=== PATIENT | female | born 1940 | race Caucasian/White ===

== ENCOUNTER → 2016-04-27 | Outpatient (CLI) | payer MEDICARE ==
[~2016-04-27] MED LIST: ALPR0.5T7 PO; AMOX-358 PO; CEPH500C PO; CHOL200014 PO; DEXL60CA PO; DOCU100C37 PO; HYDR-3820 PO; HYDR12.5 PO; IBUP-1773 PO; IOHEXOL 350 MG/ML 100 ML (OMNIPAQUE 350) VIAL IV ONE; LORA10TA7 PO; LOSA50TA36 PO; METR500T PO; NF-XOP-HFA IH; NS 100 ML (IVPB) BAG IV ONE; NYST30PO9 TP; ONDN4T PO; OXYC-201 PO; PANT40TA3 PO; PROM25TA14 PO; SUCR1TAB PO; SUCR1TAB36 PO; Zofran
--- OUTSIDE RECORDS SUMMARY | 2016-04-27 13:37 | XMS REPORT | Continuity of Care Document ---
Author Author [facility] Organization [facility] Address Unknown Phone Unavailable Care Team Providers Care Lab Instructor Name Role Phone ELMA GUZMAN MD PCP Insurance Providers Payer Name Policy Number Subscriber Name Relationship [employer] [id number] Debra Ramirez 19 Self / Same As Patient Blue Cross [facility] Supp [id number] Debra Ramirez 19 Self / Same As Patient Advance Directives Directive Response Recorded Date/Time Advance Directives No 08/05/15 12:08pm Health Care Power of Sign Painter Apprentice No 08/05/15 12:08pm Organ Donor No 08/05/15 12:08pm Resuscitation Status Full Code 08/05/15 12:08pm Problems No problem information available. Medications Current Home Medications Medication Dose Units Route Directions Days/Qty Instructions Start Date Loratadine 10 Mg 10 Mg Oral Daily 08/05/15 Hydrocodone/Acetaminophen 1 Each 1 Each Oral Every 6 Hours as needed for Pain 08/05/15 Losartan Potassium 50 Mg 50 Mg Oral Daily 08/05/15 Hydrochlorothiazide 12.5 Mg 12.5 Mg Oral Daily 08/05/15 Alprazolam 0.5 Mg 0.5 Mg Oral Three Times A Day as needed for Anxiety 08/05/15 Cholecalciferol (Vitamin D3) 2,000 Unit 2,000 Unit Oral Twice A Day 08/05/15 Ondansetron Hcl 4 Mg 4 Mg Oral Every 4HRS as needed for Nausea/Vomiting 08/05/15 Promethazine Hcl (Phenergan Tablet) 25 Mg 25 Mg Oral Every 4HRS as needed for Nausea/Vomiting 08/05/15 Pantoprazole Sodium 40 Mg 40 Mg Oral Daily 08/05/15 Sucralfate 1 Gm 1 Gm Oral 4X Day Before Meals/At Bedtime 08/05/15 Levalbuterol Tartrate 15 Gm 1-2 Puff Inhalation Every 4HRS as needed for Shortness Of Breath 08/05/15 Past Home Medications Medication Directions Ordered Status Cephalexin Monohydrate (Keflex) 500 Mg Capsule, 1 Each Oral Four Times Daily 07/06/10 Discontinued Metronidazole (Flagyl) 500 Mg Tablet, 1 Each Oral Twice A Day 07/06/10 Discontinued Social History Social History Problem Response Recorded Date/Time Alcohol Use Denies Use 08/05/2015 12:08pm Recreational Drug Use No 08/05/2015 12:08pm Recent Foreign Travel No 08/05/2015 12:08pm Recent Infectious Disease Exposure No 08/05/2015 12:08pm Hospitalization with Isolation Denies 08/05/2015 12:08pm Smoking Status Former Smoker 08/05/2015 12:05pm Query Response Start Date Stop Date Smoking Status Former Smoker Hospital Discharge Instructions No hospital discharge instructions. Plan of Care Discharge Date 08/05/15 12:45pm Prescriptions See Medication Section Functional Status No functional status results. Allergies, Adverse Reactions, Alerts Allergen Type Severity Reaction Status Last Updated Levofloxacin Allergy Unknown NAUSEA Active 08/05/15 Immunizations Name Given Type Date of Pneumonia Vaccine 08/05/11 Historical Vital Signs Acute Vital Signs Vital Response Date/Time Pulse Rate (adult) 85 bpm (60 - 90) 08/05/2015 12:08pm O2 Sat by Pulse Oximetry 96 % (88 - 100) 08/05/2015 12:08pm Blood Pressure 164/82 mm Hg 08/05/2015 12:08pm Height (Feet) 5 feet 08/05/2015 12:08pm Height (Inches) 7.00 inches 08/05/2015 12:08pm Height (Calculated Centimeters) 170.719871 cm 08/05/2015 12:08pm Weight (Pounds) 318 pounds 08/05/2015 12:08pm Weight (Ounces) 0.0 oz 08/05/2015 12:08pm Weight (Calculated Grams) 567716.375 gm 08/05/2015 12:08pm Weight (Calculated Kilograms) 144.429510 kilograms 08/05/2015 12:08pm Calculated BMI 52.91 08/05/2015 12:08pm Results Laboratory Results Test Name Result Units Flags Reference Collection Date/Time Result Date/ Time Comments Urine Color YELLOW 08/05/2015 12:35pm 08/05/2015 1:26pm Urine Clarity CLEAR 08/05/2015 12:35pm 08/05/2015 1:26pm Urine pH 5 5-9 08/05/2015 12:35pm 08/05/2015 1:26pm Urine Specific [place] 1.020 1.016-1.022 08/05/2015 12:35pm 2015 1:26pm Urine Protein NEGATIVE NEGATIVE 08/05/2015 12:35pm 08/05/2015 1:26pm Urine Glucose (UA) NEGATIVE NEGATIVE 08/05/2015 12:35pm 08/05/2015 1: 26pm Urine RBC (Auto) NEGATIVE NEGATIVE 08/05/2015 12:35pm 08/05/2015 1: 26pm Urine Ketones NEGATIVE NEGATIVE 08/05/2015 12:35pm 08/05/2015 1:26pm Urine Nitrite NEGATIVE NEGATIVE 08/05/2015 12:35pm 08/05/2015 1:26pm Urine Bilirubin NEGATIVE NEGATIVE 08/05/2015 12:35pm 08/05/2015 1: 26pm Urine Urobilinogen NORMAL MG/DL NORMAL 08/05/2015 12:35pm 08/05/2015 1: 26pm Urine Leukocyte Esterase NEGATIVE NEGATIVE 08/05/2015 12:35pm 2015 1:26pm Urine RBC NONE /HPF 08/05/2015 12:35pm 08/05/2015 1:26pm Urine WBC NONE /HPF 08/05/2015 12:35pm 08/05/2015 1:26pm Urine Bacteria NEGATIVE /HPF 08/05/2015 12:35pm 08/05/2015 1:26pm Urine Squamous Epithelial Cells 5-10 /HPF 08/05/2015 12:35pm 2015 1:26pm Urine Crystals NONE /LPF 08/05/2015 12:35pm 08/05/2015 1:26pm Urine Casts NONE /LPF 08/05/2015 12:35pm 08/05/2015 1:26pm Urine Mucus NEGATIVE /LPF 08/05/2015 12:35pm 08/05/2015 1:26pm Urine Culture Indicated NO 08/05/2015 12:35pm 08/05/2015 1:26pm Procedures Procedure Status Date Provider(s) Tracing only of electrocardiogram Active 08/05/15 ADELINA KEEN DO Encounters Encounter Location Arrival/Admit Date Discharge/Depart Date Attending Provider Departed Clinic [facility] 08/05/15 11:54am 08/05/15 12: 45pm ADELINA KEEN DO
[2016-04-27 14:14] LABS: BLOOD UREA NITROGEN 15 MG/DL (7-18); BUN/CREATININE RATIO 18; CREATININE SERUM 0.82 MG/DL (0.60-1.30); GFR ESTIMATED > 60
--- NOTE | 2016-04-27 18:17 | Diagnostic Imaging Report ---
PROCEDURE: CT chest and abdomen with contrast. TECHNIQUE: Multiple contiguous axial images were obtained through the chest and abdomen after the administration of intravenous contrast. INDICATION: Left upper quadrant pain. 100 mL of Omnipaque 350 is administered intravenously. FINDINGS: CT chest: The lungs demonstrate minimal atelectasis or scarring in the left lung base and in the anterior upper right lung. A tiny calcified granuloma in the lateral mid right lung is seen. There is otherwise no significant consolidation, mass or suspicious nodule. The heart size is normal. No pericardial or pleural effusion. No mediastinal mass. No significantly enlarged lymph nodes in the mediastinum or juve are seen. No axillary lymphadenopathy is noted. The osseous structures demonstrate degenerative changes in the mid and lower thoracic spine. CT abdomen: The liver demonstrates diffuse hepatic steatosis. The spleen, the pancreas and adrenal glands appear unremarkable. Cholecystectomy clips are seen. The kidneys have symmetric enhancement and contrast excretion. No hydronephrosis. The abdominal aorta is normal in caliber. No para-aortic significantly enlarged lymph nodes seen. No fluid collection or free fluid is seen in the abdomen. There is a tiny fat-containing umbilical hernia. The osseous structures demonstrate degenerative change in the lower lumbar spine. IMPRESSION: CT chest: No acute process. CT abdomen: 1. Hepatic steatosis. 2. Tiny fat-containing umbilical hernia. Dictated by: Dictated on workstation # [id number]
== END ==
LOC: RAD 13:33
PROVIDERS: ATTEND Nurse Practitioner Family
DX: R10.32 Left lower quadrant pain (principal)
CPT/HCPCS: 36415; 71260; 74160; 82565; 84520

== ENCOUNTER 2020-06-15 10:46 | Emergency (ER) | payer MEDICARE ==
[~2020-06-15] VITALS: Ht 170.1 cm; Wt 145.4 kg
[~2020-06-15 10:46] MED LIST changes: +ACHYD1T PO; -HYDR-3820 PO; -IOHEXOL 350 MG/ML 100 ML (OMNIPAQUE 350) VIAL IV ONE; -LOSA50TA36 PO; +LOSA50TA63 PO; -NS 100 ML (IVPB) BAG IV ONE; -OXYC-201 PO; +OXYC1TAB16 PO; -PANT40TA3 PO; +PANT40TA52 PO
--- NOTE | 2020-06-15 11:28 | ED Back Pain ---
General Chief Complaint: General Problems/Pain Stated Complaint: BACK PAIN Nursing Triage Note: TO ROOM PER W/C REPORTS SHE HAS HAD CHRONIC BACK PAIN THAT SHE TAKE HYDROCODONE FOR. WAS DX WITH UTI BY PCP AND WAS GIVEN ROCEPHIN IM LAST IM WAS ON JUNE 09 HAVING PAIN IN R HIP AREA WHERE IM WAS GIVEN THAT HYDROCODONE IS NOT HELPING HAD COVID IN DEC Nursing Sepsis Screen: No Definite Risk Source of Information: Patient Exam Limitations: No Limitations History of Present Illness Date Seen by Provider: Jun 15, 2020 Time Seen by Provider: 11:06 Initial Comments Patient presents ER by private conveyance from home with her and chief complaint of right lower back pain radiating around to her front. No dysuria diarrhea constipation nausea bloating rash or pruritus. She is had this pain today and yesterday but it is chronic low back pain. No falls or trauma. She was treated for UTI over a week ago by Andie Hollis her primary care provider. She took her routine hydrocodone and it did not help her pain much. Allergies and Home Medications Allergies Coded Allergies: levofloxacin (Verified Allergy, Unknown, NAUSEA, 08/05/15) Home Medications Alprazolam 0.5 Mg Tablet, 0.5 MG PO TID PRN for ANXIETY, (Reported) Cholecalciferol (Vitamin D3) 2,000 Unit Tablet, 2,000 UNIT PO DAILY, (Reported) Dexlansoprazole 60 Mg Arnoldo.bp, 60 MG PO DAILY Prescribed by: JOSE WHITNEY on 10/29/15 1205 Docusate Sodium 100 Mg Capsule, 100 MG PO BID Prescribed by: ADELINA KEEN on 08/11/15 0954 Hydrochlorothiazide 12.5 Mg Capsule, 12.5 MG PO DAILY, (Reported) Hydrocodone Bit/Acetaminophen 1 Each Tablet, 1 EACH PO Q6H PRN for PAIN Prescribed by: ADELINA KEEN on 08/11/15 0954 Loratadine 10 Mg Tablet, 10 MG PO DAILY PRN for ALLERGIES, (Reported) Losartan Potassium 50 Mg Tablet, 50 MG PO DAILY, (Reported) Ondansetron HCl 4 Mg Tab, 4 MG PO Q6H PRN for NAUSEA/VOMITING, (Reported) Oxycodone HCl/Acetaminophen 1 Each Tablet, 1-2 EACH PO Q6H Prescribed by: JOSE WHITNEY on 10/29/15 1205 Pantoprazole Sodium 40 Mg Tablet.dr, 40 MG PO DAILY, (Reported) Promethazine HCl 25 Mg Tablet, 25 MG PO Q4H PRN for NAUSEA/VOMITING, (Reported) Sucralfate 1 Gm Tablet, 1 GM PO QID Prescribed by: JOSE WHITNEY on 10/29/15 1205 Patient Home Medication List Home Medication List Reviewed: Yes Review of Systems Constitutional: No chills, No diaphoresis EENTM: No ear discharge, No ear pain Respiratory: No cough, No phlegm Cardiovascular: No chest pain, No palpitations Gastrointestinal: No abdominal pain, No nausea Genitourinary: No discharge, No dysuria Past Ebhnupy-Ddmuyv-Vlmkdl Hx Patient Social History Alcohol Use: Denies Use Smoking Status: Never a Smoker Former Smoker, Quit: Feb 27, 1985 Recent Infectious Disease Expo: No Recent Hopitalizations: No Immunizations Up To Date Date of Pneumonia Vaccine: Feb 28, 2012 Seasonal Allergies Seasonal Allergies: No Past Medical History Adenoidectomy, Gallbladder, 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, Tonsillectomy Hypertension Reproductive Disorders: No Chronic Constipation Arthritis, Chronic Back Pain Depression Family Medical History Arthritis 19 FATHER 19 MOTHER G8 BROTHER G8 SISTER Asthma 19 FATHER 19 MOTHER Cardiovascular disease G8 BROTHER Diabetes mellitus G8 BROTHER G8 SISTER Hypertension 19 FATHER 19 MOTHER G8 BROTHER G8 SISTER Myocardial infarction G8 BROTHER Physical Exam Vital Signs Vital Signs - First Documented 06/15/20 10:55 Temp 36.4 Pulse 104 Resp 18 B/P (MAP) 227/107 (147) Pulse Ox 96 O2 Delivery Room Air Capillary Refill : Less Than 3 Seconds Height, Weight, BMI Height: 5'7.00" Weight: 317lbs. 0.0oz. 143.296003lj; 50.00 BMI Method:Actual General Appearance: Mild Distress, Obese HEENT: PERRL/EOMI, Pharynx Normal, Moist Mucous Membranes Neck: Full Range of Motion, Normal Inspection Cardiovascular: Regular Rate, Rhythm, Normal Peripheral Pulses Respiratory: No Accessory Muscle Use, No Respiratory Distress Gastrointestinal: Normal Bowel Sounds, Non Tender, Soft Back: Normal Inspection, No CVA Tenderness, No Vertebral Tenderness, Vertebral Tenderness (Right paravertebral tenderness reproducible without sciatica) Neurologic/Psychiatric: Alert, Oriented x3, No Motor/Sensory Deficits Progress/Results/Core Measures Results/Orders Lab Results Laboratory Tests Test 06/15/20 11:26 Range/Units Urine Color YELLOW Urine Clarity CLEAR Urine pH 6.0 5-9 Urine Specific [place] 1.010 L 1.016-1.022 Urine Protein NEGATIVE NEGATIVE Urine Glucose (UA) NEGATIVE NEGATIVE Urine Ketones NEGATIVE NEGATIVE Urine Nitrite NEGATIVE NEGATIVE Urine Bilirubin NEGATIVE NEGATIVE Urine Urobilinogen 0.2 < = 1.0 MG/DL Urine Leukocyte Esterase NEGATIVE NEGATIVE Urine RBC (Auto) NEGATIVE NEGATIVE Urine RBC NONE /HPF Urine WBC NONE /HPF Urine Crystals NONE /LPF Urine Bacteria NEGATIVE /HPF Urine Casts NONE /LPF Urine Mucus NEGATIVE /LPF Urine Culture Indicated NO My Orders Orders - JACQUES COWAN Ua Culture If Indicated (06/15/20 10:48) Ketorolac Injection (Toradol Injection) (06/15/20 11:30) Medications Given in ED Current Medications Medications Dose Ordered Sig/[place] Route Start Time Stop Time Status Last Admin Dose Admin Ketorolac Tromethamine 60 mg ONCE ONCE IM 06/15/20 11:30 06/15/20 11:31 DC 06/15/20 12:01 60 MG Vital Signs/I&O 06/15/20 10:55 Temp 36.4 Pulse 104 Resp 18 B/P (MAP) 227/107 (147) Pulse Ox 96 O2 Delivery Room Air Blood Pressure Mean: 147 Progress Progress Note : Time: 11:25 Progress Note Lumbago without red flag signs. Plan to give her a shot of Toradol and check a urinalysis. She is already set up to start physical therapy soon. We will put her on a Medrol Dosepak. Departure Impression Primary Impression: Lumbago Qualified Codes: M54.5 - Low back pain Disposition: 01 HOME, SELF-CARE Condition: Stable Departure-Patient Inst. Decision time for Depature: 12:24 Referrals: NO,LOCAL PHYSICIAN (PCP) Primary Care Physician LEXII HOLLIS (Family) Primary Care Physician Patient Instructions: Low Back Pain (DC) Add. Discharge Instructions: Take your pain medicines as prescribed by your primary care team. follow up clerk the Medrol Dosepak and take as prescribed. Follow-up in the next 2 to 3 weeks with your primary care doctor. Keep your scheduled physical therapy All discharge instructions reviewed with patient and/or family. Voiced understanding. Scripts Methylprednisolone (Methylprednisolone Dose Pack) 4 Mg Tab.ds.pk 4 MG PO UD for 6 Days, #21 PKG 0 Refills PER DOSE PACK INSTRUCTIONS Prov: JACQUES COWAN 06/15/20 JACQUES COWAN Jun 15, 2020 11:27
[2020-06-15] MEDS ORDERED: KETOROLAC 60 MG/2 ML VIAL IM ONE (11:30)
[2020-06-15 11:32] LABS: BILIRUBIN,URINE NEGATIVE (NEGATIVE); CLARITY,URINE CLEAR; COLOR,URINE YELLOW; GLUCOSE, URINE (UA) NEGATIVE (NEGATIVE); KETONES,URINE NEGATIVE (NEGATIVE); LEUKOCYTE ESTERASE ,URINE NEGATIVE (NEGATIVE); NITRITE,URINE NEGATIVE (NEGATIVE); PROTEIN,URINE NEGATIVE (NEGATIVE)
[2020-06-15 11:40] LABS: BACTERIA,URINE NEGATIVE /HPF
[2020-06-15] MEDS ORDERED: METH4TAB10 PO (12:45)
[2020-06-15 12:51] VITALS: BP 162/81
== END 2020-06-15 12:51 | disposition home or self-care (01) ==
LOC: EDUNIT# 10:46 → ER 10:49
DX: G89.29 Other chronic pain (principal); M54.5 Low back pain; I10 Essential (primary) hypertension; K59.09 Other constipation; F32.9 Major depressive disorder, single episode, unspecified; Z87.891 Personal history of nicotine dependence; Z88.1 Allergy status to other antibiotic agents; Z79.891 Long term (current) use of opiate analgesic
CPT/HCPCS: 81000; 99284

== ENCOUNTER 2020-06-17 19:51 | Emergency (ER) | payer MEDICARE ==
[~2020-06-17] VITALS: Ht 170.2 cm; Wt 145.1 kg
[~2020-06-17 19:51] MED LIST changes: +METH4TAB10 PO
[2020-06-17 20:39] LABS: BILIRUBIN,URINE NEGATIVE (NEGATIVE); CLARITY,URINE CLEAR; COLOR,URINE YELLOW; GLUCOSE, URINE (UA) NEGATIVE (NEGATIVE); KETONES,URINE NEGATIVE (NEGATIVE); LEUKOCYTE ESTERASE ,URINE NEGATIVE (NEGATIVE); NITRITE,URINE NEGATIVE (NEGATIVE); PH,URINE 5.5 (5-9); PROTEIN,URINE NEGATIVE (NEGATIVE)
[2020-06-17] MEDS ORDERED: KETOROLAC 30 MG/ML VIAL IVP STA (20:43)
[2020-06-17] MEDS ORDERED: NS IV 1000 ML 1,000 ML IV SCH (20:45)
[2020-06-17 20:47] LABS: BACTERIA,URINE NEGATIVE /HPF
--- NOTE | 2020-06-17 20:50 | ED Abdominal Pain ---
General Chief Complaint: Back Problems Stated Complaint: BACK PAIN Nursing Triage Note: PT ARRIVED BY PRIVATE VEHICLE WITH CHIEF COMPLAINT OF BACK PAIN. PT WAS SEEN ON MONDAY FOR THE SAME ISSUE. SHE WAS GIVEN A TORADOL SHOT AROUND NOON ON MONDAY AND IT LASTED ABOUT 24 HOURS (UNTIL MONDAY LATE MORNING). PT WAS WITH HER IN ROOM. VITAL SIGNS WERE COMPLETED. PT STATED SHE WAS SEEN AT [facility] AND THEY TESTED HER URINE AND FOUND E. COLI. SHE RECEIVED 7 SHOTS ADN THE LAST SHOT WAS IN THE AREA OF HER PAIN. HER PAIN WAS PREVIOUSLY JUST IN BACK, BUT NOW IT IS RADIATING TO HER RIGHT SIDE. PT HAS NEVER HAD A KIDNEY STONE. PT DOES HAVE CHRONIC BACK PAIN, BUT THIS IS DIFFERENT. PT HAS TRIED TAKING HER HYDROCODONE SHE IS PRESCRIBED AND TYLENOL IT IS NOT HELPING. PT IS ALSO TRYING COLD AND HOT PACKS. THEY ARE NOT WORKING EITHER. PT WAS ALERT, ORIENTED X 4 ON ARRIVAL. PAST MEDICAL HISTORY HAS NOT CHANGED SINCE MONDAY. Sepsis Screen: No Definite Risk Source of Information: Patient History of Present Illness Date Seen by Provider: Jun 17, 2020 Time Seen by Provider: 20:27 Initial Comments PT ARRIVES VIA POV FROM HOME C/O PAIN IN RIGHT FLANK, RADIATING TO RIGHT MID AND LOWER ABDOMEN SINCE LAST Monday06/14/20 PAIN BEGAN SUDDENLY ON MONDAY, WHILE SITTING NOTHING WORSENS OR IMPROVES PAIN--HAS TRIED ICE/HEAT. PT TAKES HYDROCODONE FOR CHRONIC BACK PAIN AND TOOK 1 THIS MORNING WITHOUT RELIEF. HAS DEGENERATIVE DISC DISEASE, SPINAL STENOSIS, ARTHRITIS AND PINCHED NERVE IN HER BACK STATES PAIN IS WORSE THAN HAVING A BABY NO URINARY SYMPTOMS NO FEVER/SWEATS/CHILLS NO NAUSEA/VOMITING/DIARRHEA--HAD NORMAL, HARD BM THIS AM--ALWAYS CONSTIPATED NO HISTORY OF SIMILAR SEEN HERE Monday06/15/20 FOR THIS PROBLEM, URINE WAS CLEAR AT THAT TIME PT WAS GIVEN A SHOT OF TORADOL AND IT DID HELP FOR ABOUT 24 HOURS PRIOR TO THAT, PT HAD BEEN SEEN BY ANNA HOLLIS AT [facility] AND HAD BEEN TOLD THAT HER URINE GREW OUT E.COLI, AND PT HAS COMPLETED 7 SHOTS OF AN UNKNOWN ANTIBIOTIC. PT HAS HAD PRIOR CHOLECYSTECTOMY, APPENDECTOMY, HYSTERECTOMY WITH RIGHT SALPINGO-OOPHORECTOMY, UMBILICAL HERNIA SEBACEOUS CYST REMOVED AND BLADDER SUSPENSION SURGERY NO PRIOR KIDNEY OR LIVER OR GI/BOWEL PROBLEMS. PCP: ANNA HOLLIS AT [facility] Allergies and Home Medications Allergies Coded Allergies: levofloxacin (Verified Allergy, Unknown, NAUSEA, 08/05/15) Home Medications Alprazolam 0.5 Mg Tablet, 0.5 MG PO TID PRN for ANXIETY, (Reported) Cholecalciferol (Vitamin D3) 2,000 Unit Tablet, 2,000 UNIT PO DAILY, (Reported) Cyclobenzaprine HCl 10 Mg Tablet, 10 MG PO Q8H PRN for SPASMS Prescribed by: NURIS LOPEZ on 06/17/202231 Dexlansoprazole 60 Mg Cap.bp, 60 MG PO DAILY Prescribed by: JOSE WHITNEY on 10/29/15 120 Docusate Sodium 100 Mg Capsule, 100 MG PO BID Prescribed by: ADELINA KEEN on 08/11/15 09 Hydrochlorothiazide 12.5 Mg Capsule, 12.5 MG PO DAILY, (Reported) Hydrocodone Bit/Acetaminophen 1 Each Tablet, 1 EACH PO Q6H PRN for PAIN Prescribed by: ADELINA KEEN on 08/11/15953 Ketorolac Tromethamine 10 Mg Tablet, 10 MG PO Q6H Prescribed by: NURIS LOPEZ on 06/17/202231 Loratadine 10 Mg Tablet, 10 MG PO DAILY PRN for ALLERGIES, (Reported) Losartan Potassium 50 Mg Tablet, 50 MG PO DAILY, (Reported) Methylprednisolone 4 Mg Tab.ds.pk, 4 MG PO UD PER DOSE PACK INSTRUCTIONS Prescribed by: JACQUES COWAN on 06/15/20 1245 Ondansetron HCl 4 Mg Tab, 4 MG PO Q6H PRN for NAUSEA/VOMITING, (Reported) Oxycodone HCl/Acetaminophen 1 Each Tablet, 1-2 EACH PO Q6H Prescribed by: JOSE WHITNEY on 10/29/15 120 Pantoprazole Sodium 40 Mg Tablet.dr, 40 MG PO DAILY, (Reported) Promethazine HCl 25 Mg Tablet, 25 MG PO Q4H PRN for NAUSEA/VOMITING, (Reported) Sucralfate 1 Gm Tablet, 1 GM PO QID Prescribed by: JOSE WHITNEY on 10/29/15 1205 Patient Home Medication List Home Medication List Reviewed: Yes Review of Systems Review of Systems Constitutional: no symptoms reported; No chills, No diaphoresis, No dizziness, No fever Respiratory: No Symptoms Reported Cardiovascular: No Symptoms Reported Gastrointestinal: See HPI, Abdominal Pain, Constipated; Denies Diarrhea, Denies Nausea, Denies Vomiting Genitourinary: Denies Burning, Denies Frequency; Flank Pain; Denies Hematuria, Denies Pain, Denies Urgency Musculoskeletal: see HPI, back pain Skin: no symptoms reported Psychiatric/Neurological: No Symptoms Reported Endocrine: No Symptoms Reported Hematologic/Lymphatic: No Symptoms Reported Past [id number]-[id number]-Ohqyoy Hx Past Med/Social Hx: Reviewed and Corrections made Patient Social History Alcohol Use: Denies Use Smoking Status: Former Smoker Former Smoker, Quit: Feb 27, 1985 Recent Infectious Disease Expo: No Recent Hopitalizations: No Immunizations Up To Date Date of Pneumonia Vaccine: Feb 28, 2012 Seasonal Allergies Seasonal Allergies: No Past Medical History Surgeries: Yes (Rectocele/Bladder sling) Abdominal, Adenoidectomy, Appendectomy, Bladder Surgery, Gallbladder, 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, Oophorectomy, Rectal, Tonsillectomy Respiratory: Yes Chronic Bronchitis Cardiac: Yes Hypertension Neurological: No 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, Menopausal Genitourinary: No Gastrointestinal: Yes (DIVERTICULOSIS NOTED ON CT-NO HX OF ACUTE DIVERTICULITIS) Chronic Constipation, Diverticulosis Musculoskeletal: Yes (SPINAL STENOSIS, "PINCHED NERVE" IN BACK) Degenerate Disk Disease, Arthritis, Chronic Back Pain Endocrine: No (MORBID OBESITY) HEENT: No Cancer: No Psychosocial: Yes Depression Integumentary: Yes (SEBACEOUS CYST) Blood Disorders: No Family Medical History Arthritis 19 FATHER 19 MOTHER G8 BROTHER G8 SISTER Asthma 19 FATHER 19 MOTHER Cardiovascular disease G8 BROTHER Diabetes mellitus G8 BROTHER G8 SISTER Hypertension 19 FATHER 19 MOTHER G8 BROTHER G8 SISTER Myocardial infarction G8 BROTHER PAST SURGICAL HISTORY: -UMBILICAL SEBACEOUS CYST REMOVED -CHOLECYSTECTOMY -APPENDECTOMY -HYSTERECTOMY WITH RIGHT SALPINGO-OOPHORECTOMY -BLADDER SUSPENSION SURGERY--BLADDER SLING AND RECTOCOELE REPAIR PT TESTED + FOR COVID-19 ON 02/23/21--NO HOSPITALIZATION, OR SEVERE ILLNESS Physical Exam Vital Signs Vital Signs - First Documented 06/17/20 20:00 Temp 36.1 Pulse 92 Resp 18 B/P (MAP) 204/115 (144) Pulse Ox 97 O2 Delivery Room Air Capillary Refill : Less Than 3 Seconds Height/Weight/BMI Height: 5'7.00" Weight: 317lbs. 0.0oz. 143.588812ve; 50.00 BMI Method:Actual General Appearance: WD/WN, no apparent distress, obese (MORBIDLY ), other (RECLINING ON ER CART. DOES NOT APPEAR TO BE IN ANY DISCOMFORT OR DISTRESS AT THIS TIME) Respiratory: normal breath sounds, no respiratory distress, no accessory muscle use, other (RIGHT LOWER RIB TENDERNESS--ALL ALONG R IBS--ANTERIOR/LATERAL/POSTERIOR) Cardiovascular: regular rate, rhythm, no murmur Gastrointestinal: soft, tenderness (RIGHT FLANK, RIGHT LOWER RIB, RIGHT MID AND RIGHT UPPER QUADRANT TENDERNESS. ) Extremities: no calf tenderness, normal capillary refill, pedal edema (DIFFICULT TO DETERMINE DEGREE OF EDEMA DUE TO BODY HABITUS) Back: no vertebral tenderness, CVA tenderness (R) Neurologic/Psychiatric: no motor/sensory deficits, alert, normal mood/affect, oriented x 3 Skin: normal color, warm/dry; No ecchymosis, No rash Progress/Results/Core Measures Results/Orders Lab Results Laboratory Tests Test 06/17/20 20:30 06/17/20 21:42 Range/Units Urine Color YELLOW Urine Clarity CLEAR Urine pH 5.5 5-9 Urine Specific [place] 1.010 L 1.016-1.022 Urine Protein NEGATIVE NEGATIVE Urine Glucose (UA) NEGATIVE NEGATIVE Urine Ketones NEGATIVE NEGATIVE Urine Nitrite NEGATIVE NEGATIVE Urine Bilirubin NEGATIVE NEGATIVE Urine Urobilinogen 0.2 < = 1.0 MG/DL Urine Leukocyte Esterase NEGATIVE NEGATIVE Urine RBC (Auto) NEGATIVE NEGATIVE Urine RBC NONE /HPF Urine WBC NONE /HPF Urine Squamous Epithelial Cells 2-5 /HPF Urine Crystals NONE /LPF Urine Bacteria NEGATIVE /HPF Urine Casts NONE /LPF Urine Mucus NEGATIVE /LPF Urine Culture Indicated NO White Blood Count 12.0 H 4.3-11.0 10^3/uL Red Blood Count 4.65 3.80-5.11 10^6/uL Hemoglobin 14.3 11.5-16.0 g/dL Hematocrit 44 35-52 % Mean Corpuscular Volume 95 80-99 fL Mean Corpuscular Hemoglobin 31 25-34 pg Mean Corpuscular Hemoglobin Concent 32 32-36 g/dL Red Cell Distribution Width 13.8 10.0-14.5 % Platelet Count 325 130-400 10^3/uL Mean Platelet Volume 8.9 L 9.0-12.2 fL Immature Granulocyte % (Auto) 1 % Neutrophils (%) (Auto) 79 H 42-75 % Lymphocytes (%) (Auto) 12 12-44 % Monocytes (%) (Auto) 8 0-12 % Eosinophils (%) (Auto) 0 0-10 % Basophils (%) (Auto) 0 0-10 % Neutrophils # (Auto) 9.5 H 1.8-7.8 10^3/uL Lymphocytes # (Auto) 1.4 1.0-4.0 10^3/uL Monocytes # (Auto) 0.9 0.0-1.0 10^3/uL Eosinophils # (Auto) 0.0 0.0-0.3 10^3/uL Basophils # (Auto) 0.0 0.0-0.1 10^3/uL Immature Granulocyte # (Auto) 0.1 0.0-0.1 10^3/uL Sodium Level 140 135-145 MMOL/L Potassium Level 4.3 3.6-5.0 MMOL/L Chloride Level 102 98-107 MMOL/L Carbon Dioxide Level 26 21-32 MMOL/L Anion Gap 12 5-14 MMOL/L Blood Urea Nitrogen 16 7-18 MG/DL Creatinine 0.79 0.60-1.30 MG/DL Estimat Glomerular Filtration Rate > 60 BUN/Creatinine Ratio 20 Glucose Level 105 70-105 MG/DL Calcium Level 9.7 8.5-10.1 MG/DL Corrected Calcium 9.5 8.5-10.1 MG/DL Total Bilirubin 0.5 0.1-1.0 MG/DL Aspartate Amino Transf (AST/SGOT) 22 5-34 U/L Alanine Aminotransferase (ALT/SGPT) 32 0-55 U/L Alkaline Phosphatase 82 40-136 U/L Total Protein 7.7 6.4-8.2 GM/DL Albumin 4.2 3.2-4.5 GM/DL Amylase Level 111 25-125 U/L Lipase 10 8-78 U/L My Orders Orders - NURIS LOPEZ DO Ed Iv/Invasive Line Start (06/17/20 20:34) Monitor-Rhythm Ecg Trace Only (06/17/20 20:34) Acute Abd Series (06/17/20 20:34) Amylase (06/17/20 20:34) Cbc With Automated Diff (06/17/20 20:34) Comprehensive Metabolic Panel (06/17/20 20:34) Lipase (06/17/20 20:34) Ua Culture If Indicated (06/17/20 20:34) Ct Abd/Pelvis Wo(Kidney Stone) (06/17/20 20:43) Ed Iv/Invasive Line Start (06/17/20 20:43) Ns Iv 1000 Ml (Sodium Chloride 0.9%) (06/17/20 20:45) Ketorolac Injection (Toradol Injection) (06/17/20 20:43) Rx-Cyclobenzaprine Tablet (Rx-Flexeril T (06/17/20 22:27) Rx-Tramadol Hcl (Rx-Ultram) (06/17/20 22:27) Vital Signs/I&O 06/17/20 06/17/20 20:00 22:45 Temp 36.1 36.1 Pulse 92 87 Resp 18 18 B/P (MAP) 204/115 (144) 175/98 (144) Pulse Ox 97 98 O2 Delivery Room Air Room Air 06/18/20 00:00 Intake Total 1000 ml Balance 1000 ml Blood Pressure Mean: 144 Progress Progress Note : Progress Note GIVEN IV FLUIDS AND TORADOL WITH IMPROVEMENT IN PAIN DISCUSSED WITH PT AND POSSIBLE CAUSES, INCLUDING POSSIBLE EARLY SYMPTOMS OF SHINGLES, AND TO WATCH FOR RASH. ADVISED THAT THEY SHOULD CONTACT THEIR DR SOON POSSIBLE IF A RASH APPEARS IN THE AREA OF PAIN. BOTH PT AND STATE THEY HAVE SEEN SHINGLES ON OTHER PEOPLE IN THE PAST, AND ARE AWARE OF WHAT TO LOOK FOR. PT HAS NOT HAD THE SHINGLES VACCINE. PT HAS NOT HAD FLU VACCINE THIS SEASON Diagnostic Imaging Comments CT ABDOMEN/PELVIS--PER RADIOLOGIST REPORT AT 2129 IMPRESSION: 1. No evidence of obstructing renal calculi or hydronephrosis. Punctate nonobstructing calculus is seen in the inferior pole of the left kidney measuring 2 mm. 2. Diverticulosis of the descending and sigmoid colon without evidence of acute diverticulitis. 3. Moderate amount of stool in the colon, likely representing constipation. ABDOMEN XRAYS--PER RADIOLOGIST REPORT AT 2209 IMPRESSION: 1. No acute pleuroparenchymal process. 2. Large amount of stool throughout the colon likely representing constipation. Reviewed: Reviewed by Me Departure Impression Primary Impression: RIGHT RIB AND FLANK PAIN Additional Impressions: Right sided abdominal pain Constipation Disposition: HOME, SELF-CARE Condition: Improved Departure-Patient Inst. Referrals: NO,LOCAL PHYSICIAN (PCP) Primary Care Physician LEXII HOLLIS (Family) Primary Care Physician Patient Instructions: Abdominal Pain, Adult ED, Constipation, Adult (DC), Muscle and Bone Pain (DC) Add. Discharge Instructions: LOTS OF CLEAR LIQUIDS TAKE MIRALAX DAILY CONTINUE YOUR REGULAR HYDROCODONE PRESCRIBED FOR PAIN FOLLOW UP WITH YOUR DR IN 2-3 DAYS IF NO BETTER, RETURN TO ER IF WORSE All discharge instructions reviewed with patient and/or family. Voiced understanding. Scripts Ketorolac Tromethamine (Ketorolac Tromethamine) 10 Mg Tablet 10 MG PO Q6H for Pain, #15 TAB Prov: NURIS LOPEZ DO 06/17/20 Cyclobenzaprine HCl (Cyclobenzaprine HCl) 10 Mg Tablet 10 MG PO Q8H PRN for SPASMS, #15 TAB 0 Refills Prov: NURIS LOPEZ DO 06/17/20 NURIS LOPEZ DO Jun 17, 2020 20:50
--- NOTE | 2020-06-17 21:27 | Diagnostic Imaging Report ---
PROCEDURE: CT urinary tract, rule out kidney stone. TECHNIQUE: Multiple contiguous axial images were obtained through the abdomen and pelvis without the use of intravenous contrast. Auto Exposure Controls were utilized during the CT exam to meet ALARA standards for radiation dose reduction. INDICATION: Flank pain. COMPARISON: 04/27/2016. FINDINGS: The heart is unremarkable. The lung bases are clear. No evidence of obstructing calculi or hydronephrosis. Nonobstructing calculus is seen in the inferior pole of the left kidney measuring 2 mm. The liver, spleen and adrenal glands have a normal noncontrast CT appearance. There is fatty atrophy of the pancreas. The gallbladder is surgically absent. There is no pathologically enlarged mesenteric or retroperitoneal adenopathy. The bowel loops are nondilated. The appendix is visualized in the right lower quadrant and has a normal appearance. Diverticuli are seen in the descending and sigmoid colon without acute diverticulitis. A moderate amount of stool is seen in the colon. There is no free fluid or free air. No acute osseous abnormalities. There is calcified aortic and iliac atherosclerotic plaque without aneurysm. Ureters and bladder are normal. There is no free air, loculated collection or adenopathy in the pelvis. IMPRESSION: 1. No evidence of obstructing renal calculi or hydronephrosis. Punctate nonobstructing calculus is seen in the inferior pole of the left kidney measuring 2 mm. 2. Diverticulosis of the descending and sigmoid colon without evidence of acute diverticulitis. 3. Moderate amount of stool in the colon, likely representing constipation. Dictated by: Dictated on workstation # [id number]
[2020-06-17 21:49] LABS: BASOPHILS % (AUTO) 0 % (0-10); EOSINOPHILS % (AUTO) 0 % (0-10); HEMATOCRIT 44 % (35-52); HEMOGLOBIN 14.3 g/dL (11.5-16.0); LYMPHOCYTES # (AUTO) 1.4 10^3/uL (1.0-4.0); LYMPHOCYTES % (AUTO) 12 % (12-44); MEAN CORPUSCULAR HEMOGLOBIN 31 pg (25-34); MEAN CORPUSCULAR HGB CONC 32 g/dL (32-36); MEAN CORPUSCULAR VOLUME 95 fL (80-99); MEAN PLATELET VOLUME 8.9 fL (9.0-12.2); MONOCYTES # (AUTO) 0.9 10^3/uL (0.0-1.0); MONOCYTES % (AUTO) 8 % (0-12); NEUTROPHILS # (AUTO) 9.5 10^3/uL (1.8-7.8); NEUTROPHILS % (AUTO) 79 % (42-75); PLATELET COUNT 325 10^3/uL (130-400)
--- NOTE | 2020-06-17 21:54 | Diagnostic Imaging Report ---
PATIENT HISTORY: Abdominal pain. TECHNIQUE: Six views of the chest and abdomen were obtained. COMPARISON: 04/27/2016. FINDINGS: The lung volumes are normal. No focal consolidation is seen. No large pleural effusion or pneumothorax is seen. The cardiomediastinal silhouette is normal in size and contour. No acute osseous abnormality is seen. No evidence of bowel obstruction or large collection of free intraperitoneal air. Large amount of stool seen throughout the colon. The osseous structures are unremarkable. IMPRESSION: 1. No acute pleuroparenchymal process. 2. Large amount of stool throughout the colon likely representing constipation. Dictated by: Dictated on workstation # [id number]
[2020-06-17 22:19] LABS: ALANINE AMINOTRANSFERASE 32 U/L (0-55); ALBUMIN 4.2 GM/DL (3.2-4.5); ALKALINE PHOSPHATASE 82 U/L (40-136); AMYLASE 111 U/L (25-125); BILIRUBIN,TOTAL 0.5 MG/DL (0.1-1.0); BUN/CREATININE RATIO 20; CALCIUM 9.7 MG/DL (8.5-10.1); CARBON DIOXIDE 26 MMOL/L (21-32); CHLORIDE 102 MMOL/L (98-107); CREATININE SERUM 0.79 MG/DL (0.60-1.30); GFR ESTIMATED > 60; GLUCOSE 105 MG/DL (70-105); LIPASE 10 U/L (8-78); POTASSIUM 4.3 MMOL/L (3.6-5.0); SODIUM 140 MMOL/L (135-145); TOTAL PROTEIN 7.7 GM/DL (6.4-8.2)
[2020-06-17] MEDS ORDERED: RX-CYCLOBENZAPRINE 10 MG (FLEXERIL) TAB PPK#3 PO STA (22:27)
[2020-06-17] MEDS ORDERED: KETO10TA PO (22:32)
[2020-06-17] MEDS ORDERED: CYCL10TA9 PO (22:32)
[2020-06-17 22:45] VITALS: BP 175/98
== END 2020-06-17 22:46 | disposition home or self-care (01) ==
LOC: EDUNIT# 19:51 → ER 19:53
DX: R07.81 Pleurodynia (principal); R10.11 Right upper quadrant pain; K59.00 Constipation, unspecified; E66.01 Morbid (severe) obesity due to excess calories; I10 Essential (primary) hypertension; G89.29 Other chronic pain; M54.9 Dorsalgia, unspecified; Z68.43 Body mass index [BMI] 50.0-59.9, adult; Z88.1 Allergy status to other antibiotic agents; Z87.891 Personal history of nicotine dependence; Z79.891 Long term (current) use of opiate analgesic; Z79.52 Long term (current) use of systemic steroids; Z79.899 Other long term (current) drug therapy
CPT/HCPCS: 36415; 74022; 74176; 80053; 81000; 82150; 83690; 85025; 96361; 96374

== ENCOUNTER 2020-06-29 17:11 | Emergency (ER) | payer MEDICARE ==
[~2020-06-29] VITALS: Ht 170.2 cm; Wt 145.1 kg
[~2020-06-29 17:11] MED LIST changes: +CYCL10TA9 PO; +KETO10TA PO
--- NOTE | 2020-06-29 17:43 | ED Back Pain ---
General Chief Complaint: Back Problems Stated Complaint: BACK/SIDE PAIN Nursing Triage Note: PT ARRIVED BY PRIVATE VEHICLE WITH CHIEF COMPLAINT OF BACK PAIN (LOWER) AND RIGHT/LEFT ABDOMINAL/SIDE PAIN. PT WAS ALERT, ORIENTED X 4 AND WHEELED TO ROOM 8. PT WAS SEEN THE May FOR THESE ISSUES. WAS GIVEN PAIN MEDICAIONS AND IT IS NOT HELPING. SHE HAS BEEN USING X-LAX TO HELP WITH CONSTIPATION, BUT SHE DENIES WATING TO EAT BECAUSE IT HER PAIN WILL BECOME WORSE. PT DENIES ANY CHANGES TO PAST MEDICAL HISTORY SINCE HER LAST VISIT IN MAY. PT RATES PAIN AT A 10. PT WAS ASSISTED INTO THE BED WHERE HER VITAL SIGNS WERE COMPLETED AND REPORT WAS GIVEN TO PROVIDER. Nursing Sepsis Screen: No Definite Risk Source of Information: Patient Exam Limitations: No Limitations History of Present Illness Date Seen by Provider: June 29, 2020 Time Seen by Provider: 17:30 Initial Comments This is a 79 yo female who presented to the ER with complaints of right lower back and side pain that has progressed to the left side. States that she has history of chronic low back pain for which she takes Hydrocodone. States she was seen on June 17 for same complaints and diagnosed with constipation. Was given prescription for stool softener, but states that she continues to have small hard stools. Reports occasional nausea without emesis. No fever, chills, cough, shortness of breath, nausea, vomiting. Allergies and Home Medications Allergies Coded Allergies: levofloxacin (Verified Allergy, Unknown, NAUSEA, 08/05/15) Home Medications Alprazolam 0.5 Mg Tablet, 0.5 MG PO TID PRN for ANXIETY, (Reported) Cefuroxime Axetil 250 Mg Tablet, 250 MG PO BID Prescribed by: SUSAN HILL on 06/29/202022 Cholecalciferol (Vitamin D3) 2,000 Unit Tablet, 2,000 UNIT PO DAILY, (Reported) Cyclobenzaprine HCl 10 Mg Tablet, 10 MG PO Q8H PRN for SPASMS Prescribed by: NURIS LOPEZ on 06/17/202231 Cyclobenzaprine HCl 10 Mg Tablet, 10 MG PO BID PRN for PAIN-BREAKTHROUGH Prescribed by: SUSAN HILL on 06/29/202024 Dexlansoprazole 60 Mg Arnoldo., 60 MG PO DAILY Prescribed by: JOSE WHITNEY on 10/29/15 1205 Docusate Sodium 100 Mg Capsule, 100 MG PO BID Prescribed by: ADELINA KEEN on 08/11/15 0954 Hydrochlorothiazide 12.5 Mg Capsule, 12.5 MG PO DAILY, (Reported) Hydrocodone Bit/Acetaminophen 1 Each Tablet, 1 EACH PO Q6H PRN for PAIN Prescribed by: ADELINA KEEN on 08/11/15 0954 Ketorolac Tromethamine 10 Mg Tablet, 10 MG PO Q6H Prescribed by: NURIS LOPEZ on 06/17/20 2232 Loratadine 10 Mg Tablet, 10 MG PO DAILY PRN for ALLERGIES, (Reported) Losartan Potassium 50 Mg Tablet, 50 MG PO DAILY, (Reported) Methylprednisolone 4 Mg Tab.ds.pk, 4 MG PO UD PER DOSE PACK INSTRUCTIONS Prescribed by: JACQUES COWAN on 06/15/20 1245 Ondansetron HCl 4 Mg Tab, 4 MG PO Q6H PRN for NAUSEA/VOMITING, (Reported) Oxycodone HCl/Acetaminophen 1 Each Tablet, 1-2 EACH PO Q6H Prescribed by: JOSE HWITNEY on 10/29/15 1205 Pantoprazole Sodium 40 Mg Tablet.dr, 40 MG PO DAILY, (Reported) Promethazine HCl 25 Mg Tablet, 25 MG PO Q4H PRN for NAUSEA/VOMITING, (Reported) Sucralfate 1 Gm Tablet, 1 GM PO QID Prescribed by: JOSE WHITNEY on 10/29/15 1205 Patient Home Medication List Home Medication List Reviewed: Yes Review of Systems Constitutional: no symptoms reported EENTM: no symptoms reported Respiratory: no symptoms reported Cardiovascular: no symptoms reported Gastrointestinal: see HPI Genitourinary: no symptoms reported Musculoskeletal: see HPI Skin: no symptoms reported Psychiatric/Neurological: No Symptoms Reported Past Ttkgpyr-Mvknac-Irrkrn Hx Patient Social History Former Smoker, Quit: Feb 27, 1985 Recent Infectious Disease Expo: No Recent Hopitalizations: No Immunizations Up To Date Date of Pneumonia Vaccine: Feb 28, 2012 Seasonal Allergies Seasonal Allergies: No Past Medical History Surgeries: Yes (Rectocele/Bladder sling) Abdominal, Adenoidectomy, Appendectomy, Bladder Surgery, Gallbladder, 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, Oophorectomy, Rectal, Tonsillectomy Respiratory: Yes Chronic Bronchitis Cardiac: Yes Hypertension Neurological: No 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, Menopausal Genitourinary: No Gastrointestinal: Yes (DIVERTICULOSIS NOTED ON CT-NO HX OF ACUTE DIVERTICULITIS) Chronic Constipation, Diverticulosis Musculoskeletal: Yes (SPINAL STENOSIS, "PINCHED NERVE" IN BACK) Degenerate Disk Disease, Arthritis, Chronic Back Pain Endocrine: No (MORBID OBESITY) HEENT: No Cancer: No Psychosocial: Yes Depression Integumentary: Yes (SEBACEOUS CYST) Blood Disorders: No Family Medical History Arthritis 19 FATHER 19 MOTHER G8 BROTHER G8 SISTER Asthma 19 FATHER 19 MOTHER Cardiovascular disease G8 BROTHER Diabetes mellitus G8 BROTHER G8 SISTER Hypertension 19 FATHER 19 MOTHER G8 BROTHER G8 SISTER Myocardial infarction G8 BROTHER PAST SURGICAL HISTORY: -UMBILICAL SEBACEOUS CYST REMOVED -CHOLECYSTECTOMY -APPENDECTOMY -HYSTERECTOMY WITH RIGHT SALPINGO-OOPHORECTOMY -BLADDER SUSPENSION SURGERY--BLADDER SLING AND RECTOCOELE REPAIR PT TESTED + FOR COVID-19 ON 02/23/21--NO HOSPITALIZATION, OR SEVERE ILLNESS Physical Exam Vital Signs Vital Signs - First Documented 06/29/20 17:23 Temp 36.2 Pulse 109 Resp 24 B/P (MAP) 204/100 (134) Pulse Ox 96 O2 Delivery Room Air Capillary Refill : Less Than 3 Seconds Height, Weight, BMI Height: 5'7.00" Weight: 317lbs. 0.0oz. 143.759625dg; 50.00 BMI Method:Actual General Appearance: No Apparent Distress, WD/WN HEENT: PERRL/EOMI, Normal ENT Inspection, Pharynx Normal Neck: Normal Inspection, Supple Cardiovascular: Regular Rate, Rhythm, No Murmur Respiratory: Lungs Clear, Normal Breath Sounds, No Accessory Muscle Use, No Respiratory Distress Gastrointestinal: Normal Bowel Sounds, Soft; No Distended, No Rebound; Tenderness (generalized tenderness with palpation. ) Back: Normal Inspection, No CVA Tenderness Extremity: Normal Capillary Refill, Normal Inspection Neurologic/Psychiatric: Alert, Oriented x3, No Motor/Sensory Deficits, Normal Mood/Affect Skin: Normal Color, Warm/Dry Progress/Results/Core Measures Results/Orders Lab Results Laboratory Tests Test 06/29/20 17:50 06/29/20 18:50 Range/Units White Blood Count 8.1 4.3-11.0 10^3/uL Red Blood Count 4.62 3.80-5.11 10^6/uL Hemoglobin 14.3 11.5-16.0 g/dL Hematocrit 44 35-52 % Mean Corpuscular Volume 96 80-99 fL Mean Corpuscular Hemoglobin 31 25-34 pg Mean Corpuscular Hemoglobin Concent 32 32-36 g/dL Red Cell Distribution Width 13.4 10.0-14.5 % Platelet Count 287 130-400 10^3/uL Mean Platelet Volume 9.1 9.0-12.2 fL Immature Granulocyte % (Auto) 0 % Neutrophils (%) (Auto) 65 42-75 % Lymphocytes (%) (Auto) 19 12-44 % Monocytes (%) (Auto) 13 H 0-12 % Eosinophils (%) (Auto) 3 0-10 % Basophils (%) (Auto) 1 0-10 % Neutrophils # (Auto) 5.2 1.8-7.8 10^3/uL Lymphocytes # (Auto) 1.5 1.0-4.0 10^3/uL Monocytes # (Auto) 1.1 H 0.0-1.0 10^3/uL Eosinophils # (Auto) 0.2 0.0-0.3 10^3/uL Basophils # (Auto) 0.0 0.0-0.1 10^3/uL Immature Granulocyte # (Auto) 0.0 0.0-0.1 10^3/uL Sodium Level 136 135-145 MMOL/L Potassium Level 4.2 3.6-5.0 MMOL/L Chloride Level 99 98-107 MMOL/L Carbon Dioxide Level 26 21-32 MMOL/L Anion Gap 11 5-14 MMOL/L Blood Urea Nitrogen 8 7-18 MG/DL Creatinine 0.83 0.60-1.30 MG/DL Estimat Glomerular Filtration Rate > 60 BUN/Creatinine Ratio 10 Glucose Level 131 H 70-105 MG/DL Calcium Level 9.9 8.5-10.1 MG/DL Corrected Calcium 9.8 8.5-10.1 MG/DL Total Bilirubin 0.7 0.1-1.0 MG/DL Aspartate Amino Transf (AST/SGOT) 23 5-34 U/L Alanine Aminotransferase (ALT/SGPT) 30 0-55 U/L Alkaline Phosphatase 68 40-136 U/L Total Protein 7.5 6.4-8.2 GM/DL Albumin 4.1 3.2-4.5 GM/DL Urine Color YELLOW Urine Clarity CLEAR Urine pH 6.5 5-9 Urine Specific [place] <=1.005 1.016-1.022 Urine Protein NEGATIVE NEGATIVE Urine Glucose (UA) NEGATIVE NEGATIVE Urine Ketones NEGATIVE NEGATIVE Urine Nitrite NEGATIVE NEGATIVE Urine Bilirubin NEGATIVE NEGATIVE Urine Urobilinogen 0.2 < = 1.0 MG/DL Urine Leukocyte Esterase 2+ H NEGATIVE Urine RBC (Auto) TRACE-I NEGATIVE Urine RBC NONE /HPF Urine WBC 10-25 H /HPF Urine Squamous Epithelial Cells 0-2 /HPF Urine Crystals NONE /LPF Urine Bacteria FEW H /HPF Urine Casts NONE /LPF Urine Mucus NEGATIVE /LPF Urine Culture Indicated YES My Orders Orders - SUSAN HILL RELIGIOUS ACTIVITIES DIRECTOR Cbc With Automated Diff (06/29/20 17:39) Comprehensive Metabolic Panel (06/29/20 17:39) Urinalysis (06/29/20 17:39) Ed Iv/Invasive Line Start (06/29/20 17:39) Ketorolac Injection (Toradol Injection) (06/29/20 17:45) Ondansetron Injection (Zofran Injectio (06/29/20 17:45) Fentanyl Inj (Sublimaze Injection) (06/29/20 18:30) Acute Abd Series (06/29/20 18:29) Urine Culture (06/29/20 18:50) Ketorolac Injection (Toradol Injection) (06/29/20 19:45) Ceftriaxone For Iv Use (Rocephin For I (06/29/20 19:45) Orphenadrine Inj (Ed Only) (Norflex Inje (06/29/20 20:00) Medications Given in ED Vital Signs/I&O 06/29/20 06/29/20 17:23 20:40 Temp 36.2 Pulse 109 100 Resp 24 18 B/P (MAP) 204/100 (134) 153/80 Pulse Ox 96 95 O2 Delivery Room Air Room Air Blood Pressure Mean: 134 Diagnostic Imaging Diagonstic Imaging: Xray Plain Films/CT/US/NM/MRI: abdomen Comments NAME: DEBRA PRITCHARD [facility] REC#: [id number] PT STATUS: REG ER : 1940 PHYSICIAN: SUSAN HILL RELIGIOUS ACTIVITIES DIRECTOR ADMIT DATE: 06/29/20/ER Signed Date of Exam:05/03/21 ACUTE ABD SERIES INDICATION: Abdominal pain. COMPARISON: 06/17/2020 FINDINGS: There are few scattered foci of atelectasis within the lungs. No consolidation. No pleural effusion or pneumothorax. Normal cardiomediastinal silhouette. No free intraperitoneal air. Nonobstructive bowel gas pattern. Small volume of stool is present in the right hemicolon. Cholecystectomy clips are noted. IMPRESSION: 1. Nonobstructive bowel gas pattern and no free intraperitoneal air. 2. Small volume of stool within the right hemicolon. Dictated by: Dictated on workstation # [id number] Dict: 06/29/201916 Trans: 06/29/201926 [facility] [id number] Interpreted by: RUFINO STONE MD Electronically signed by: RUFINO STONE MD 06/29/201926 Reviewed: Reviewed by Me Departure Impression Primary Impression: UTI (urinary tract infection) Additional Impression: Lumbago Disposition: 01 HOME, SELF-CARE Condition: Improved Departure-Patient Inst. Decision time for Depature: 20:18 Referrals: NO,LOCAL PHYSICIAN (PCP) Primary Care Physician LEXII HOLLIS (Family) Primary Care Physician Patient Instructions: Urinary Tract Infection, Adult (DC) Add. Discharge Instructions: Plan: 1. Drink plenty of fluids. Take antibiotics as directed and complete full course. 2. Take Flexeril 10mg by mouth every 8 hours as needed for pain. 3. Follow up with your doctor next week. 4. Use Miralax twice a day as directed and reduce to daily to achieve soft stools. If diarrhea starts then skip to every other day. 5. Return to ER for any new or worsening symptoms. All discharge instructions reviewed with patient and/or family. Voiced understanding. Scripts Cyclobenzaprine HCl (Cyclobenzaprine HCl) 10 Mg Tablet 10 MG PO BID PRN for PAIN-BREAKTHROUGH, #10 TAB 0 Refills Prov: SUSAN HILL RELIGIOUS ACTIVITIES DIRECTOR 06/29/20 Cefuroxime Axetil (Cefuroxime) 250 Mg Tablet 250 MG PO BID for 10 Days, #20 TAB 0 Refills Prov: SUSAN HILL RELIGIOUS ACTIVITIES DIRECTOR 06/29/20 SUSAN HILL RELIGIOUS ACTIVITIES DIRECTOR June 29, 2020 17:42
[2020-06-29] MEDS ORDERED: KETOROLAC 30 MG/ML VIAL IVP ONE (17:45)
[2020-06-29] MEDS ORDERED: ONDANSETRON 4 MG/2 ML (SDV) Z0FRAN IVP ONE (17:45)
[2020-06-29 17:57] LABS: BASOPHILS % (AUTO) 1 % (0-10); EOSINOPHILS # (AUTO) 0.2 10^3/uL (0.0-0.3); EOSINOPHILS % (AUTO) 3 % (0-10); HEMATOCRIT 44 % (35-52); HEMOGLOBIN 14.3 g/dL (11.5-16.0); LYMPHOCYTES # (AUTO) 1.5 10^3/uL (1.0-4.0); LYMPHOCYTES % (AUTO) 19 % (12-44); MEAN CORPUSCULAR HEMOGLOBIN 31 pg (25-34); MEAN CORPUSCULAR HGB CONC 32 g/dL (32-36); MEAN CORPUSCULAR VOLUME 96 fL (80-99); MEAN PLATELET VOLUME 9.1 fL (9.0-12.2); MONOCYTES # (AUTO) 1.1 10^3/uL (0.0-1.0); MONOCYTES % (AUTO) 13 % (0-12); NEUTROPHILS # (AUTO) 5.2 10^3/uL (1.8-7.8); NEUTROPHILS % (AUTO) 65 % (42-75); PLATELET COUNT 287 10^3/uL (130-400); WHITE BLOOD COUNT 8.1 10^3/uL (4.3-11.0)
[2020-06-29 18:07] LABS: ALBUMIN 4.1 GM/DL (3.2-4.5); CHLORIDE 99 MMOL/L (98-107); POTASSIUM 4.2 MMOL/L (3.6-5.0); SODIUM 136 MMOL/L (135-145)
[2020-06-29 18:08] LABS: CALCIUM 9.9 MG/DL (8.5-10.1)
[2020-06-29 18:09] LABS: GLUCOSE 131 MG/DL (70-105); TOTAL PROTEIN 7.5 GM/DL (6.4-8.2)
[2020-06-29 18:10] LABS: CARBON DIOXIDE 26 MMOL/L (21-32)
[2020-06-29 18:11] LABS: BILIRUBIN,TOTAL 0.7 MG/DL (0.1-1.0)
[2020-06-29 18:13] LABS: ALKALINE PHOSPHATASE 68 U/L (40-136); CREATININE SERUM 0.83 MG/DL (0.60-1.30); GFR ESTIMATED > 60
[2020-06-29 18:14] LABS: BUN/CREATININE RATIO 10
[2020-06-29 18:16] LABS: ALANINE AMINOTRANSFERASE 30 U/L (0-55)
[2020-06-29] MEDS ORDERED: fentaNYL INJ 100 MCG/2 ML AMP IVP ONE (18:30)
[2020-06-29 18:59] LABS: BILIRUBIN,URINE NEGATIVE (NEGATIVE); CLARITY,URINE CLEAR; COLOR,URINE YELLOW; GLUCOSE, URINE (UA) NEGATIVE (NEGATIVE); KETONES,URINE NEGATIVE (NEGATIVE); LEUKOCYTE ESTERASE ,URINE 2+ (NEGATIVE); NITRITE,URINE NEGATIVE (NEGATIVE); PH,URINE 6.5 (5-9); PROTEIN,URINE NEGATIVE (NEGATIVE)
[2020-06-29 19:08] LABS: BACTERIA,URINE FEW /HPF; SQUAMOUS EPITHELIAL CELL,UR 0-2 /HPF
--- NOTE | 2020-06-29 19:20 | Diagnostic Imaging Report ---
INDICATION: Abdominal pain. COMPARISON: 06/17/2020 FINDINGS: There are few scattered foci of atelectasis within the lungs. No consolidation. No pleural effusion or pneumothorax. Normal cardiomediastinal silhouette. No free intraperitoneal air. Nonobstructive bowel gas pattern. Small volume of stool is present in the right hemicolon. Cholecystectomy clips are noted. IMPRESSION: 1. Nonobstructive bowel gas pattern and no free intraperitoneal air. 2. Small volume of stool within the right hemicolon. Dictated by: Dictated on workstation # [id number]
[2020-06-29] MEDS ORDERED: KETOROLAC 60 MG/2 ML VIAL IM ONE (19:45)
[2020-06-29] MEDS ORDERED: cefTRIAXone FOR IV USE 1,000 MG in WATER (STERILE) FOR INJECTION 10 ML IV ONE (19:45)
[2020-06-29] MEDS ORDERED: ORPHENADRINE 60 MG/2 ML (NORFLEX) AMP (ED ONLY) IM ONE (20:00)
[2020-06-29] MEDS ORDERED: CEFU250T80 PO (20:23)
[2020-06-29] MEDS ORDERED: CYCL10TA9 PO (20:25)
[2020-06-29 20:40] VITALS: BP 153/80
== END 2020-06-29 20:40 | disposition home or self-care (01) ==
LOC: EDUNIT# 17:11 → ER 17:13
DX: N39.0 Urinary tract infection, site not specified (principal); M54.5 Low back pain; I10 Essential (primary) hypertension; G89.29 Other chronic pain; M54.9 Dorsalgia, unspecified; E66.01 Morbid (severe) obesity due to excess calories; Z88.1 Allergy status to other antibiotic agents; Z87.891 Personal history of nicotine dependence; Z68.43 Body mass index [BMI] 50.0-59.9, adult; Z79.899 Other long term (current) drug therapy; Z79.891 Long term (current) use of opiate analgesic; Z79.52 Long term (current) use of systemic steroids
CPT/HCPCS: 36415; 74022; 80053; 81000; 85025; 87077; 87088; 87186

== ENCOUNTER 2021-11-19 17:50 | Inpatient (IN) | payer MEDICARE ==
[~2021-11-19] VITALS: Ht 167.7 cm; Wt 147.1 kg
[~2021-11-19 17:50] MED LIST changes: +CEFU250T80 PO; +CYCL10TA25 PO; -CYCL10TA9 PO
[2021-11-19] MEDS ORDERED: HYDROcodone/APAP 5 MG/325 MG (LORTAB) TAB PO ONE (18:30)
[2021-11-19] MEDS ORDERED: NS IV 1000 ML 1,000 ML IV SCH ×2 (18:30→19:30)
[2021-11-19] MEDS ORDERED: cefTRIAXone 1 GM PRE-MIX 50 ML IV ONE (18:30)
[2021-11-19] MEDS ORDERED: ONDANSETRON 4 MG/2 ML (SDV) Z0FRAN IVP ONE (18:30)
--- NOTE | 2021-11-19 18:30 | ED GU-Female ---
General Chief Complaint: - Reproductive Stated Complaint: UTI SYMPTOMS/KNOT ON LEFT SIDE ABD Nursing Triage Note: PT TO RM 5 VIA WC W C/O POSS UTI D/T BURNING SENSATION AND "LEAKY BLADDER" SX 11/14/21. PT ALSO C/O COUGH, A&OX4. Source: patient Exam Limitations: no limitations History of Present Illness Date Seen by Provider: Nov 19, 2021 Time Seen by Provider: 18:11 Initial Comments Patient to the ER by private conveyance with chief complaint of Burning and pain on urinating going on worse for the past week. She is having a little bit of nausea when her pain gets out of control. Last took half of 10 mg [place] at 1600, 2 and half hours ago. She feels her chronic spinal stenosis back pain is out of control because of urinary tract infection. She denies any fever but she did have some chills yesterday. She is not having any vomiting or diarrhea. Appetite is okay. No rash sweats. No history of abdominal surgeries. Allergies and Home Medications Allergies Coded Allergies: levofloxacin (Verified Allergy, Unknown, NAUSEA, 08/05/15) Patient Home Medication List Home Medication List Reviewed: Yes Alprazolam (Alprazolam) 0.5 Mg Tablet, 0.5 MG PO TID PRN for ANXIETY, (Reported) Entered as Reported by: YU PIZANO on 08/05/15 1353 Cefuroxime Axetil (Cefuroxime) 250 Mg Tablet, 250 MG PO BID Prescribed by: SUSAN HILL on 06/29/202022 Cholecalciferol (Vitamin D3) (Vitamin D) 2,000 Unit Tablet, 2,000 UNIT PO DAILY, (Reported) Entered as Reported by: YU PIZANO on 08/05/15 1353 Cyclobenzaprine HCl (Cyclobenzaprine HCl) 10 Mg Tablet, 10 MG PO Q8H PRN for SPASMS Prescribed by: NURIS LOPEZ on 06/17/202231 Cyclobenzaprine HCl (Cyclobenzaprine HCl) 10 Mg Tablet, 10 MG PO BID PRN for PAIN-BREAKTHROUGH Prescribed by: SUSAN HILL on 06/29/202024 Dexlansoprazole (Dexilant) 60 Mg Arnoldo.bp, 60 MG PO DAILY Prescribed by: JOSE WHITNEY on 10/29/15 1205 Docusate Sodium (Docusate Sodium) 100 Mg Capsule, 100 MG PO BID Prescribed by: ADELINA KEEN on 08/11/15 0954 Hydrochlorothiazide (Hydrochlorothiazide) 12.5 Mg Capsule, 12.5 MG PO DAILY, (Reported) Entered as Reported by: YU PIZANO on 08/05/15 1353 Hydrocodone Bit/Acetaminophen (HYDROcodone/APAP 10/325 TABLET) 1 Each Tablet, 1 EACH PO Q6H PRN for PAIN Prescribed by: ADELINA KEEN on 08/11/15 0954 Ketorolac Tromethamine (Ketorolac Tromethamine) 10 Mg Tablet, 10 MG PO Q6H Prescribed by: NURIS LOPEZ on 06/17/20 223 Loratadine (Loratadine) 10 Mg Tablet, 10 MG PO DAILY PRN for ALLERGIES, (Reported) Entered as Reported by: YU PIZANO on 08/05/15 1353 Losartan Potassium (Losartan Potassium) 50 Mg Tablet, 50 MG PO DAILY, (Reported) Entered as Reported by: YU PIZANO on 08/05/15 1353 Methylprednisolone (Methylprednisolone Dose Pack) 4 Mg Tab.ds.pk, 4 MG PO UD Prescribed by: JACQUES COWAN on 06/15/20 1245 Ondansetron HCl (Zofran) 4 Mg Tab, 4 MG PO Q6H PRN for NAUSEA/VOMITING, (Reported) Entered as Reported by: YU PIZANO on 08/05/15 1353 Oxycodone HCl/Acetaminophen (Percocet 7.5-325 mg Tablet) 1 Each Tablet, 1-2 EACH PO Q6H Prescribed by: JOSE WHITNEY on 10/29/15 1205 Pantoprazole Sodium (Pantoprazole Sodium) 40 Mg Tablet.dr, 40 MG PO DAILY, (Reported) Entered as Reported by: YU PIZANO on 08/05/15 1353 Promethazine HCl (Promethazine Tablet) 25 Mg Tablet, 25 MG PO Q4H PRN for NAUSEA/VOMITING, (Reported) Entered as Reported by: YU PIZANO on 08/05/15 1353 Sucralfate (Carafate) 1 Gm Tablet, 1 GM PO QID Prescribed by: JOSE WHITNEY on 10/29/15 1205 Review of Systems Review of Systems Constitutional: No chills, No diaphoresis EENTM: No ear discharge, No ear pain Respiratory: No cough, No short of breath Cardiovascular: No chest pain, No edema Gastrointestinal: abdominal pain (suprapubic); No constipation, No diarrhea; nausea; No vomiting Genitourinary: see HPI, burning; denies discharge Musculoskeletal: see HPI, back pain; No joint pain All Other Systemes Reviewed Negative Unless Noted: Yes Past Wzomhzi-Ppuxwc-Spckbb Hx Patient Social History Tobacco Use?: No Use of E-Cig and/or Vaping dev: No Substance use?: No Alcohol Use?: No Immunizations Up To Date First/Initial COVID19 Vaccinat: 2020 Second COVID19 Vaccination Stanley: NONE Third COVID19 Vaccination Date: NONE COVID19 Vaccine [employer]: [employer] Seasonal Allergies Seasonal Allergies: No Past Medical History Surgeries: Yes (Rectocele/Bladder sling) Abdominal, Adenoidectomy, Appendectomy, Bladder Surgery, Gallbladder, 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, Oophorectomy, Rectal, Tonsillectomy Respiratory: Yes Chronic Bronchitis Cardiac: Yes Hypertension Neurological: No Reproductive Disorders: No 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: 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, Menopausal Genitourinary: No Gastrointestinal: Yes (DIVERTICULOSIS NOTED ON CT-NO HX OF ACUTE DIVER TICULITIS) Chronic Constipation, Diverticulosis Musculoskeletal: Yes (SPINAL STENOSIS, "PINCHED NERVE" IN BACK) Degenerate Disk Disease, Arthritis, Chronic Back Pain Endocrine: No (MORBID OBESITY) HEENT: No Cancer: No Psychosocial: Yes Depression Integumentary: Yes (SEBACEOUS CYST) Blood Disorders: No Family Medical History Arthritis 19 FATHER 19 MOTHER G8 BROTHER G8 SISTER Asthma 19 FATHER 19 MOTHER Cardiovascular disease G8 BROTHER Diabetes mellitus G8 BROTHER G8 SISTER Hypertension 19 FATHER 19 MOTHER G8 BROTHER G8 SISTER Myocardial infarction G8 BROTHER PAST SURGICAL HISTORY: -UMBILICAL SEBACEOUS CYST REMOVED -CHOLECYSTECTOMY -APPENDECTOMY -HYSTERECTOMY WITH RIGHT SALPINGO-OOPHORECTOMY -BLADDER SUSPENSION SURGERY--BLADDER SLING AND RECTOCOELE REPAIR PT TESTED + FOR COVID-19 ON 02/23/21--NO HOSPITALIZATION, OR SEVERE ILLNESS Physical Exam Vital Signs Vital Signs - First Documented 11/19/21 18:10 Temp 36.8 Pulse 107 Resp 26 B/P (MAP) 205/95 (131) Pulse Ox 97 O2 Delivery Room Air Capillary Refill : Less Than 3 Seconds Height, Weight, BMI Height: 5'7.00" Weight: 317lbs. 0.0oz. 143.829912mp; 51.00 BMI Method:Actual General Appearance: no apparent distress, obese HEENT: PERRL/EOMI, pharynx normal Neck: non-tender, full range of motion, normal inspection Cardiovascular: normal peripheral pulses, regular rate, rhythm, tachycardia (108) Respiratory: lungs clear, normal breath sounds, no respiratory distress, no accessory muscle use Gastrointestinal: normal bowel sounds, non tender, soft Extremities: non-tender, normal capillary refill, pedal edema Neurologic/Psychiatric: alert, normal mood/affect, oriented x 3 Skin: normal color, warm/dry Focused Exam Sepsis Stage: Severe Sepsis Possible Source: Genitouriary Lactate Level 11/19/21 18:29: Lactic Acid Level 3.34*H Time of Focused Exam: 19:29 Respiratory: Lungs Clear, Normal Breath Sounds, No Accessory Muscle Use, No Respiratory Distress Cardiovascular: Regular Rate, Rhythm, No Edema, Normal Peripheral Pulses Capillary Refill: Less Than 3 Seconds Peripheral Pulses: 2+ Dorsalis Pedis (R), 2+ Left Dors-Pedis (L), 2+ Radial Pulses (R), 2+ Radial Pulses (L) Skin: normal color, warm/dry Lactic Acid Level Laboratory Tests Test 11/19/21 18:29 Lactic Acid Level 3.34 MMOL/L (0.50-2.00) *H Within 3hrs of presentation: Admin fluids, Admin 30ml/kg IBW due to BMI>30, Admin ABX, Blood cultures prior to ABX's, Focus exam, Lactate level Progress/Results/Core Measures Suspected Sepsis SIRS Temperature: Pulse: 107 Respiratory Rate: 26 Laboratory Tests 11/19/21 18:29: White Blood Count 12.7H Blood Pressure 205 /95 Mean: 131 11/19/21 18:29: Lactic Acid Level 3.34*H Laboratory Tests 11/19/21 18:29: Creatinine 0.95, INR Comment 1.1, Platelet Count 286, Total Bilirubin 0.8 Results/Orders Lab Results Laboratory Tests Test 11/19/21 18:29 11/19/21 19:10 Range/Units White Blood Count 12.7 H 4.3-11.0 10^3/uL Red Blood Count 4.78 3.80-5.11 10^6/uL Hemoglobin 14.7 11.5-16.0 g/dL Hematocrit 46 35-52 % Mean Corpuscular Volume 95 80-99 fL Mean Corpuscular Hemoglobin 31 25-34 pg Mean Corpuscular Hemoglobin Concent 32 32-36 g/dL Red Cell Distribution Width 13.5 10.0-14.5 % Platelet Count 286 130-400 10^3/uL Mean Platelet Volume 9.4 9.0-12.2 fL Immature Granulocyte % (Auto) 0 % Neutrophils (%) (Auto) 62 42-75 % Lymphocytes (%) (Auto) 23 12-44 % Monocytes (%) (Auto) 12 0-12 % Eosinophils (%) (Auto) 3 0-10 % Basophils (%) (Auto) 1 0-10 % Neutrophils # (Auto) 7.9 H 1.8-7.8 10^3/uL Lymphocytes # (Auto) 2.9 1.0-4.0 10^3/uL Monocytes # (Auto) 1.5 H 0.0-1.0 10^3/uL Eosinophils # (Auto) 0.3 0.0-0.3 10^3/uL Basophils # (Auto) 0.1 0.0-0.1 10^3/uL Immature Granulocyte # (Auto) 0.1 0.0-0.1 10^3/uL Prothrombin Time 14.4 12.2-14.7 SEC INR Comment 1.1 0.8-1.4 Activated Partial Thromboplast Time 32 24-35 SEC Sodium Level 141 135-145 MMOL/L Potassium Level 4.1 3.6-5.0 MMOL/L Chloride Level 101 98-107 MMOL/L Carbon Dioxide Level 22 21-32 MMOL/L Anion Gap 18 H 5-14 MMOL/L Blood Urea Nitrogen 15 7-18 MG/DL Creatinine 0.95 0.60-1.30 MG/DL Estimat Glomerular Filtration Rate 61 BUN/Creatinine Ratio 16 Glucose Level 111 H 70-105 MG/DL Lactic Acid Level 3.34 *H 0.50-2.00 MMOL/L Calcium Level 10.1 8.5-10.1 MG/DL Corrected Calcium 9.8 8.5-10.1 MG/DL Total Bilirubin 0.8 0.1-1.0 MG/DL Aspartate Amino Transf (AST/SGOT) 28 5-34 U/L Alanine Aminotransferase (ALT/SGPT) 39 0-55 U/L Alkaline Phosphatase 60 40-136 U/L B-Type Natriuretic Peptide 38.6 <100.0 PG/ML Total Protein 8.3 H 6.4-8.2 GM/DL Albumin 4.4 3.2-4.5 GM/DL Urine Color YELLOW Urine Clarity CLEAR Urine pH 5.5 5-9 Urine Specific [place] 1.010 L 1.016-1.022 Urine Protein NEGATIVE NEGATIVE Urine Glucose (UA) NEGATIVE NEGATIVE Urine Ketones NEGATIVE NEGATIVE Urine Nitrite POSITIVE H NEGATIVE Urine Bilirubin NEGATIVE NEGATIVE Urine Urobilinogen 0.2 < = 1.0 MG/DL Urine Leukocyte Esterase 1+ H NEGATIVE Urine RBC (Auto) NEGATIVE NEGATIVE Urine RBC NONE /HPF Urine WBC 10-25 H /HPF Urine Squamous Epithelial Cells NONE /HPF Urine Crystals NONE /LPF Urine Bacteria LARGE H /HPF Urine Casts NONE /LPF Urine Mucus NEGATIVE /LPF Urine Culture Indicated YES My Orders Orders - JACQUES COWAN Ua Culture If Indicated (11/19/21 17:53) Cbc With Automated Diff (11/19/21 18:24) Comprehensive Metabolic Panel (11/19/21 18:24) Blood Culture (11/19/21 18:24) Urine Culture (11/19/21 18:24) Protime With Inr (11/19/21 18:24) Partial Thromboplastin Time (11/19/21 18:24) Chest 1 View, Ap/Pa Only (11/19/21 18:24) Ed Iv/Invasive Line Start (11/19/21 18:24) Ed Iv/Invasive Line Start (11/19/21 18:24) Vital Signs Adult Sepsis Patie Q15M (11/19/21 18:24) O2 (11/19/21 18:24) Remove Rings In Anticipation O (11/19/21 18:24) Lactic Acid Analyzer (11/19/21 18:24) Ns Iv 1000 Ml (Sodium Chloride 0.9%) (11/19/21 18:30) Ceftriaxone 1 Gm Pre-Mix (Rocephin 1 Gm (11/19/21 18:30) Ondansetron Injection (Zofran Injectio (11/19/21 18:30) Hydrocodone/Apap 5/325 Tablet (Lortab 5 (11/19/21 18:30) Bnp Eleonora (11/19/21 18:30) Ed Iv/Invasive Line Start (11/19/21 19:16) Ns Iv 1000 Ml (Sodium Chloride 0.9%) (11/19/21 19:30) Medications Given in ED Current Medications Medications Dose Ordered Sig/Lavonne Route Start Time Stop Time Status Last Admin Dose Admin Acetaminophen/ Hydrocodone Bitart 1 ea ONCE ONCE PO 11/19/21 18:30 11/19/21 18:31 DC 11/19/21 18:47 1 EA Ceftriaxone Sodium/Dextrose 50 ml @ 100 mls/hr ONCE ONCE IV 11/19/21 18:30 11/19/21 18:59 DC 11/19/21 19:06 100 MLS/HR Ondansetron HCl 4 mg ONCE ONCE IVP 11/19/21 18:30 11/19/21 18:31 DC 11/19/21 18:47 4 MG Vital Signs/I&O 11/19/21 18:10 Temp 36.8 Pulse 107 Resp 26 B/P (MAP) 205/95 (131) Pulse Ox 97 O2 Delivery Room Air Capillary Refill : Less Than 3 Seconds Blood Pressure Mean: 131 Progress Note #1: Time: 18:29 Progress Note Tachycardia, suspicion for UTI. No history of kidney stones. She states that her pain is her chronic back pain. We will give her another hydrocodone for her pain, 4 of Zofran for her nausea, 1 L of fluids would be just under 20 mL/kg ba sed on ideal body weight of 136 pounds. She would get a gram of Rocephin after we get some blood, cultures and urinalysis with a lactate. Other than her tachycardia her vital signs are aseptic. Significantly elevated blood pressure: We will see what happens after some pain and nausea medications. Progress Note #2: Time: 19:17 Progress Note Because of the lactate and a marginal white count we went ahead and completed the septic work-up gave her another liter of fluids which is greater than 20 mL/kg based on her ideal body weight. We will discuss hospital stay. Diagnostic Imaging Diagonstic Imaging: Xray Plain Films/CT/US/NM/MRI: chest Comments [facility] [place], [place] NAME: DEBRA PRITCHARD [facility] REC#: [id number] PT STATUS: REG ER : 1940 PHYSICIAN: JACQUES COWAN MD ADMIT DATE: 11/19/21/ER Signed Date of Exam:11/19/21 CHEST 1 VIEW, AP/PA ONLY EXAMINATION: Chest 1 view. HISTORY: Sepsis. COMPARISON: 04/27/2016. FINDINGS: The lung volumes are normal. No focal consolidation is seen. No large pleural effusion or pneumothorax is seen. The cardiomediastinal silhouette is normal in size and contour. There is calcified aortic atherosclerotic plaque. No acute osseous abnormality is seen. IMPRESSION: No acute pleuroparenchymal process. Dictated by: Dictated on workstation # [id number] Dict: 11/19/211856 Trans: 11/19/211903 [facility] [id number] Interpreted by: LEDA LERNER DO Electronically signed by: LEDA LERNER DO 11/19/211903 Reviewed: Reviewed by Me Departure Communication (Admissions) Time/Spoke to Admitting Phy: 20:00 Discussed the case with Dr. Márquez who agrees to admit the patient to the floor. Impression Primary Impression: UTI (urinary tract infection) Qualified Codes: N30.00 - Acute cystitis without hematuria Additional Impression: Severe sepsis Disposition: ADMITTED INPATIENT Condition: Stable Admissions Decision to Admit Reason: Admit from ER (General) Decision to Admit/Date: Nov 19, 2021 Time/Decision to Admit Time: 19:18 Departure-Patient Inst. Referrals: LEXII HOLLIS (PCP/Family) Primary Care Physician JACQUES COWAN Nov 19, 2021 18:30
[2021-11-19 18:41] LABS: BASOPHILS # (AUTO) 0.1 10^3/uL (0.0-0.1); BASOPHILS % (AUTO) 1 % (0-10); EOSINOPHILS # (AUTO) 0.3 10^3/uL (0.0-0.3); EOSINOPHILS % (AUTO) 3 % (0-10); HEMATOCRIT 46 % (35-52); HEMOGLOBIN 14.7 g/dL (11.5-16.0); LYMPHOCYTES # (AUTO) 2.9 10^3/uL (1.0-4.0); LYMPHOCYTES % (AUTO) 23 % (12-44); MEAN CORPUSCULAR HEMOGLOBIN 31 pg (25-34); MEAN CORPUSCULAR HGB CONC 32 g/dL (32-36); MEAN CORPUSCULAR VOLUME 95 fL (80-99); MEAN PLATELET VOLUME 9.4 fL (9.0-12.2); MONOCYTES # (AUTO) 1.5 10^3/uL (0.0-1.0); MONOCYTES % (AUTO) 12 % (0-12); NEUTROPHILS # (AUTO) 7.9 10^3/uL (1.8-7.8); NEUTROPHILS % (AUTO) 62 % (42-75); PLATELET COUNT 286 10^3/uL (130-400); WHITE BLOOD COUNT 12.7 10^3/uL (4.3-11.0)
[2021-11-19 18:52] LABS: ALBUMIN 4.4 GM/DL (3.2-4.5); INR 1.1 (0.8-1.4); PROTHROMBIN TIME PATIENT 14.4 SEC (12.2-14.7)
[2021-11-19 18:53] LABS: POTASSIUM 4.1 MMOL/L (3.6-5.0)
[2021-11-19 18:54] LABS: CALCIUM 10.1 MG/DL (8.5-10.1)
[2021-11-19 18:55] LABS: TOTAL PROTEIN 8.3 GM/DL (6.4-8.2)
[2021-11-19 18:57] LABS: BILIRUBIN,TOTAL 0.8 MG/DL (0.1-1.0)
--- NOTE | 2021-11-19 18:58 | Diagnostic Imaging Report ---
EXAMINATION: Chest 1 view. HISTORY: Sepsis. COMPARISON: 04/27/2016. FINDINGS: The lung volumes are normal. No focal consolidation is seen. No large pleural effusion or pneumothorax is seen. The cardiomediastinal silhouette is normal in size and contour. There is calcified aortic atherosclerotic plaque. No acute osseous abnormality is seen. IMPRESSION: No acute pleuroparenchymal process. Dictated by: Dictated on workstation # [id number]
[2021-11-19 18:59] LABS: CREATININE SERUM 0.95 MG/DL (0.60-1.30)
[2021-11-19 19:20] LABS: BILIRUBIN,URINE NEGATIVE (NEGATIVE); CLARITY,URINE CLEAR; COLOR,URINE YELLOW; GLUCOSE, URINE (UA) NEGATIVE (NEGATIVE); KETONES,URINE NEGATIVE (NEGATIVE); LEUKOCYTE ESTERASE ,URINE 1+ (NEGATIVE); NITRITE,URINE POSITIVE (NEGATIVE); PH,URINE 5.5 (5-9); PROTEIN,URINE NEGATIVE (NEGATIVE)
[2021-11-19 19:36] LABS: BACTERIA,URINE LARGE /HPF
[2021-11-19 20:38] VITALS: BP 177/79
[2021-11-19] MEDS ORDERED: HYDROcodone/APAP 5 MG/325 MG (LORTAB) TAB PO PRN (21:45)
[2021-11-19] MEDS ORDERED: ACETAMINOPHEN 325 MG TABLET PO PRN (21:45)
[2021-11-19] MEDS ORDERED: ONDANSETRON 4 MG/2 ML (SDV) Z0FRAN IV PRN (21:45)
[2021-11-19] MEDS: LACTATED RINGERS 1,000 ML IV SCH (22:21)
[2021-11-19 23:43] VITALS: BP 141/65
[2021-11-20] MEDS ORDERED: HYDR-3820 PO (00:06)
[2021-11-20] MEDS ORDERED: LOSA100T57 PO (00:15)
[2021-11-20] MEDS ORDERED: SPIR25TA5 PO (00:15)
[2021-11-20] MEDS ORDERED: ONDA-105 PO (00:17)
[2021-11-20] MEDS ORDERED: ALPRAZolam 1 MG (XANAX) TAB ONE (00:20)
[2021-11-20] MEDS: ALPRAZolam 0.5 MG (XANAX) TAB PO PRN (00:22)
[2021-11-20] MEDS ORDERED: albuterol inhaler (00:30)
[2021-11-20] MEDS: LACTATED RINGERS 1,000 ML IV SCH ×2 (03:29→11:28)
[2021-11-20 03:30] VITALS: BP 126/59
[2021-11-20 05:35] LABS: BASOPHILS # (AUTO) 0.1 10^3/uL (0.0-0.1); BASOPHILS % (AUTO) 1 % (0-10); EOSINOPHILS # (AUTO) 0.3 10^3/uL (0.0-0.3); EOSINOPHILS % (AUTO) 3 % (0-10); HEMATOCRIT 37 % (35-52); HEMOGLOBIN 11.7 g/dL (11.5-16.0); LYMPHOCYTES # (AUTO) 2.2 10^3/uL (1.0-4.0); LYMPHOCYTES % (AUTO) 25 % (12-44); MEAN CORPUSCULAR HEMOGLOBIN 31 pg (25-34); MEAN CORPUSCULAR HGB CONC 32 g/dL (32-36); MEAN CORPUSCULAR VOLUME 97 fL (80-99); MEAN PLATELET VOLUME 9.6 fL (9.0-12.2); MONOCYTES % (AUTO) 12 % (0-12); NEUTROPHILS % (AUTO) 59 % (42-75); PLATELET COUNT 224 10^3/uL (130-400); WHITE BLOOD COUNT 8.5 10^3/uL (4.3-11.0)
[2021-11-20 05:47] LABS: CALCIUM 8.8 MG/DL (8.5-10.1); CREATININE SERUM 0.83 MG/DL (0.60-1.30); POTASSIUM 4.2 MMOL/L (3.6-5.0)
[2021-11-20 07:42] VITALS: BP 121/68
--- NOTE | 2021-11-20 08:57 | Physical Therapy Evaluation ---
PT Evaluation-General Medical Diagnosis Admission Date Nov 19, 2021 at 20:05 Medical Diagnosis: UTI/sepsis Onset Date: Nov 19, 2021 Therapy Diagnosis Therapy Diagnosis: debility/weakness Height/Weight Height (Feet): 5 Height (Inches): 7.00 Weight (Pounds): 317 Weight (Ounces): 0.0 Precautions Precautions/Isolations: Standard Precautions Referral Physician: Axel Reason for Referral: Evaluation/Treatment Medical History Pertinent Medical History: HTN History of Falls (past yr): Yes Prior Surgery (last 100 days): No Additional Medical History morbid obesity Current History ER secondary to burning with urination Reviewed History: Yes Social History Home: Single Level Current Living Status: Spouse PT Steps Into Home: 3 Prior Prior Level of Function SCALE: Activities may be completed with or without assistive devices. 8-Edeozeaawg-xiaupgr completes the activity by him/herself with no assistance from a helper. 5-Set-up or Clean-up Assistance-helper sets up or cleans up; patient completes activity. [place] assists only prior to or following the activity. 4-Supervision or Touching Assistance-helper provides verbal cues and/or touching/steadying and/or contact guard assistance as patient completes ac tivity. Assistance may be provided throughout the activity or intermittently. 3-Partial/Moderate Assistance-helper does LESS THAN HALF the effort. [place] lifts, holds or supports trunk or limbs, but provides less than half the effort. 2-Substantial/Maximal Assistance-helper does MORE THAN HALF the effort. [place] lifts or holds trunk or limbs and provides more than half the effort. 9-Gqropglxc-qulgha does ALL the effort. Patient does none of the effort to complete the activity. Or, the assistance of 2 or more helpers is required for the patient to complete the activity. If activity was not attempted, code reason: 7-Patient Refused. 9-Not Applicable-not attempted and the patient did not perform the activity before the current illness, exacerbation or injury. 10-Not Attempted due to Environmental Limitations-(lack of equipment, weather restraints, etc.). 88-Not Attempted due to Medical Conditions or Safety Concerns. Bed Mobility: 9 Transfers (B,C,W/C): 4 (sleeps in lift chair) Gait: 4 (10' only per patient) Indoor Mobility (Ambulation): Needed Some Help (short distances only 10') Prior Devices Use: Walker PT Evaluation-Current Subjective Patient reluctantly agrees to PT. Patient states, "I don't walk. I sleep in my recliner and have a potty chair right by it." Objective Patient Orientation: Normal For Age Attachments: IV ROM/Strength ROM Lower Extremities bilateral LE WFL Strength Lower Extremities 3+/5 grossly bilateral LE all planes Integumentary/Posture Bowel Incontinence: Yes Bladder Incontinence: Yes Posture trunk flexed posture due to patient does not perform upright activity at home PLOF Neuromuscular (Tone, Coordination, Reflexes) grossly intact Sensory Vision: Wears Glasses Hearing: Functional Transfers Lying to Sitting/Side of Bed(Q: 4 Sit to Stand (QC): 4 Chair/Nri-mt-Jmawp Xfer(QC): 4 Gait Mode of Locomotion: Both Anticipated Mode of Locomotion: Both Walk 10 feet (QC): 4 Walk 50 ft with 2 Turns(QC): 9 Walk 150 ft (QC): 9 Distance: 10' Gait Assistive Device: FWW Comments/Gait Description trunk flexed posture with shuffle gait sequence Balance Sitting Static: Normal Sitting Dynamic: Normal Standing Static: Fair Standing Dynamic: Fair Assessment/Needs Patient will be seen short term by skilled PT to address functional strength and mobility to improve current LOF. Rehab Potential: Guarded PT Practice Billing Associate Goals [facility] Goals PT Practice Billing Associate Goals Time Frame: Nov 27, 2021 Roll Left & Right (QC): 4 Sit to Lying (QC): 4 Lying-Sitting on Side/Bed(QC): 4 Sit to Stand (QC): 4 Chair/Dsf-ne-Ugwpc Xfer(QC): 4 Toilet Transfer (QC): 4 Walk 10 feet (QC): 4 PT Plan Problem List Problem List: Activity Tolerance, Functional Strength, Safety, Balance, Gait, Transfer, Bed Mobility Treatment/Plan Treatment Plan: Continue Plan of Care Treatment Plan: Bed Mobility, Education, Functional Activity Nicolle, Functional Strength, Gait, Safety, Therapeutic Exercise, Transfers Treatment Duration: Nov 27, 2021 Frequency: 6 times per week Estimated Hrs Per Day: .25 hour per day Patient and/or Family Agrees t: Yes Time/GCodes Time In: 746 Time Out: 800 Total Billed Treatment Time: 14 Total Billed Treatment 1 visit EVMod 14 min BEAN ELENA PT Nov 20, 2021 08:57
--- NOTE | 2021-11-20 11:01 | Occupational Therapy Eval ---
OT Evaluation-General/PLF Medical Diagnosis Admission Date Nov 19, 2021 at 20:05 Medical Diagnosis: UTI/sepsis Onset Date: Nov 19, 2021 Therapy Diagnosis Therapy Diagnosis: Weakness/decreased ADL skills Height/Weight Height (Feet): 5 Height (Inches): 7.00 Weight (Pounds): 317 Weight (Ounces): 0.0 Precautions Precautions/Isolations: Standard Precautions Weight Bear Status Weight Bearing Restriction: Weight Bearing/Tolerated Referral Physician: Axel Referral Reason: Activity Tolerance, Self Care, Evaluation/Treatment, Strengthening/ROM Medical History Pertinent Medical History: HTN Additional Medical History Bladder surgery, hysterectomy, spinal stenosis Current History Pt. began having significant back pain. More than usual. Came to ER. Found to have a UTI/sepsis. Reviewed History: Yes Social History Home: Single Level Current Living Status: Spouse Steps Into Home: 3 ADL-Prior Level of Function SCALE: Activities may be completed with or without assistive devices. 8-Fnykuielex-rmqjxkq completes the activity by him/herself with no assistance from a helper. 5-Set-up or Clean-up Assistance-helper sets up or cleans up; patient completes activity. [place] assists only prior to or following the activity. 4-Supervision or Touching Assistance-helper provides verbal cues and/or touching/steadying and/or contact guard assistance as patient completes activity. Assistance may be provided throughout the activity or intermittently. 3-Partial/Moderate Assistance-helper does LESS THAN HALF the effort. [place] lifts, holds or supports trunk or limbs, but provides less than half the effort. 2-Substantial/Maximal Assistance-helper does MORE THAN HALF the effort. [place] lifts or holds trunk or limbs and provides more than half the effort. 1-Kbfxzqasy-proeis does ALL the effort. Patient does none of the effort to complete the activity. Or, the assistance of 2 or more helpers is required for the patient to complete the activity. If activity was not attempted, code reason: 7-Patient Refused. 9-Not Applicable-not attempted and the patient did not perform the activity before the current illness, exacerbation or injury. 10-Not Attempted due to Environmental Limitations-(lack of equipment, weather restraints, etc.). 88-Not Attempted due to Medical Conditions or Safety Concerns. ADL PLOF Comments Pt. states that she sleeps in a recliner, and mainly stays there. She can't get into her bathroom so she uses a commode next to her chair. Her spouse assists her with toileting, bathing, and dressing. Pt. only sponge bathes. She states that she can walk approximately 5-10 feet with her walker, but "that's it." Self Care: Needed Some Help Functional Cognition: Independent DME/Equipment: Bedside [employer] DME/Equipment Comments Recliner OT Current Status Subjective Pt. reports 10/10 pain in back. She has had pain medication. Mental Status/Objective Patient Orientation: Person, Place, Time, Situation Current Upper Extremity ROM Pt. is only able to lift bilateral shoulders to approximately 90*. Upper Extremity Strength 3/5 throughout bilaterally ADL-Treatment Eating (QC): 6 Shower/Bathe Self (QC): 3 (Pt. able to bathe upper half of body. OT cleansed rear and front jaspal area in stance, as well as LE.) On/Off Footwear (QC): 2 Toileting Hygiene (QC): 1 Other Treatments Pt. agrees to sponge bathe up in chair. She is able to cleanse arms, chest. OT washes back and applies lotion. Pt. stands with walker with min assist, and OT cleanses rear and front jaspal area. Pt. had been incontinent of urine in chair. OT changed pad underneath. Pt. sat back down and OT doffed slipper socks, washed bilateral LE, and applied lotion to legs and feet. Donned fresh slipper socks. All needs met up in chair. Education OT Patient Education: Correct positioning, Modified ADL techniques, Progress toward Goal/Update tx plan, Purpose of tx/functional activities, Reviewed precautions, Rehab process, Transfer techniques Teaching Recipient: Patient Teaching Methods: Demonstration, Discussion Response to Teaching: Verbalize Understanding, Return Demonstration OT Optical Engineering Technician Goals Assisted Goals Time Frame: Dec 04, 2021 Eating (QC): 6 Oral Hygiene (QC): 5 Toileting Hygiene (QC): 3 (Min assist with modified techniques and equipment. Spouse assists her currently.) Shower/Bathe Self (QC): 4 (CGA in stance while pt. washes self with AE.) Upper Body Dressing (QC): 5 On/Off Footwear (QC): 5 (Set up to don socks with AE.) Additional Goals: 1-Demonstrate ADL Tasks, 2-Verbalize Understanding, 3- ImproveStrength/Nicolle 1=Demonstrate adherence to instructed precautions during ADL tasks. 2=Patient will verbalize/demonstrate understanding of assistive de vices/modifications for ADL. 3=Patient will improve strength/tolerance for activity to enable patient to perform ADL's. OT Education/Plan Problem List/Assessment Assessment: Decreased Activ Tolerance, Decreased UE Strength, Dependent Transfers, Impaired Bed Mobility, Impaired I ADL's, Impaired Self-Care Skills, Restricted Funct UE ROM Discharge Recommendations Plan/Recommendations: Continue POC Therapy Discharge Recommendati: Post Acute OT Equpiment Recommendations-D/C: Linux Systems Analyst, Sock Aide, Dressing Stick Comment Pt. would benefit from toilet tongs. Treatment Plan/Plan of Care Treatment,Training & Education: Yes Patient would benefit from OT for education, treatment and training to promote independence in ADL's, mobility, safety and/or upper extremity function for ADL's. Plan of Care: ADL Retraining, Functional Mobility, UE Funct Exercise/Act Treatment Duration: Dec 04, 2021 Frequency: 5 times per week Estimated Hrs Per Day: .25 hour per day Rehab Potential: Fair Time/GCodes Start Time: 10:10 Stop Time: 10:45 Total Time Billed (hr/min): 35 Billed Treatment Time 1, EVM x 15minutes, ADL x 20minutes ESSIE CHIRINOS OT Nov 20, 2021 11:01
--- NOTE | 2021-11-20 11:15 | History & Physical-Hospitalist ---
History of Present Illness HPI/Chief Complaint Patient is an 81-year-old female with past medical history of rectocele and uterine prolapse status post sling in 2016 and hypertension who presented to the emergency department due to dysuria. She states that she has had burning when she urinates for the past 10 days. She denies any fevers but was nauseated with this as well. She did have a urinary tract infection back in June and thought that this felt similar but actually worse than that. In the emergency department she was found to meet septic criteria with an elevated white count and lactic acid. She was admitted for IV antibiotics. This morning she reports feeling better and is up in the chair and is already eaten. Date Seen 11/20/21 Time Seen by a Provider: 10:15 Attending Physician Marychuy Pham PCP Admitting Physician: Curt Márquez MD Attending Physician: Curt Márquez MD Referring Physician Date of Admission Nov 19, 2021 at 20:05 Home Medications & Allergies Home Medications Reviewed patient Home Medication Reconciliation performed by pharmacy medication reconciliations agriculture technician and/or nursing. Patients Allergies have been reviewed. Allergies Allergies Coded Allergies levofloxacin (Verified Allergy, Unknown, NAUSEA, 08/05/15) Past Arggbhu-Rpkboe-[place] Hx Patient Social History Marrital Status: Employed/Student: retired Tobacco Use?: No Smoking Status: Never a Smoker Use of E-Cig and/or Vaping dev: No Substance use?: No Alcohol Use?: No Pt feels they are or have been: No Immunizations Up To Date First/Initial COVID19 Vaccinat: 2020 Second COVID19 Vaccination Stanley: NONE Date of Pneumonia Vaccine: Feb 28, 2012 Seasonal Allergies Seasonal Allergies: No Current Status status: No Advance Directives: No Communicates: Verbally Primary Language: Vietnamese Preferred Spoken Language: Vietnamese Is interpretation needed?: No Sensory deficits: Vision impairment Implanted or Applied Medical D: None Past Medical History Surgeries: Abdominal, Adenoidectomy, Appendectomy, Bladder Surgery, Gallbladder, 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, Oophorectomy, Rectal, Tonsillectomy Chronic Bronchitis 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, Menopausal Chronic Constipation, Diverticulosis Degenerate Disk Disease, Arthritis, Chronic Back Pain Depression Blood Disorders: No Family Medical History Arthritis 19 FATHER 19 MOTHER G8 BROTHER G8 SISTER Asthma 19 FATHER 19 MOTHER Cardiovascular disease G8 BROTHER Diabetes mellitus G8 BROTHER G8 SISTER Hypertension 19 FATHER 19 MOTHER G8 BROTHER G8 SISTER Myocardial infarction G8 BROTHER PAST SURGICAL HISTORY: -UMBILICAL SEBACEOUS CYST REMOVED -CHOLECYSTECTOMY -APPENDECTOMY -HYSTERECTOMY WITH RIGHT SALPINGO-OOPHORECTOMY -BLADDER SUSPENSION SURGERY--BLADDER SLING AND RECTOCOELE REPAIR PT TESTED + FOR COVID-19 ON 02/23/21--NO HOSPITALIZATION, OR SEVERE ILLNESS Review of Systems Constitutional: chills; No fever; malaise, weakness EENTM: no symptoms reported Respiratory: cough (chronic x 2 years since COVID); No short of breath Cardiovascular: No chest pain, No palpitations Genitourinary: dysuria, frequency, incontinence Musculoskeletal: no symptoms reported Skin: no symptoms reported Psychiatric/Neurological: No Symptoms Reported Physical Exam Physical Exam Vital Signs Vital Signs - First Documented 11/19/21 18:10 Temp 36.8 Pulse 107 Resp 26 B/P (MAP) 205/95 (131) Pulse Ox 97 O2 Delivery Room Air Capillary Refill : Less Than 3 Seconds Height, Weight, BMI Height: 5'7.00" Weight: 317lbs. 0.0oz. [id number]; 52.30 BMI Method:Actual General Appearance: No Apparent Distress, WD/WN HEENT: PERRL/EOMI, Moist Mucous Membranes; No Scleral Icterus (L), No Scleral Icterus (R) Neck: Normal Inspection, Supple Respiratory: Lungs Clear, No Accessory Muscle Use, No Respiratory Distress Cardiovascular: Regular Rate, Rhythm, No JVD, No Murmur Gastrointestinal: Normal Bowel Sounds, Non Tender, Soft Extremity: Normal Capillary Refill, No Calf Tenderness, Pedal Edema, Swelling (chronic) Neurologic/Psychiatric: Alert, Oriented x3, Normal Mood/Affect Skin: Normal Color, Warm/Dry Results Results/Procedures Labs Laboratory Tests 11/19/21 18:29 11/20/21 05:10 Patient resulted labs reviewed. Imaging: Reviewed Imaging Report Imaging [facility], [place] NAME: DEBRA PRITCHARD [facility] REC#: [id number] PT STATUS: REG ER : 1940 PHYSICIAN: JACQUES COWAN MD ADMIT DATE: 11/19/21/ER Signed Date of Exam:11/19/21 CHEST 1 VIEW, AP/PA ONLY EXAMINATION: Chest 1 view. HISTORY: Sepsis. COMPARISON: 04/27/2016. FINDINGS: The lung volumes are normal. No focal consolidation is seen. No large pleural effusion or pneumothorax is seen. The cardiomediastinal silhouette is normal in size and contour. There is calcified aortic atherosclerotic plaque. No acute osseous abnormality is seen. IMPRESSION: No acute pleuroparenchymal process. Dictated by: Dictated on workstation # [id number] Dict: 11/19/[id number] Trans: 11/19/211903 [facility] [id number] Interpreted by: LEDA LERNER DO Electronically signed by: LEDA LERNER DO 11/19/214 Assessment/Plan Admission Diagnosis Severe Sepsis Admission Status: Inpatient Order (span 2 midnights) Reason for Inpatient Admission: see below Assessment and Plan Severe Sepsis- POA UTI Stress incontinence Leukocytosis with tachycardia and LA of 3.34 on arrival Lactic acidosis resolved with IVF E coli on urine culture cultures in June reviewed and e coli grew then as well and sensitive to Rocephin HTN BP well controlled, hold homemeds Trend Age related debility- POA spinal stenosis PT/OT Continue home pain meds DVT ppx: Lovenox Diagnosis/Problems Diagnosis/Problems (1) Severe sepsis Status: Acute (2) Physical debility (3) UTI (urinary tract infection) Status: Acute CURT MÁRQUEZ MD Nov 20, 2021 11:15
[2021-11-20 11:27] VITALS: BP 121/73
[2021-11-20] MEDS: ENOXAPARIN 60 MG/0.6 ML (LOVENOX) SYR SC SCH (13:12)
[2021-11-20 15:11] VITALS: BP 126/73
[2021-11-20] MEDS: cefTRIAXone 1 GM IV (PRE-MIX) 50 ML IV SCH (18:36)
[2021-11-20 19:06] VITALS: BP 145/59
[2021-11-20] MEDS: RT-ALBUTEROL HFA 8.5 GM INHALER IH PRN (20:21)
[2021-11-20 23:50] VITALS: BP 148/65
[2021-11-21] MEDS: ENOXAPARIN 60 MG/0.6 ML (LOVENOX) SYR SC SCH ×2 (00:03→12:34)
[2021-11-21 03:50] VITALS: BP 138/63
[2021-11-21 05:24] LABS: HEMATOCRIT 37 % (35-52); HEMOGLOBIN 11.8 g/dL (11.5-16.0); MEAN CORPUSCULAR HEMOGLOBIN 31 pg (25-34); MEAN CORPUSCULAR HGB CONC 32 g/dL (32-36); MEAN CORPUSCULAR VOLUME 98 fL (80-99); MEAN PLATELET VOLUME 9.4 fL (9.0-12.2); PLATELET COUNT 215 10^3/uL (130-400); WHITE BLOOD COUNT 8.3 10^3/uL (4.3-11.0)
[2021-11-21 05:42] LABS: CREATININE SERUM 0.85 MG/DL (0.60-1.30); POTASSIUM 4.1 MMOL/L (3.6-5.0)
[2021-11-21] MEDS: ALPRAZolam 0.5 MG (XANAX) TAB PO PRN ×2 (07:56→20:51)
[2021-11-21 08:22] VITALS: BP 169/92
[2021-11-21] MEDS: RT-ALBUTEROL HFA 8.5 GM INHALER IH PRN ×2 (09:00→12:01)
--- NOTE | 2021-11-21 10:10 | Progress Note - Hospitalist ---
Subjective HPI/CC On Admission Date Seen by Provider: Nov 21, 2021 Patient is an 81-year-old female with past medical history of rectocele and uterine prolapse status post sling in 2016 and hypertension who presented to the emergency department due to dysuria. She states that she has had burning when she urinates for the past 10 days. She denies any fevers but was nauseated with this as well. She did have a urinary tract infection back in June and thought that this felt similar but actually worse than that. In the emergency department she was found to meet septic criteria with an elevated white count and lactic acid. She was admitted for IV antibiotics. This morning she reports feeling better and is up in the chair and is already eaten. Subjective/Events-last exam Pt reports doing better but very anxious. States this has been a long standing issue. Xanax has helped but she still has residual symptoms. She then fixates on old tests she has had done over 5 years ago and how she is uncertain what the results were. I pulled up her chart and reviewed her CT c/a/p from 2020, her EGD and colonoscopy results from 2015, and CT chest and abd from 2016. Focused Exam Lactate Level 11/19/21 18:29: Lactic Acid Level 3.34*H 11/19/21 20:51: Lactic Acid Level 2.62*H 11/20/21 00:52: Lactic Acid Level 1.12 Time of Focused Exam: 19:29 Objective Exam Vital Signs Vital Signs Date Time Temp Pulse Resp B/P (MAP) Pulse Ox O2 Delivery O2 Flow Rate FiO2 11/21/21 09:00 92 Room Air 0.00 11/21/21 08:22 36.1 78 20 169/92 (117) Capillary Refill : Less Than 3 Seconds General Appearance: No Apparent Distress, Anxious, Chronically ill, Obese Respiratory: Lungs Clear, No Respiratory Distress Cardiovascular: Regular Rate, Rhythm, No Murmur Gastrointestinal: Normal Bowel Sounds, Non Tender, Soft Extremity: Pedal Edema, Swelling Neurologic/Psychiatric: Alert, Oriented x3 Results/Procedures Lab Laboratory Tests 11/21/21 05:13 Patient resulted labs reviewed. Imaging: Reviewed Imaging Report Assessment/Plan Assessment and Plan Assess & Plan/Chief Complaint Severe Sepsis- POA UTI Stress incontinence Lactic acidosis resolved E coli on urine culture- sensitivities pending cultures in June reviewed and e coli grew then as well and sensitive to Rocephin Blood cultures negative HTN BP trending up, resume meds Trend Age related debility- POA spinal stenosis PT/OT Continue home pain meds DVT ppx: Lovenox Diagnosis/Problems Diagnosis/Problems (1) Severe sepsis Status: Acute (2) Physical debility (3) UTI (urinary tract infection) Status: Acute CURT HOUSE MD Nov 21, 2021 10:10
[2021-11-21] MEDS: SPIRONOLACTONE 25 MG (ALDACTONE) TAB PO SCH (10:24)
[2021-11-21] MEDS: LOSARTAN 100 MG (COZAAR) TABLET PO SCH (10:24)
[2021-11-21 12:40] VITALS: BP 144/76
[2021-11-21 16:16] VITALS: BP 136/66
[2021-11-21] MEDS: cefTRIAXone 1 GM IV (PRE-MIX) 50 ML IV SCH (18:33)
[2021-11-21 20:12] VITALS: BP 153/67
[2021-11-21 23:09] VITALS: BP 127/80
[2021-11-22] MEDS: ENOXAPARIN 60 MG/0.6 ML (LOVENOX) SYR SC SCH (00:06)
[2021-11-22] MEDS: RT-ALBUTEROL HFA 8.5 GM INHALER IH PRN (02:25)
[2021-11-22 08:04] VITALS: BP 126/72
[2021-11-22] MEDS: LOSARTAN 100 MG (COZAAR) TABLET PO SCH (08:11)
[2021-11-22] MEDS: SPIRONOLACTONE 25 MG (ALDACTONE) TAB PO SCH (08:12)
[2021-11-22] MEDS ORDERED: RT-ALBUINH INH (09:54)
--- NOTE | 2021-11-22 10:19 | Occupational Ther Daily Note ---
OT Current Status-Daily Note Subjective Pt sitting in recliner alert. Pt agrees to therapy. No c/o pain at this time. Mental Status/Objective Patient Orientation: Person, Place, Time, Situation Attachments: IV ADL-Treatment Therapy Code Descriptions/Definitions Functional [place] Measure: 0=Not Assessed/NA 4=Minimal Assistance 1=Total Assistance 5=Supervision or Setup 2=Maximal Assistance 6=Modified [place] 3=Moderate Assistance 7=Complete IndependenceSCALE: Activities may be completed with or without assistive devices. 1-Hnynjcalrw-euazady completes the activity by him/herself with no assistance from a helper. 5-Set-up or Clean-up Assistance-helper sets up or cleans up; patient completes activity. [place] assists only prior to or following the activity. 4-Supervision or Touching Assistance-helper provides verbal cues and/or touching/steadying and/or contact guard assistance as patient completes activity. Assistance may be provided throughout the activity or intermittently. 3-Partial/Moderate Assistance-helper does LESS THAN HALF the effort. [place] lifts, holds or supports trunk or limbs, but provides less than half the effort. 2-Substantial/Maximal Assistance-helper does MORE THAN HALF the effort. [place] lifts or holds trunk or limbs and provides more than half the effort. 3-Yzeguhvot-gaorap does ALL the effort. Patient does none of the effort to complete the activity. Or, the assistance of 2 or more helpers is required for the patient to complete the activity. If activity was not attempted, code reason: 7-Patient Refused. 9-Not Applicable-not attempted and the patient did not perform the activity before the current illness, exacerbation or injury. 10-Not Attempted due to Environmental Limitations-(lack of equipment, weather restraints, etc.). 88-Not Attempted due to Medical Conditions or Safety Concerns. Other Treatment Pt refusal to complete oral care/personal hygiene. Pt completed 3 B UE exercises against gravity, 2 sets 10 reps, to strengthen B UE for daily functional tasks. Pt required skilled instruction and modification for R shldr pain. Pt sitting in recliner call light/phone in reach. All needs met in room. Education OT Patient Education: Exercise program Teaching Recipient: Patient Teaching Methods: Demonstration, Discussion Response to Teaching: Verbalize Understanding, Return Demonstration OT Workers Compensation Adjuster Goals Workers Compensation Adjuster Goals Time Frame: Dec 04, 2021 Eating (QC): 6 Oral Hygiene (QC): 5 Toileting Hygiene (QC): 3 (Min assist with modified techniques and equipment. Spouse assists her currently.) Shower/Bathe Self (QC): 4 (CGA in stance while pt. washes self with AE.) Upper Body Dressing (QC): 5 On/Off Footwear (QC): 5 (Set up to don socks with AE.) Additional Goals: 1-Demonstrate ADL Tasks, 2-Verbalize Understanding, 3- ImproveStrength/Nicolle 1=Demonstrate adherence to instructed precautions during ADL tasks. 2=Patient will verbalize/demonstrate understanding of assistive devices/modifications for ADL. 3=Patient will improve strength/tolerance for activity to enable patient to perform ADL's. OT Education/Plan Problem List/Assessment Assessment: Decreased Activ Tolerance, Decreased UE Strength Discharge Recommendations Plan/Recommendations: Continue POC Treatment Plan/Plan of Care Patient would benefit from OT for education, treatment and training to promote independence in ADL's, mobility, safety and/or upper extremity function for ADL's. Plan of Care: ADL Retraining, Functional Mobility, UE Funct Exercise/Act Treatment Duration: Dec 04, 2021 Frequency: 5 times per week Estimated Hrs Per Day: .25 hour per day Rehab Potential: Fair Time/GCodes Start Time: 09:32 Stop Time: 09:43 Total Time Billed (hr/min): 11 Billed Treatment Time 1 visit EX 1 (11 min) BARBARA BUI Nov 22, 2021 10:19
--- NOTE | 2021-11-22 10:19 | Physical Therapy Progress Note ---
Therapy Progress Note Patient adamantly declined PT on this date. Patient stated she just wanted to sleep. RN notified. 1 ref BEAN ELENA PT Nov 22, 2021 10:19
[2021-11-22] MEDS ORDERED: SERT-413 PO (11:31)
[2021-11-22] MEDS ORDERED: CEPH500T PO (11:31)
[2021-11-22] MEDS ORDERED: ALPR0.5T PO (11:31)
[2021-11-22 13:25] VITALS: BP 126/72
== END 2021-11-22 14:20 | disposition home or self-care (01) | DRG 872 ==
LOC: EDUNIT# 17:50 → ER 17:53 → 4TH 20:05
PROVIDERS: ADMIT Family Medicine; ATTEND Internal Medicine
DX: A41.9 Sepsis, unspecified organism (principal); N39.0 Urinary tract infection, site not specified; E87.2 Acidosis; R65.20 Severe sepsis without septic shock; R32 Unspecified urinary incontinence; I10 Essential (primary) hypertension; R53.81 Other malaise; M48.00 Spinal stenosis, site unspecified; B96.20 Unspecified Escherichia coli [E. coli] as the cause of diseases classified elsewhere; K57.90 Diverticulosis of intestine, part unspecified, without perforation or abscess without bleeding; M19.90 Unspecified osteoarthritis, unspecified site; G89.29 Other chronic pain; M54.9 Dorsalgia, unspecified; F32.A Depression, unspecified
CPT/HCPCS: 36415; 71045; 80048; 80053; 81000; 83605; 83880; 85025; 85027; 85610; 85730; 87040; 87077; 87088; 87186; 94640; 94760; 96361; 96365; 96375

== ENCOUNTER 2021-12-23 19:24 | Inpatient (IN) | payer MEDICARE ==
[~2021-12-23] VITALS: Ht 170.2 cm; Wt 162.2 kg
[~2021-12-23 19:24] MED LIST changes: +ALBU8.5H6 INH; +ALPR0.5T PO; +CEPH500T PO; +HYDR-3820 PO; +LOSA100T57 PO; +ONDA-105 PO; +SERT-413 PO; +SPIR25TA5 PO; +albuterol inhaler
[2021-12-23 20:23] LABS: BASOPHILS # (AUTO) 0.1 10^3/uL (0.0-0.1); BASOPHILS % (AUTO) 1 % (0-10); EOSINOPHILS % (AUTO) 0 % (0-10); HEMATOCRIT 41 % (35-52); HEMOGLOBIN 13.4 g/dL (11.5-16.0); LYMPHOCYTES % (AUTO) 11 % (12-44); MEAN CORPUSCULAR HEMOGLOBIN 31 pg (25-34); MEAN CORPUSCULAR HGB CONC 33 g/dL (32-36); MEAN CORPUSCULAR VOLUME 94 fL (80-99); MEAN PLATELET VOLUME 9.3 fL (9.0-12.2); MONOCYTES # (AUTO) 0.7 10^3/uL (0.0-1.0); MONOCYTES % (AUTO) 8 % (0-12); NEUTROPHILS # (AUTO) 7.5 10^3/uL (1.8-7.8); NEUTROPHILS % (AUTO) 80 % (42-75); PLATELET COUNT 283 10^3/uL (130-400); WHITE BLOOD COUNT 9.4 10^3/uL (4.3-11.0)
[2021-12-23 20:36] LABS: ALBUMIN 3.9 GM/DL (3.2-4.5); BILIRUBIN,TOTAL 0.7 MG/DL (0.1-1.0); CALCIUM 9.4 MG/DL (8.5-10.1); CREATININE SERUM 0.83 MG/DL (0.60-1.30); POTASSIUM 4.7 MMOL/L (3.6-5.0); TOTAL PROTEIN 7.7 GM/DL (6.4-8.2)
--- NOTE | 2021-12-23 20:50 | Diagnostic Imaging Report ---
INDICATION: Chest pain. COMPARISON: 11/19/2021. FINDINGS: Compared to the prior examination, lung volumes are diminished. Interstitial markings appear unchanged from prior exam. There is no new alveolar consolidation evident. There is no evidence to suggest a large effusion. There is no pneumothorax. Heart size appears stable. The central pulmonary vasculature appears appropriate. IMPRESSION: Diminished lung volumes compared to the prior examination. There is no new large effusion or evidence of airspace consolidation. Heart size is stable and central pulmonary vascularity appears appropriate. Dictated by: Dictated on workstation # [id number]
[2021-12-23 20:55] LABS: TSH (THYROID ANALYZER) 0.67 UIU/ML (0.35-4.94)
[2021-12-23] MEDS ORDERED: fentaNYL INJ 100 MCG/2 ML AMP IVP ONE (21:30)
[2021-12-23] MEDS ORDERED: RT-ALBUTEROL/IPRATROPIUM 3 ML (DUONEB) VIAL INH ONE (21:30)
[2021-12-23] MEDS ORDERED: ONDANSETRON 4 MG/2 ML (SDV) Z0FRAN IVP ONE (21:30)
--- NOTE | 2021-12-23 21:30 | ED General ---
General Chief Complaint: COVID19 Suspect/Confirmed Stated Complaint: NAUSEA,HEAD/NECK/SHOULDER PAIN Nursing Triage Note: c/o generalized fatigue/pain, worsened chronic cough x3 days. Source of Information: Patient, Old Records Exam Limitations: No Limitations History of Present Illness Date Seen by Provider: Dec 23, 2021 Time Seen by Provider: 19:55 Initial Comments This 81-year-old woman presents to the emergency room with multiple complaints including pain in the right neck radiating to the base of her head and into the shoulders, nausea without vomiting, right upper quadrant pain, fatigue, and cough for the past 2 or 3 days. She also complains of a left abdominal pain which is chronic. She has mobility extremely restricted by obesity and chronic back pain. She complains of excessive belching. She denies chest pain. She is wheezing and reports history of COPD for which she takes inhaled treatments. She is afebrile. She is quite hypertensive during assessment. Andie Hollis is her primary care provider. She has seen Dr. Viera in the remote past for cardiology work-up but has not had any testing done in years. Allergies and Home Medications Allergies Coded Allergies: levofloxacin (Verified Allergy, Unknown, NAUSEA, 08/05/15) Patient Home Medication List Home Medication List Reviewed: Yes Albuterol Sulfate (Proair Hfa) 1 Puff Puff, 1-2 PUFF INH Q4H PRN for SHORTNESS OF BREATH, (Reported) Entered as Reported by: DASHAWN EL on 11/22/21 0954 Alprazolam (Xanax) 0.5 Mg Tablet, 0.5 MG PO Q8H PRN for ANXIETY Prescribed by: AMBERLY BILLS on 11/22/21 1132 Cephalexin (Cephalexin) 500 Mg Tablet, 500 MG PO TID Prescribed by: AMBERLY BILLS on 11/22/21 1131 Hydrocodone/Acetaminophen (Hydrocodone-Acetamin 10-325 mg) 10 Mg-325 Mg Tablet, 1 TAB PO TID PRN for PAIN-MODERATE (5-7), (Reported) Entered as Reported by: HAI YANG on 11/20/21 0006 Losartan Potassium (Losartan Potassium) 100 Mg Tablet, 100 MG PO DAILY, (Reported) Entered as Reported by: HAI YANG on 11/20/21 0015 Ondansetron HCl (Ondansetron HCl) 4 Mg Tablet, 4 MG PO Q6H PRN for NAUSEA-1ST LINE, (Reported) Entered as Reported by: HAI YANG on 11/20/21 0017 Sertraline HCl (Sertraline HCl) 50 Mg Tablet, 50 MG PO DAILY Prescribed by: AMBERLY BILLS on 11/22/21 1131 Spironolactone (Spironolactone) 25 Mg Tablet, 25 MG PO DAILY, (Reported) Entered as Reported by: HAI YANG on 11/20/21 0015 Review of Systems Review of Systems Constitutional: see HPI EENTM: no symptoms reported Respiratory: see HPI Cardiovascular: see HPI, other Gastrointestinal: see HPI Genitourinary: no symptoms reported : No Musculoskeletal: see HPI Skin: no symptoms reported Psychiatric/Neurological: See HPI Hematologic/Lymphatic: No Symptoms Reported Immunological/Allergic: no symptoms reported Past Lcfkvug-Rugldc-Rgjhgf Hx Patient Social History Tobacco Use?: No Substance use?: No Alcohol Use?: No Pt feels they are or have been: No Immunizations Up To Date First/Initial COVID19 Vaccinat: 2020 Second COVID19 Vaccination Stanley: NONE Third COVID19 Vaccination Date: NONE Seasonal Allergies Seasonal Allergies: No Past Medical History Surgery/Hospitalization HX: chronic bronchitis, htn, anx, depression, Surgeries: Yes (Rectocele/Bladder sling) Abdominal, Adenoidectomy, Appendectomy, Bladder Surgery, Gallbladder, 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, Oophorectomy, Rectal, Tonsillectomy Respiratory: Yes Chronic Bronchitis, COPD Cardiac: Yes Chronic Edema/Swelling, Hypertension Neurological: No 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, Menopausal Genitourinary: No Gastrointestinal: Yes (chronic left upper abdominal pain) Chronic Constipation, Diverticulosis Musculoskeletal: Yes (SPINAL STENOSIS, "PINCHED NERVE" IN BACK) Degenerate Disk Disease, Arthritis, Chronic Back Pain Endocrine: No (MORBID OBESITY) HEENT: No Cancer: No Psychosocial: Yes Depression Integumentary: Yes (SEBACEOUS CYST) Blood Disorders: No Family Medical History Arthritis 19 FATHER 19 MOTHER G8 BROTHER G8 SISTER Asthma 19 FATHER 19 MOTHER Cardiovascular disease G8 BROTHER Diabetes mellitus G8 BROTHER G8 SISTER Hypertension 19 FATHER 19 MOTHER G8 BROTHER G8 SISTER Myocardial infarction G8 BROTHER PAST SURGICAL HISTORY: -UMBILICAL SEBACEOUS CYST REMOVED -CHOLECYSTECTOMY -APPENDECTOMY -HYSTERECTOMY WITH RIGHT SALPINGO-OOPHORECTOMY -BLADDER SUSPENSION SURGERY--BLADDER SLING AND RECTOCOELE REPAIR PT TESTED + FOR COVID-19 ON 02/23/21--NO HOSPITALIZATION, OR SEVERE ILLNESS Physical Exam Vital Signs Vital Signs - First Documented 12/23/21 19:32 Temp 36.3 Pulse 87 Resp 20 B/P (MAP) 208/80 (122) Pulse Ox 97 O2 Delivery Room Air Capillary Refill : Less Than 3 Seconds Height, Weight, BMI Height: 5'7.00" Weight: 317lbs. 0.0oz. [id number]; 53.00 BMI Method:Actual General Appearance: WD/WN, Mild Distress, Obese HEENT: PERRL/EOMI, Normal ENT Inspection Neck: Normal Inspection; No JVD; Other (Tense tender musculature on the right lateral neck) Respiratory: No Accessory Muscle Use, No Respiratory Distress; No Crackles; Wheezing Cardiovascular: Regular Rate, Rhythm, No Murmur, Other (Marked lower extremity edema bilaterally) Gastrointestinal: Normal Bowel Sounds, Soft, Tenderness (Mild in the right upper quadrant) Extremity: Swelling, Other (Marked tender firm edema of the lower extremities bilaterally) Neurologic/Psychiatric: Alert, Oriented x3, No Motor/Sensory Deficits, Normal Mood/Affect Skin: Normal Color, Warm/Dry Progress/Results/Core Measures Suspected Sepsis SIRS Temperature: Pulse: 87 Respiratory Rate: 20 Laboratory Tests 12/23/21 20:10: White Blood Count 9.4 Blood Pressure 208 /80 Mean: 122 Laboratory Tests 12/23/21 20:10: Creatinine 0.83, Platelet Count 283, Total Bilirubin 0.7 Results/Orders Lab Results Laboratory Tests Test 12/23/21 19:35 12/23/21 20:10 12/23/21 21:55 Range/Units Influenza Type A (RT-PCR) Not Detected Not Detecte Influenza Type B (RT-PCR) Not Detected Not Detecte SARS-CoV-2 RNA (RT-PCR) Not Detected Not Detecte White Blood Count 9.4 4.3-11.0 10^3/uL Red Blood Count 4.36 3.80-5.11 10^6/uL Hemoglobin 13.4 11.5-16.0 g/dL Hematocrit 41 35-52 % Mean Corpuscular Volume 94 80-99 fL Mean Corpuscular Hemoglobin 31 25-34 pg Mean Corpuscular Hemoglobin Concent 33 32-36 g/dL Red Cell Distribution Width 13.2 10.0-14.5 % Platelet Count 283 130-400 10^3/uL Mean Platelet Volume 9.3 9.0-12.2 fL Immature Granulocyte % (Auto) 1 % Neutrophils (%) (Auto) 80 H 42-75 % Lymphocytes (%) (Auto) 11 L 12-44 % Monocytes (%) (Auto) 8 0-12 % Eosinophils (%) (Auto) 0 0-10 % Basophils (%) (Auto) 1 0-10 % Neutrophils # (Auto) 7.5 1.8-7.8 10^3/uL Lymphocytes # (Auto) 1.0 1.0-4.0 10^3/uL Monocytes # (Auto) 0.7 0.0-1.0 10^3/uL Eosinophils # (Auto) 0.0 0.0-0.3 10^3/uL Basophils # (Auto) 0.1 0.0-0.1 10^3/uL Immature Granulocyte # (Auto) 0.1 0.0-0.1 10^3/uL Sodium Level 133 L 135-145 MMOL/L Potassium Level 4.7 3.6-5.0 MMOL/L Chloride Level 98 98-107 MMOL/L Carbon Dioxide Level 23 21-32 MMOL/L Anion Gap 12 5-14 MMOL/L Blood Urea Nitrogen 12 7-18 MG/DL Creatinine 0.83 0.60-1.30 MG/DL Estimat Glomerular Filtration Rate 71 BUN/Creatinine Ratio 14 Glucose Level 156 H 70-105 MG/DL Calcium Level 9.4 8.5-10.1 MG/DL Corrected Calcium 9.5 8.5-10.1 MG/DL Magnesium Level 2.0 1.6-2.4 MG/DL Total Bilirubin 0.7 0.1-1.0 MG/DL Aspartate Amino Transf (AST/SGOT) 25 5-34 U/L Alanine Aminotransferase (ALT/SGPT) 24 0-55 U/L Alkaline Phosphatase 60 40-136 U/L Myoglobin 98.6 H 10.0-92.0 NG/ML Troponin I 0.036 H 0.043 H <0.028 NG/ML C-Reactive Protein High Sensitivity 0.68 H 0.00-0.50 MG/DL B-Type Natriuretic Peptide 52.1 <100.0 PG/ML Total Protein 7.7 6.4-8.2 GM/DL Albumin 3.9 3.2-4.5 GM/DL TSH Baggs Testing 0.67 0.35-4.94 UIU/ML My Orders Orders - AAD SOLIS MD Covid 19 Inhouse Test (12/23/21 19:55) Influenza A And B By Pcr (12/23/21 19:55) Ed Iv/Invasive Line Start (12/23/21 19:59) Cbc With Automated Diff (12/23/21:59) Comprehensive Metabolic Panel (12/23/21:59) Hs C Reactive Protein (12/23/21:59) Ua Culture If Indicated (12/23/21:59) Thyroid Analyzer (12/23/21 20:00) Magnesium (12/23/21 20:00) Chest 1 View, Ap/Pa Only (12/23/21 20:00) Ekg Tracing (12/23/21 20:00) Myoglobin Serum (12/23/21 20:00) O2 (12/23/21 20:00) Monitor-Rhythm Ecg Trace Only (12/23/21 20:00) Lipid Panel (12/24/21 06:00) Bnp Eleonora (12/23/21 20:00) Troponin I Eleonora (12/23/21 20:00) Troponin I Eleonora (12/23/21 22:10) Ondansetron Injection (Zofran Injectio (12/23/21 21:30) Fentanyl Inj (Sublimaze Injection) (12/23/21 21:30) Albuterol/Ipra Inhalation Soln (Duoneb I (12/23/21 21:30) Svn Small Volume Nebulizer (12/23/21 21:26) Morphine Injection (Morphine Injection (12/23/21 21:50) Scopolamine Patch (Transderm-Scop Patch) (12/23/21 22:00) Labetalol Injection (Normodyne Injection (12/23/21 22:00) Nitroglycerin Ointment (Nitrobid Ointme (12/23/21 22:45) Aspirin Chewable Tablet (Baby Aspirin Ch (12/23/21 22:45) Alprazolam Tablet (Xanax Tablet) (12/23/21 23:30) Orphenadrine Inj (Ed Only) (Norflex Inje (12/23/21 23:30) Pantoprazole Injection (Protonix Injecti (12/23/21 23:30) Medications Given in ED Current Medications Medications Dose Ordered Sig/Lavonne Route Start Time Stop Time Status Last Admin Dose Admin Albuterol/ Ipratropium 3 ml ONCE ONCE INH 12/23/21 21:30 12/23/21 21:31 DC 12/23/21 21:33 3 ML Alprazolam 0.25 mg ONCE ONCE PO 12/23/21 23:30 12/23/21 23:31 DC 12/23/21 23:59 0.25 MG Aspirin 324 mg ONCE ONCE PO 12/23/21 22:45 12/23/21 22:46 DC 12/23/21 22:46 324 MG Fentanyl Citrate 50 mcg ONCE ONCE IVP 12/23/21 21:30 12/23/21 21:31 DC 12/23/21 21:33 50 MCG Labetalol HCl 20 mg ONCE ONCE IV 12/23/21 22:00 12/23/21 22:01 DC 12/23/21 21:57 20 MG Nitroglycerin 1 inch ONCE ONCE TOP 12/23/21 22:45 12/23/21 22:46 DC 12/23/21 22:46 1 INCH Ondansetron HCl 8 mg ONCE ONCE IVP 12/23/21 21:30 12/23/21 21:31 DC 12/23/21 21:33 8 MG Orphenadrine Citrate 30 mg ONCE ONCE IV 12/23/21 23:30 12/23/21 23:31 DC 12/23/21 23:59 30 MG Pantoprazole 40 mg ONCE ONCE IV 12/23/21 23:30 12/23/21 23:31 DC 12/23/21 23:59 40 MG Scopolamine 1.5 mg ONCE ONCE TD 12/23/21 22:00 12/23/21 22:01 DC 12/23/21 21:57 1.5 MG Vital Signs/I&O 12/23/21 19:32 Temp 36.3 Pulse 87 Resp 20 B/P (MAP) 208/80 (122) Pulse Ox 97 O2 Delivery Room Air Capillary Refill : Less Than 3 Seconds Blood Pressure Mean: 122 Progress Note : Progress Note Influenza and COVID swabs were negative. Patient was treated with Zofran and fentanyl for symptoms. She had persistent abdominal pain and nausea. She was further treated with morphine and scopolamine patch. We attempted CT scan after the fentanyl and again after the morphine. Patient could not tolerate moving to CT scanner and lying flat due to her chronic back pain. She was refusing to attempt even after the morphine. We further tried to obtain simply an upright abdominal x-ray. Patient could not get up for the x-ray. DuoNeb was administered for her wheezing. Patient was noted to have elevated troponin wh ich was trending up on a 2-hour repeat. She denied having any chest pain at any point during her ER stay. Protonix was administered to help with abdominal pain. Xanax was given for anxiety. Norflex was given for the muscle tension in her neck. Blood pressure was treated with labetalol followed by a Nitropatch. CODE STATUS was reviewed with the patient. She was uncertain how to respond and therefore default of full code was placed on bridging orders. ECG Initial ECG Impression Date: Dec 23, 2021 Initial ECG Impression Time: 20:10 Initial ECG Rate: 76 Initial ECG Rhythm: Normal Sinus Initial ECG Impression: Normal Comment Sinus rhythm with no ST elevation or depression. No abnormal intervals or axis deviation. Diagnostic Imaging Diagonstic Imaging: Xray Plain Films/CT/US/NM/MRI: chest Comments NAME: DEBRA PRITCHARD MED REC#: [id number] PT STATUS: REG ER : 1940 PHYSICIAN: ADA SOLIS MD ADMIT DATE: 12/23/21/ER Signed Date of Exam:12/23/21 CHEST 1 VIEW, AP/PA ONLY INDICATION: Chest pain. COMPARISON: 11/19/2021. FINDINGS: Compared to the prior examination, lung volumes are diminished. Interstitial markings appear unchanged from prior exam. There is no new alveolar consolidation evident. There is no evidence to suggest a large effusion. There is no pneumothorax. Heart size appears stable. The central pulmonary vasculature appears appropriate. IMPRESSION: Diminished lung volumes compared to the prior examination. There is no new large effusion or evidence of airspace consolidation. Heart size is stable and central pulmonary vascularity appears appropriate. Dictated by: Dictated on workstation # [id number] Dict: 12/23/[id number] Trans: 12/23/212147 [facility] [id number] Interpreted by: JASON RILEY MD Electronically signed by: JASON RILEY MD 12/23/212147 Departure Communication (Admissions) Time/Spoke to Admitting Phy: 23:25 Dr. Allison Time/Spoke to Consulting Phy: 23:00 Dr. Gallo Impression Primary Impression: Elevated troponin Additional Impressions: Right upper quadrant pain Nausea Uncontrolled hypertension COPD exacerbation Disposition: ADMITTED INPATIENT Condition: Improved Admissions Decision to Admit Reason: Admit from ER (General) Decision to Admit/Date: Dec 23, 2021 Time/Decision to Admit Time: 23:00 Departure-Patient Inst. Referrals: LEXII HOLLIS (PCP/Family) Primary Care Physician ADA SOLIS MD Dec 23, 2021 21:30
[2021-12-23] MEDS ORDERED: morphine INJ 10 MG/ML 1ML (SYR OR VIAL) IVP STA (21:50)
[2021-12-23] MEDS ORDERED: SCOPOLAMINE 1.5 MG (TRANSDERM-SCOP) PATCH TD ONE (22:00)
[2021-12-23] MEDS ORDERED: LABETALOL HCL 20 MG/4 ML VIAL IV ONE (22:00)
[2021-12-23] MEDS ORDERED: ASPIRIN 81 MG CHEW (CHILDREN'S ASA) PO ONE (22:45)
[2021-12-23] MEDS ORDERED: NITROGLYCERIN 2% OINT 1 GM UNIT DOSE PACKET TOP ONE (22:45)
[2021-12-23] MEDS ORDERED: PANTOPRAZOLE 40 MG (PROTONIX) VIAL IV ONE (23:30)
[2021-12-23] MEDS ORDERED: ALPRAZolam 0.25 MG (XANAX) TAB PO ONE (23:30)
[2021-12-23] MEDS ORDERED: ORPHENADRINE 60 MG/2 ML (NORFLEX) AMP (ED ONLY) IV ONE (23:30)
[2021-12-24] VITALS (7 sets, daily range): BP systolic 130–208; BP diastolic 54–80
[2021-12-24] MEDS: LACTATED RINGERS 1,000 ML IV SCH ×3 (00:45→18:28)
[2021-12-24] MEDS ORDERED: RT-ALBUTEROL/IPRATROPIUM 3 ML (DUONEB) VIAL INH PRN (01:45)
[2021-12-24 05:16] LABS: BASOPHILS # (AUTO) 0.1 10^3/uL (0.0-0.1); BASOPHILS % (AUTO) 1 % (0-10); EOSINOPHILS # (AUTO) 0.2 10^3/uL (0.0-0.3); EOSINOPHILS % (AUTO) 2 % (0-10); HEMATOCRIT 37 % (35-52); HEMOGLOBIN 12.3 g/dL (11.5-16.0); LYMPHOCYTES % (AUTO) 18 % (12-44); MEAN CORPUSCULAR HEMOGLOBIN 31 pg (25-34); MEAN CORPUSCULAR HGB CONC 33 g/dL (32-36); MEAN CORPUSCULAR VOLUME 94 fL (80-99); MEAN PLATELET VOLUME 9.1 fL (9.0-12.2); MONOCYTES # (AUTO) 1.5 10^3/uL (0.0-1.0); MONOCYTES % (AUTO) 13 % (0-12); NEUTROPHILS # (AUTO) 7.5 10^3/uL (1.8-7.8); NEUTROPHILS % (AUTO) 66 % (42-75); PLATELET COUNT 257 10^3/uL (130-400); WHITE BLOOD COUNT 11.3 10^3/uL (4.3-11.0)
[2021-12-24 05:28] LABS: POTASSIUM 4.3 MMOL/L (3.6-5.0)
[2021-12-24 05:29] LABS: CALCIUM 8.9 MG/DL (8.5-10.1); TRIGLYCERIDES 83 MG/DL (<150); VLDL CHOLESTEROL 17 MG/DL (5-40)
[2021-12-24 05:34] LABS: CHOLESTEROL 156 MG/DL (< 200); CREATININE SERUM 0.79 MG/DL (0.60-1.30)
[2021-12-24 05:35] LABS: HDL CHOLESTEROL 37 MG/DL (40-60)
[2021-12-24] MEDS: NITROGLYCERIN 2% OINT 1 GM UNIT DOSE PACKET TOP SCH ×3 (06:30→21:09)
[2021-12-24] MEDS ORDERED: FLU QUAD HIGH DOSE 240 MCG/0.7 ML 2022-23 (FLUZONE) IM ONE (07:15)
[2021-12-24] MEDS: PANTOPRAZOLE 40 MG (PROTONIX) VIAL IV SCH (08:11)
[2021-12-24] MEDS: ASPIRIN 81 MG CHEW (CHILDREN'S ASA) PO SCH (08:11)
[2021-12-24] MEDS: ALPRAZolam 0.25 MG (XANAX) TAB PO PRN (09:53)
[2021-12-24] MEDS: ONDANSETRON 4 MG/2 ML (SDV) Z0FRAN IV PRN ×2 (09:53→13:58)
--- NOTE | 2021-12-24 10:11 | Consultation-Cardiology ---
HPI-Cardiology Cardiology Consultation: Date of Consultation 12/24/21 Date of Admission 12/23/21 Attending Physician Marychuy Pham Admitting Physician Admitting Physician: Renetta Allison DO Attending Physician: Renetta Allison DO Consulting Physician JESSICA VIRK JR, MD HPI: Time Seen by a Provider: 09:45 Chief Complaint: REASON FOR CONSULTATION: Abnormal troponin and hypertensive urgency. I had the pleasure of seeing Carrol on the cardiac stepdown unit at [facility] in [place], [place] today. She has no known history of coronary artery disease although did see Dr. Viera from [facility] in the past but she is not sure why. She recalls having a stress test and possibly a cardiac catheterization within the past 10 years but believes both were unremarkable. She has not seen Dr. Viera in a number of years. Over the past couple of days she has been having nausea and right-sided abdominal pain. She denies any vomiting but states that she has never vomited in her life. She does have constipation from time to time but this has not been any worse than usual and she actually had a large bowel movement 1 or 2 days ago. She denies any fever or chills. She has chronic left lower quadrant pain due to a mass in her left lower quadrant and had seen Dr. Syed in the past who recommended exploratory surgery but she declined. That occurred around 2015. She has previously had her gallbladder and appendix removed by Dr. Syed around 2015. Because of the ongoing nausea, she presented to the emergency room on 12/23. During her evaluation, she was found to have marked hypertension and a borderline elevated troponin level and because of this, a cardiology consultation was requested. S he denies any chest discomfort. She has been having some pain in the right side of her posterior neck area. She has chronic dyspnea and uses an inhaler but does not recall ever being told she has any sort of pulmonary disease. She does not wear any oxygen at home. She states her breathing has been unchanged. She has had some ankle edema over the past days to weeks. She had taken spironolactone in the past for the edema but this caused hyperkalemia and the medication was discontinued. She does not recall ever taking any other sort of diuretic. She denies paroxysmal nocturnal dyspnea, orthopnea, palpitations, lightheadedness, or syncope. She lives with her in [place]. She reports that she has been taking all of her oral medications despite the nausea. Certain portions of this document may have been dictated utilizing voice recognition technology. Inherent to this technology, typographical and grammatical errors may exist. As much as I am diligent to identify and correct these mistakes, some errors may remain in the document. Review of Systems-Cardiology Review of Systems : No Other comments Review of 10 organ systems is as per the history of present illness, otherwise negative. KIT-[id number]-Qappof Hx Patient Social History Marrital Status: Smoking Status: Former Smoker Have you traveled recently?: No Alcohol Use?: No Pt feels they are or have been: No Immunizations Up To Date Date of Pneumonia Vaccine: Feb 28, 2012 Past Medical History PMH As described under Assessment. Family Medical History Family Medical History: The patient does not know of any family history of premature coronary artery disease in first-degree relatives. Family History: Arthritis 19 FATHER 19 MOTHER G8 BROTHER G8 SISTER Asthma 19 FATHER 19 MOTHER Cardiovascular disease G8 BROTHER Diabetes mellitus G8 BROTHER G8 SISTER Hypertension 19 FATHER 19 MOTHER G8 BROTHER G8 SISTER Myocardial infarction G8 BROTHER Allergies and Home Medications Allergies Coded Allergies: levofloxacin (Verified Allergy, Unknown, NAUSEA, 08/05/15) Patient Home Medication List Home Medication List Reviewed: Yes Albuterol Sulfate (Ventolin Hfa) 90 Mcg Hfa.aer.ad, 2 PUFF INH Q6H PRN for SHORTNESS OF BREATH, (Reported) Entered as Reported by: FLORENTINO PHELAN on 12/24/211249 Last Action: Reviewed Ergocalciferol (Vitamin D2) (Vitamin D2) 1,250 Mcg (06142 Unit) Capsule, 1,250 MCG PO MON, (Reported) Entered as Reported by: FLORENTINO PHELAN on 12/24/211249 Last Action: Reviewed Fluticasone Propionate (Fluticasone Propionate) 50 Mcg/Actuation Wilber.susp, 1-2 SPRAY NSEACH DAILY PRN for CONGESTION, (Reported) Entered as Reported by: FLORENTINO PHELAN on 12/24/211249 Last Action: Reviewed Hydrocodone/Acetaminophen (Hydrocodone-Acetamin 10-325 mg) 10 Mg-325 Mg Tablet, 1 TAB PO TID PRN for PAIN-MODERATE (5-7), (Reported) Entered as Reported by: HAI YANG on 11/20/21 0006 Last Action: Reviewed Losartan Potassium (Losartan Potassium) 100 Mg Tablet, 100 MG PO 1200, (Reported ) Entered as Reported by: HAI YANG on 11/20/2114 Last Action: Continued Ondansetron HCl (Ondansetron HCl) 4 Mg Tablet, 4 MG PO Q6H PRN for NAUSEA-1ST LINE, (Reported) Entered as Reported by: HAI YANG on 11/20/2116 Last Action: Reviewed Discontinued Medications Albuterol Sulfate (Proair Hfa) 1 Puff Puff, 1-2 PUFF INH Q4H PRN for SHORTNESS OF BREATH, (Reported) Discontinued Reason: No Longer Taking Entered as Reported by: DASHAWN EL on 11/22/21 0954 Last Action: Discontinued Alprazolam (Xanax) 0.5 Mg Tablet, 0.5 MG PO Q8H PRN for ANXIETY Discontinued Reason: No Longer Taking Prescribed by: AMBERLY BILLS on 11/22/21 113 Last Action: Discontinued Cephalexin (Cephalexin) 500 Mg Tablet, 500 MG PO TID Discontinued Reason: No Longer Taking Prescribed by: AMBERLY BILLS on 11/22/211130 Last Action: Discontinued Sertraline HCl (Sertraline HCl) 50 Mg Tablet, 50 MG PO DAILY Discontinued Reason: No Longer Taking Prescribed by: AMBERLY BILLS on 11/22/211130 Last Action: Discontinued Spironolactone (Spironolactone) 25 Mg Tablet, 25 MG PO DAILY, (Reported) Discontinued Reason: No Longer Taking Entered as Reported by: HAI YANG on 11/20/2114 Last Action: Discontinued Exam Vital Signs Vital Signs Date Time Temp Pulse Resp B/P (MAP) Pulse Ox O2 Delivery O2 Flow Rate FiO2 12/24/21 16:02 36.4 75 14 153/60 (91) 92 12/24/21 12:00 Room Air 12/24/21 01:12 21 Physical Exam General: Alert. No acute distress. Well nourished and appears stated age. She is morbidly obese. Eye: Extraocular movements are intact. Conjunctivae are clear. There are no xanthelasma. HENT: Normocephalic. Atraumatic. Carotid pulsations 2/2 without bruits. Neck: Jugular venous pressure does not appear elevated. No thyromegaly appreciated. Respiratory: Lungs are clear to auscultation. Respirations are non-labored. Breath sounds are equal. Symmetrical chest wall expansion. Cardiovascular: Normal rate. Regular rhythm. Distant S1/S2. No murmur. No gallop. Point of maximal impulse is not appear displaced. Good pulses equal in all extremities. 1-2+ bilateral pretibial edema without venous stasis changes. Gastrointestinal: Soft. Normal bowel sounds. Skin: Skin turgor is normal. There is no pallor. Musculoskeletal: No kyphosis or scoliosis appreciated. Neurologic: Alert and oriented to person, place, time. Cranial nerves 3-12 a ppear grossly intact. The patient has good motor tone strength in the upper and lower extremities bilaterally. Psychiatric: Cooperative. Appropriate mood & affect. Labs Laboratory Tests Test 12/23/21 19:35 12/23/21 20:10 12/23/21 21:55 12/24/21 05:10 Range/Units Influenza Type A (RT-PCR) Not Detected Not Detecte Influenza Type B (RT-PCR) Not Detected Not Detecte SARS-CoV-2 RNA (RT-PCR) Not Detected Not Detecte White Blood Count 9.4 11.3 H 4.3-11.0 10^3/uL Red Blood Count 4.36 3.97 3.80-5.11 10^6/uL Hemoglobin 13.4 12.3 11.5-16.0 g/dL Hematocrit 41 37 35-52 % Mean Corpuscular Volume 94 94 80-99 fL Mean Corpuscular Hemoglobin 31 31 25-34 pg Mean Corpuscular Hemoglobin Concent 33 33 32-36 g/dL Red Cell Distribution Width 13.2 13.2 10.0-14.5 % Platelet Count 283 257 130-400 10^3/uL Mean Platelet Volume 9.3 9.1 9.0-12.2 fL Immature Granulocyte % (Auto) 1 1 % Neutrophils (%) (Auto) 80 H 66 42-75 % Lymphocytes (%) (Auto) 11 L 18 12-44 % Monocytes (%) (Auto) 8 13 H 0-12 % Eosinophils (%) (Auto) 0 2 0-10 % Basophils (%) (Auto) 1 1 0-10 % Neutrophils # (Auto) 7.5 7.5 1.8-7.8 10^3/uL Lymphocytes # (Auto) 1.0 2.0 1.0-4.0 10^3/uL Monocytes # (Auto) 0.7 1.5 H 0.0-1.0 10^3/uL Eosinophils # (Auto) 0.0 0.2 0.0-0.3 10^3/uL Basophils # (Auto) 0.1 0.1 0.0-0.1 10^3/uL Immature Granulocyte # (Auto) 0.1 0.1 0.0-0.1 10^3/uL Sodium Level 133 L 135 135-145 MMOL/L Potassium Level 4.7 4.3 3.6-5.0 MMOL/L Chloride Level 98 103 98-107 MMOL/L Carbon Dioxide Level 23 24 21-32 MMOL/L Anion Gap 12 8 5-14 MMOL/L Blood Urea Nitrogen 12 11 7-18 MG/DL Creatinine 0.83 0.79 0.60-1.30 MG/DL Estimat Glomerular Filtration Rate 71 76 BUN/Creatinine Ratio 14 14 Glucose Level 156 H 112 H 70-105 MG/DL Calcium Level 9.4 8.9 8.5-10.1 MG/DL Corrected Calcium 9.5 8.5-10.1 MG/DL Magnesium Level 2.0 1.6-2.4 MG/DL Total Bilirubin 0.7 0.1-1.0 MG/DL Aspartate Amino Transf (AST/SGOT) 25 5-34 U/L Alanine Aminotransferase (ALT/SGPT) 24 0-55 U/L Alkaline Phosphatase 60 40-136 U/L Myoglobin 98.6 H 10.0-92.0 NG/ML Troponin I 0.036 H 0.043 H 0.057 H <0.028 NG/ML C-Reactive Protein High Sensitivity 0.68 H 0.00-0.50 MG/DL B-Type Natriuretic Peptide 52.1 <100.0 PG/ML Total Protein 7.7 6.4-8.2 GM/DL Albumin 3.9 3.2-4.5 GM/DL TSH [place] Testing 0.67 0.35-4.94 UIU/ML Triglycerides Level 83 <150 MG/DL Cholesterol Level 156 < 200 MG/DL LDL Cholesterol Direct 104 1-129 MG/DL VLDL Cholesterol 17 5-40 MG/DL HDL Cholesterol 37 L 40-60 MG/DL Radiology ECHOCARDIOGRAM (12/24/2021): 1. This is a technically difficult study due to poor image quality secondary to patient's body habitus. Intravenous contrast was administered to enhance image quality. 2. Left ventricle: The cavity size is normal. There is concentric hypertrophy. Systolic function is normal. The estimated ejection fraction is 55-60%. Regional wall motion abnormalities cannot be excluded due to poor endocardial definition. Doppler parameters are consistent with abnormal left ventricular relaxation (grade 1 diastolic dysfunction). 3. Right atrium: The right atrium is mildly dilated with an area of 19 cm. 4. Mitral valve: The annulus is mildly calcified. 5. Aortic valve: There is mild aortic valve sclerosis. 6. Inferior vena cava: The vessel is dilated. The respirophasic diameter changes are blunted (less than 50%). These findings are consistent with markedly elevated right atrial pressure (15 mmHg). 7. Pulmonary arteries: The estimated pulmonary artery systolic pressure is 50 mmHg assuming a right atrial pressure of 15 mmHg. ECG Impression ECG Comment Electrocardiogram from the emergency room on 12/23 showed sinus rhythm with low voltages, otherwise unremarkable tracing. Diagnosis/Problems Diagnosis/Problems (1) Hypertensive urgency Status: Acute Assessment & Plan: I recommend resuming her outpatient antihypertensive medication and titrate if needed. I reordered her home dose of losartan 50 mg daily. She did not get any today. I will order a dose for today. (2) Elevated troponin Status: Acute Assessment & Plan: The troponin levels were essentially flat. She is not having any symptoms concerning for angina. She does have shortness of breath but this is chronic and unchanged. She has no ischemic changes on her electrocardiogram. Her echocardiogram shows a normal ejection fraction. I suspect she may have had a very small type II non-ST elevation myocardial infarction due to supply/demand mismatch from the hypertensive urgency. At some point we may want to consider an ischemic evaluation but this could certainly be done as an outpatient unless her clinical course deteriorates. I recommend she start aspirin 81 mg daily. (3) Primary hypertension Assessment & Plan: As above, I have resumed her home dose of losartan and will give a dose now since she did not get any today. (4) Mixed hyperlipidemia Assessment & Plan: Her LDL level is minimally elevated. She could probably start with dietary changes and then reassess in 1-2 months. (5) Morbid obesity Status: Chronic Assessment & Plan: She needs to work on weight loss. She was counseled in this regard. JESSICA VIRK JR, MD Dec 24, 2021 10:11
[2021-12-24] MEDS: RT-ALBUTEROL/IPRATROPIUM 3 ML (DUONEB) VIAL INH SCH ×2 (10:27→20:30)
[2021-12-24] MEDS ORDERED: ERGO1250 PO (12:50)
[2021-12-24] MEDS ORDERED: FLUT16SP22 NSEACH (12:50)
[2021-12-24] MEDS ORDERED: ALBU18HF2 INH (12:50)
--- NOTE | 2021-12-24 13:16 | History & Physical-Hospitalist ---
[facility] Me[place] 12/24/21 1316: History of Present Illness HPI/Chief Complaint Patent is an 81 yo woman admitted to cardiac step-down after presenting to the ED for nausea, head/neck/shoulder pain as well as generalized fatigue and worsened chronic cough for the last 3 days. Initial labs showed an elevated troponin of 0.043. X-ray showed diminished lung volumes with no effusions or airway consolidation. Initial BP was 208/80 at 1932 on 12/23. Influenza and covid tests were both negative. She was administered nitroglycerin, labetalol, fentanyl, aspirin, morphine, albuteral/impratropium. Initial EKG report not available but EKG showed low QRS voltage in precordial leads without ST or T wave abnormalities noted. The patient has a history of chronic bronchitis, hypertension, anxiety, and depression. She states that she is feeling good this morning but is anxious about her condition. Says she feels sick to her stomach and that she feels bloated. She denies any vision changes, but indicates SOB, cough, right shoulder pain, diffuse abdominal pain, frequency and incontinence but states that her urinary symptoms are chronic. Source: patient, RN/MD, old records Exam Limitations: no limitations Date Seen 12/24/21 Time Seen by a Provider: 07:50 Attending Physician Marychuy Pham PCP Admitting Physician: Renetta Mcnally DO Attending Physician: Renetta Mcnally DO Referring Physician Date of Admission Dec 23, 2021 at 23:32 Home Medications & Allergies Home Medications Reviewed patient Home Medication Reconciliation performed by pharmacy medication reconciliations radio technician and/or nursing. Patients Allergies have been reviewed. Allergies Allergies Coded Allergies levofloxacin (Verified Allergy, Unknown, NAUSEA, 08/05/15) Past Smbijjx-Bjcqsf-Jlwbof Hx Patient Social History Marrital Status: Employed/Student: retired Tobacco Use?: No Smoking Status: Former Smoker Smokeless Tobacco Frequency: Never a User Use of E-Cig and/or Vaping dev: No Substance use?: No Alcohol Use?: No Pt feels they are or have been: No Immunizations Up To Date First/Initial COVID19 Vaccinat: 2020 Second COVID19 Vaccination Stanley: NONE Tetanus Booster (TDap): Unknown Date of Pneumonia Vaccine: Feb 28, 2012 Seasonal Allergies Seasonal Allergies: No Current Status status: No Advance Directives: No Communicates: Verbally Primary Language: Danish Preferred Spoken Language: Danish Is interpretation needed?: No Implanted or Applied Medical D: None Past Medical History Surgeries: Abdominal, Adenoidectomy, Appendectomy, Bladder Surgery, Gallbladder, 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, Oophorectomy, Rectal, Tonsillectomy Chronic Bronchitis, COPD Chronic Edema/Swelling, 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, Menopausal Chronic Constipation, Diverticulosis Degenerate Disk Disease, Arthritis, Chronic Back Pain Are Your Blood Sugars Over 250: No Anxiety, Depression Blood Disorders: No Family Medical History Arthritis 19 FATHER 19 MOTHER G8 BROTHER G8 SISTER Asthma 19 FATHER 19 MOTHER Cardiovascular disease G8 BROTHER Diabetes mellitus G8 BROTHER G8 SISTER Hypertension 19 FATHER 19 MOTHER G8 BROTHER G8 SISTER Myocardial infarction G8 BROTHER PAST SURGICAL HISTORY: -UMBILICAL SEBACEOUS CYST REMOVED -CHOLECYSTECTOMY -APPENDECTOMY -HYSTERECTOMY WITH RIGHT SALPINGO-OOPHORECTOMY -BLADDER SUSPENSION SURGERY--BLADDER SLING AND RECTOCOELE REPAIR PT TESTED + FOR COVID-19 ON 02/23/21--NO HOSPITALIZATION, OR SEVERE ILLNESS Review of Systems Constitutional: see HPI EENTM: no symptoms reported; No blurred vision, No double vision Respiratory: see HPI, cough, wheezing Cardiovascular: see HPI, edema Gastrointestinal: abdominal pain (Diffuse); No constipation, No diarrhea; na usea; No vomiting Genitourinary: frequency, incontinence Musculoskeletal: see HPI, joint pain (Pain in her right shoulder that travels up her neck) Skin: no symptoms reported Psychiatric/Neurological: See HPI, Anxiety, Headache All Other Systems Reviewed Negative Unless Noted: Yes Physical Exam Physical Exam Vital Signs Vital Signs - First Documented 12/23/21 12/24/21 19:32 01:12 Temp 36.3 Pulse 87 Resp 20 B/P (MAP) 208/80 (122) Pulse Ox 97 O2 Delivery Room Air FiO2 21 Capillary Refill : Less Than 3 Seconds Height, Weight, BMI Height: 5'7.00" Weight: 317lbs. 0.0oz. [id number]; 50.84 BMI Method:Actual General Appearance: No Apparent Distress, WD/WN, Anxious, Obese Neck: Normal Inspection, Non Tender, Supple; No Carotid Bruit, No JVD Respiratory: Chest Non Tender, Wheezing Cardiovascular: Regular Rate, Rhythm, No Gallop, No JVD, No Murmur, Normal Per ipheral Pulses Gastrointestinal: Normal Bowel Sounds, No Organomegaly, Distended (Minor distension), Tenderness Back: Normal Inspection, No Vertebral Tenderness Extremity: Normal Capillary Refill, Non Tender, No Calf Tenderness, Swelling (2+ pitting edema of shins bilaterally) Neurologic/Psychiatric: Alert, Oriented x3 Skin: Normal Color, Warm/Dry Results Results/Procedures Labs Laboratory Tests 12/23/21 20:10 12/24/21 05:10 Patient resulted labs reviewed. Imaging Date of Exam:12/23/21 CHEST 1 VIEW, AP/PA ONLY INDICATION: Chest pain. COMPARISON: 11/19/2021. FINDINGS: Compared to the prior examination, lung volumes are diminished. Interstitial markings appear unchanged from prior exam. There is no new alveolar consolidation evident. There is no evidence to suggest a large effusion. There is no pneumothorax. Heart size appears stable. The central pulmonary vasculature appears appropriate. IMPRESSION: Diminished lung volumes compared to the prior examination. There is no new large effusion or evidence of airspace consolidation. Heart size is stable and central pulmonary vascularity appears appropriate. Dictated by: Dictated on workstation # [id number] Dict: 12/23/[id number] Trans: 12/23/212147 [facility] [id number] Interpreted by: JASON RILEY MD Electronically signed by: JASON RILEY MD 12/23/212147 ECHOCARDIOGRAM (12/24/2021): 1. This is a technically difficult study due to poor image quality secondary to patient's body habitus. Intravenous contrast was administered to enhance image quality. 2. Left ventricle: The cavity size is normal. There is concentric hypertrophy. Systolic function is normal. The estimated ejection fraction is 55-60%. Regional wall motion abnormalities cannot be excluded due to poor endocardial definition. Doppler parameters are consistent with abnormal left ventricular relaxation (grade 1 diastolic dysfunction). 3. Right atrium: The right atrium is mildly dilated with an area of 19 cm. 4. Mitral valve: The annulus is mildly calcified. 5. Aortic valve: There is mild aortic valve sclerosis. 6. Inferior vena cava: The vessel is dilated. The respirophasic diameter changes are blunted (less than 50%). These findings are consistent with markedly elevated right atrial pressure (15 mmHg). 7. Pulmonary arteries: The estimated pulmonary artery systolic pressure is 50 mmHg assuming a right atrial pressure of 15 mmHg. -Justice Gallo JR, M.D. Meds Home Medication List Reviewed: Yes Albuterol Sulfate (Proair Hfa) 1 Puff Puff, 1-2 PUFF INH Q4H PRN for SHORTNESS OF BREATH, (Reported) Entered as Reported by: DASHAWN EL on 11/22/21 0954 Alprazolam (Xanax) 0.5 Mg Tablet, 0.5 MG PO Q8H PRN for ANXIETY Prescribed by: AMBERLY BILLS on 11/22/21 1132 Cephalexin (Cephalexin) 500 Mg Tablet, 500 MG PO TID Prescribed by: AMBERLY BILLS on 11/22/21 1131 Hydrocodone/Acetaminophen (Hydrocodone-Acetamin 10-325 mg) 10 Mg-325 Mg Tablet, 1 TAB PO TID PRN for PAIN-MODERATE (5-7), (Reported) Entered as Reported by: HAI YANG on 11/20/21 0006 Losartan Potassium (Losartan Potassium) 100 Mg Tablet, 100 MG PO DAILY, (Reported) Entered as Reported by: HAI YANG on 11/20/21 0015 Ondansetron HCl (Ondansetron HCl) 4 Mg Tablet, 4 MG PO Q6H PRN for NAUSEA-1ST LINE, (Reported) Entered as Reported by: HAI YANG on 11/20/21 001 Sertraline HCl (Sertraline HCl) 50 Mg Tablet, 50 MG PO DAILY Prescribed by: AMBERLY BILLS on 11/22/21 113 Spironolactone (Spironolactone) 25 Mg Tablet, 25 MG PO DAILY, (Reported) Entered as Reported by: HAI YANG on 11/20/21 0015 As well as all meds listed in medications list Assessment/Plan Admission Diagnosis Hypertensive urgency, Type II NSTEMI, COPD exacerbation Admission Status: Inpatient Order (span 2 midnights) Reason for Inpatient Admission: Patient admission needed to closely monitor laboratory values and vital signs. Close monitoring is required to assure proper treatment and patient safety throughout hospital course. Assessment and Plan Hypertensive urgency - blood pressure decreased from 208/80 at initial reading to 137/60 as of this morning's interview. It has since climbed back to 189/67. Continue medical management and monitor for labile readings and signs of end organ damage. Patient may need repeat hydralazine or labetalol for BP management. Type II NSTEMI - close symptom monitoring and conservative management. serial troponins may be needed if patient begins to show signs of acute cardiac damage. COPD exacerbation - albuterol/ipratropium and monitoring of patient respiratory signs. supplemental oxygen may be needed if saturation drops Diagnosis/Problems Diagnosis/Problems (1) Right sided abdominal pain Status: Acute (2) Nausea Status: Acute (3) Elevated troponin Status: Acute (4) COPD exacerbation Status: Acute (5) Uncontrolled hypertension Status: Acute (6) Morbid obesity Status: Chronic (7) Hypertensive urgency Status: Acute RENETTA MCNALLY DO 12/25/21 0527: History of Present Illness HPI/Chief Complaint Chief complaint: Abdominal pain with fatigue HPI: This is an 81-year-old female of Andie Pham who presented to the ER with vague complaints including chronic abdominal pain but was found to have elevated troponin. Dr. Gallo is consulted. She has had multiple tests to evaluate the abdominal pain and Dr. WHITNEY for exploratory but she did not want to go that direction. at the bedside. Reviewed meds and labs. Source: patient, RN/MD Exam Limitations: no limitations Past Hpkyjnp-Qhxrbx-Ukihyj Hx Patient Social History Marrital Status: Employed/Student: retired Family Medical History Arthritis 19 FATHER 19 MOTHER G8 BROTHER G8 SISTER Asthma 19 FATHER 19 MOTHER Cardiovascular disease G8 BROTHER Diabetes mellitus G8 BROTHER G8 SISTER Hypertension 19 FATHER 19 MOTHER G8 BROTHER G8 SISTER Myocardial infarction G8 BROTHER Review of Systems Constitutional: see HPI, dizziness, malaise, weakness EENTM: no symptoms reported Respiratory: dyspnea on exertion, short of breath Cardiovascular: no symptoms reported Gastrointestinal: no symptoms reported Genitourinary: no symptoms reported Skin: no symptoms reported Physical Exam Physical Exam General Appearance: No Apparent Distress, Anxious, Chronically ill, Obese Respiratory: Normal Breath Sounds, Decreased Breath Sounds, Wheezing Cardiovascular: Regular Rate, Rhythm Neurologic/Psychiatric: Alert, Oriented x3 Assessment/Plan Admission Diagnosis Assessment: Hypertensive urgency NSTEMI type II Exacerbation of COPD Morbid obesity Acute on chronic abdominal pain Wheezing Plan: Home meds Blood pressure management Monitor closely Admission Status: Inpatient Order (span 2 midnights) Reason for Inpatient Admission: Hypertensive urgency with NSTEMI Supervisory-Addendum Brief Verification & Attestation Participated in pt care: history, MDM, physical Personally performed: exam, history, MDM, supervision of care Care discussed with: Medical Student Procedures: n/a Results interpretation: Verified all documentation Verification and Attestation of Medical Student E/M Service A medical student performed and documented this service in my presence. I reviewed and verified all information documented by the medical student and made modifications to such information, when appropriate. I personally performed the physical exam and medical decision making. Renetta Mcnally, Dec 25, 2021,05:25 TATE PEARCE Dec 24, 2021 13:16 RENETTA MCNALLY DO Dec 25, 2021 05:27
--- NOTE | 2021-12-24 13:21 | Physical Therapy Progress Note ---
Therapy Progress Note Patient refused PT due to not feeling well. RN notified about visit. Will attempt tomorrow AM. 1 REF BEAN ELENA PT Dec 24, 2021 13:21
--- NOTE | 2021-12-24 13:44 | Occ Therapy Progress Note ---
Therapy Progress Note OT evaluation received and chart reviewed. OT evaluation attempted, but pt refused due to not feeling well. OT provided education on purpose/benefit of OT, but pt continued to decline services on this date. OT will attempt evaluation again next available date. 1, refusal RUFUS SHETH OT Dec 24, 2021 13:44
[2021-12-24] MEDS: morphine INJ 4 MG/ML 1 ML (VIAL/SYRINGE) IV PRN ×2 (13:58→18:26)
[2021-12-24] MEDS ORDERED: LOSARTAN 50 MG (COZAAR) TAB PO NR (16:30)
[2021-12-24] MEDS ORDERED: RT-ALBUTEROL SULF 2.5 MG/3 ML PRE-MIX VIAL INH PRN (17:15)
[2021-12-24] MEDS ORDERED: NON-FORMULARY MEDICATION 1 EA EA (Ondansetron HCl 4 MG) PO PRN (17:15)
[2021-12-24] MEDS ORDERED: ENOXAPARIN 40 MG/0.4 ML (LOVENOX) SYR SC SCH (17:30)
[2021-12-24] MEDS ORDERED: CALCIUM CARBONATE 500 MG (TUMS) TAB.CHEW PO PRN (17:30)
[2021-12-24] MEDS ORDERED: LOPERAMIDE 2 MG (IMODIUM) TABLET PO PRN (17:30)
[2021-12-24] MEDS ORDERED: LACTULOSE SYRUP 10GM/15ML (ENULOSE) 30ML UDC PO PRN (17:30)
[2021-12-24] MEDS ORDERED: BISACODYL 10 MG SUPP (DULCOLAX) PR PRN (17:30)
[2021-12-24] MEDS ORDERED: diphenhydrAMINE 25 MG TAB (BENADRYL) PO PRN (17:30)
[2021-12-24] MEDS ORDERED: ACETAMINOPHEN 325 MG TABLET PO PRN (17:30)
[2021-12-24] MEDS ORDERED: DOCUSATE SODIUM 100 MG (COLACE) CAP PO PRN (17:30)
[2021-12-24] MEDS: ENOXAPARIN 60 MG/0.6 ML (LOVENOX) SYR SC SCH (18:26)
[2021-12-24] MEDS: ONDANSETRON 4 MG (ZOFRAN) ORAL DISSOLVE TAB PO PRN (18:26)
[2021-12-24] MEDS: SENNA W/DOCUSATE (SENOKOT S) TABLET PO SCH (21:09)
[2021-12-24] MEDS: polyethylene glycoL POWDER 17 GM (MIRALAX) PACK PO SCH (21:09)
[2021-12-25] VITALS (10 sets, daily range): BP systolic 147–187; BP diastolic 66–85
[2021-12-25] MEDS: LACTATED RINGERS 1,000 ML IV SCH (00:15)
[2021-12-25 04:21] LABS: BASOPHILS # (AUTO) 0.1 10^3/uL (0.0-0.1); BASOPHILS % (AUTO) 1 % (0-10); EOSINOPHILS # (AUTO) 0.3 10^3/uL (0.0-0.3); EOSINOPHILS % (AUTO) 3 % (0-10); HEMATOCRIT 35 % (35-52); HEMOGLOBIN 11.3 g/dL (11.5-16.0); LYMPHOCYTES # (AUTO) 2.3 10^3/uL (1.0-4.0); LYMPHOCYTES % (AUTO) 28 % (12-44); MEAN CORPUSCULAR HEMOGLOBIN 31 pg (25-34); MEAN CORPUSCULAR HGB CONC 32 g/dL (32-36); MEAN CORPUSCULAR VOLUME 97 fL (80-99); MEAN PLATELET VOLUME 9.5 fL (9.0-12.2); MONOCYTES # (AUTO) 1.3 10^3/uL (0.0-1.0); MONOCYTES % (AUTO) 15 % (0-12); NEUTROPHILS # (AUTO) 4.5 10^3/uL (1.8-7.8); NEUTROPHILS % (AUTO) 54 % (42-75); PLATELET COUNT 233 10^3/uL (130-400); WHITE BLOOD COUNT 8.4 10^3/uL (4.3-11.0)
[2021-12-25 04:39] LABS: ALBUMIN 3.3 GM/DL (3.2-4.5); POTASSIUM 4.1 MMOL/L (3.6-5.0)
[2021-12-25 04:40] LABS: CALCIUM 8.7 MG/DL (8.5-10.1)
[2021-12-25 04:41] LABS: TOTAL PROTEIN 6.2 GM/DL (6.4-8.2)
[2021-12-25 04:43] LABS: BILIRUBIN,TOTAL 0.6 MG/DL (0.1-1.0)
[2021-12-25 04:45] LABS: CREATININE SERUM 0.94 MG/DL (0.60-1.30)
[2021-12-25] MEDS: NITROGLYCERIN 2% OINT 1 GM UNIT DOSE PACKET TOP SCH (06:41)
[2021-12-25] MEDS: ENOXAPARIN 60 MG/0.6 ML (LOVENOX) SYR SC SCH ×2 (06:42→18:02)
[2021-12-25 07:11] LABS: BILIRUBIN,URINE NEGATIVE (NEGATIVE); CLARITY,URINE SL CLOUDY; COLOR,URINE YELLOW; GLUCOSE, URINE (UA) NEGATIVE (NEGATIVE); KETONES,URINE NEGATIVE (NEGATIVE); LEUKOCYTE ESTERASE ,URINE 2+ (NEGATIVE); NITRITE,URINE POSITIVE (NEGATIVE); PROTEIN,URINE NEGATIVE (NEGATIVE)
[2021-12-25 07:21] LABS: RBC,URINE 0-2 /HPF
[2021-12-25 07:22] LABS: BACTERIA,URINE LARGE /HPF; WBC,URINE >100 /HPF
--- NOTE | 2021-12-25 08:01 | Progress Note - Hospitalist ---
Subjective HPI/CC On Admission Date Seen by Provider: Dec 25, 2021 Time Seen by Provider: 11:00 Chief complaint: Abdominal pain with fatigue HPI: This is an 81-year-old female of Andie Pham who presented to the ER with vague complaints including chronic abdominal pain but was found to have elevated troponin. Dr. Gallo is consulted. She has had multiple tests to evaluate the abdominal pain and Dr. WHITNYE for exploratory but she did not want to go that direction. at the bedside. Reviewed meds and labs. Subjective/Events-last exam Patient doing a little better Now up in chair with family at the bedside UTI noted after urine sample and placed on Rocephin after review previous urine culture Patient incontinent Had sepsis from UTI 1 month ago Monitor closely Nausea is an acute and chronic problem we will try Phenergan as she requested Review of Systems Pulmonary: Dyspnea Gastrointestinal: Nausea, Vomiting Objective Exam Vital Signs Vital Signs Date Time Temp Pulse Resp B/P (MAP) Pulse Ox O2 Delivery O2 Flow Rate FiO2 12/25/21 14:01 164/74 (104) 92 Room Air 12/25/21 12:53 84 12/25/21 12:10 25 12/25/21 12:00 36.6 12/25/21 04:00 2.00 12/24/21 01:12 21 Capillary Refill : Less Than 3 Seconds General Appearance: No Apparent Distress, WD/WN, Chronically ill Respiratory: Lungs Clear, Normal Breath Sounds Cardiovascular: Regular Rate, Rhythm Neurologic/Psychiatric: Alert, Oriented x3, No Motor/Sensory Deficits, Normal Mood/Affect Results/Procedures Lab Laboratory Tests 12/25/21 04:07 Patient resulted labs reviewed. Assessment/Plan Assessment and Plan Assess & Plan/Chief Complaint Assessment: Hypertensive urgency NSTEMI type II Exacerbation of COPD Morbid obesity Acute on chronic abdominal pain Wheezing UTI h/o Sepsis 1 month ago placed on Rocephin empirically after reviewed UCX Plan: Home meds Blood pressure management Monitor closely Antibiotics IV fluid Hep-Lock BRANDEE MCNALLY DO Dec 25, 2021 08:01
[2021-12-25] MEDS: polyethylene glycoL POWDER 17 GM (MIRALAX) PACK PO SCH ×2 (08:30→20:36)
[2021-12-25] MEDS: PANTOPRAZOLE 40 MG (PROTONIX) VIAL IV SCH (08:30)
[2021-12-25] MEDS: SENNA W/DOCUSATE (SENOKOT S) TABLET PO SCH ×2 (08:30→20:36)
[2021-12-25] MEDS: ASPIRIN 81 MG CHEW (CHILDREN'S ASA) PO SCH (08:30)
--- NOTE | 2021-12-25 09:32 | Physical Therapy Progress Note ---
Therapy Progress Note Pt sitting up in chair eating breakfast at this time. She reports that she is not feeling well, and just had to take medication which made her feel worse. Pt refusing PT evaluation at this time, despite education on benefits. Will follow up to initiate PT evaluation Monday. 1 visit, refusal ([id number]) NORIS MORENO PT Dec 25, 2021 09:32
[2021-12-25] MEDS: RT-ALBUTEROL/IPRATROPIUM 3 ML (DUONEB) VIAL INH SCH ×3 (10:11→21:30)
[2021-12-25] MEDS: ONDANSETRON 4 MG/2 ML (SDV) Z0FRAN IV PRN (10:12)
[2021-12-25] MEDS ORDERED: PROMETHAZINE INJ 25 MG/ML (PHENERGAN) AMP IM PRN (11:45)
[2021-12-25] MEDS ORDERED: guaiFENesin (MUCINEX) 600 MG TAB PO ONE (12:00)
--- NOTE | 2021-12-25 12:01 | Cardiology Progress Note ---
Progress Note-Cardiology Events since last exam Date Seen by Provider: Dec 25, 2021 Time Seen by Provider: 11:57 Events since last exam I am following her due to abnormal troponin level. Her breathing is getting easier but she feels congested and cannot raise sputum. She was using Mucinex at home prior to admission. Her peripheral edema has improved. She denies chest pain, palpitations, or syncope. Certain portions of this document may have been dictated utilizing voice recognition technology. Inherent to this technology, typographical and grammatical errors may exist. As much as I am diligent to identify and correct these mistakes, some errors may remain in the document. Vitals Last set of Vitals Signs Vital Signs 12/24/21 12/25/21 12/25/21 12/25/21 12/25/21 01:12 04:00 08:00 11:20 11:21 Temp 35.8 Pulse 71 Resp 15 B/P (MAP) 153/66 (95) Pulse Ox 99 O2 Delivery Room Air O2 Flow Rate 2.00 FiO2 21 Labs Labs Laboratory Tests 12/25/21 04:07 Exam Vital Signs Vital Signs Date Time Temp Pulse Resp B/P (MAP) Pulse Ox O2 Delivery O2 Flow Rate FiO2 12/25/21 11:21 35.8 71 99 12/25/21 11:20 Room Air 12/25/21 08:00 15 153/66 (95) 12/25/21 04:00 2.00 12/24/21 01:12 21 Physical Exam General: Alert. No acute distress. She is morbidly obese. Eye: No xanthelasma. HENT: Normocephalic. Neck: Jugular venous pressure does not appear elevated. Respiratory: Lungs have some scattered wheezes and decreased breath sounds at the bases bilaterally. Respirations are non-labored. Breath sounds are equal. Symmetrical chest wall expansion. Cardiovascular: Normal rate. Regular rhythm. Distant S1/S2. No murmur. No gallop. 1+ bilateral pretibial edema. Gastrointestinal: Soft. Normal bowel sounds. Skin: Warm. Dry. Neurologic: Alert and oriented to person, place, time. Cranial nerves 3-11 grossly intact. Psychiatric: Cooperative. Appropriate mood & affect. Labs Laboratory Tests Test 12/25/21 04:07 12/25/21 07:05 Range/Units White Blood Count 8.4 4.3-11.0 10^3/uL Red Blood Count 3.65 L 3.80-5.11 10^6/uL Hemoglobin 11.3 L 11.5-16.0 g/dL Hematocrit 35 35-52 % Mean Corpuscular Volume 97 80-99 fL Mean Corpuscular Hemoglobin 31 25-34 pg Mean Corpuscular Hemoglobin Concent 32 32-36 g/dL Red Cell Distribution Width 13.6 10.0-14.5 % Platelet Count 233 130-400 10^3/uL Mean Platelet Volume 9.5 9.0-12.2 fL Immature Granulocyte % (Auto) 0 % Neutrophils (%) (Auto) 54 42-75 % Lymphocytes (%) (Auto) 28 12-44 % Monocytes (%) (Auto) 15 H 0-12 % Eosinophils (%) (Auto) 3 0-10 % Basophils (%) (Auto) 1 0-10 % Neutrophils # (Auto) 4.5 1.8-7.8 10^3/uL Lymphocytes # (Auto) 2.3 1.0-4.0 10^3/uL Monocytes # (Auto) 1.3 H 0.0-1.0 10^3/uL Eosinophils # (Auto) 0.3 0.0-0.3 10^3/uL Basophils # (Auto) 0.1 0.0-0.1 10^3/uL Immature Granulocyte # (Auto) 0.0 0.0-0.1 10^3/uL Sodium Level 137 135-145 MMOL/L Potassium Level 4.1 3.6-5.0 MMOL/L Chloride Level 103 98-107 MMOL/L Carbon Dioxide Level 26 21-32 MMOL/L Anion Gap 8 5-14 MMOL/L Blood Urea Nitrogen 11 7-18 MG/DL Creatinine 0.94 0.60-1.30 MG/DL Estimat Glomerular Filtration Rate 61 BUN/Creatinine Ratio 12 Glucose Level 98 70-105 MG/DL Calcium Level 8.7 8.5-10.1 MG/DL Corrected Calcium 9.3 8.5-10.1 MG/DL Total Bilirubin 0.6 0.1-1.0 MG/DL Aspartate Amino Transf (AST/SGOT) 21 5-34 U/L Alanine Aminotransferase (ALT/SGPT) 18 0-55 U/L Alkaline Phosphatase 46 40-136 U/L Total Protein 6.2 L 6.4-8.2 GM/DL Albumin 3.3 3.2-4.5 GM/DL Urine Color YELLOW Urine Clarity SL CLOUDY Urine pH 6.0 5-9 Urine Specific Jamison 1.020 1.016-1.022 Urine Protein NEGATIVE NEGATIVE Urine Glucose (UA) NEGATIVE NEGATIVE Urine Ketones NEGATIVE NEGATIVE Urine Nitrite POSITIVE H NEGATIVE Urine Bilirubin NEGATIVE NEGATIVE Urine Urobilinogen 0.2 < = 1.0 MG/DL Urine Leukocyte Esterase 2+ H NEGATIVE Urine RBC (Auto) TRACE-I H NEGATIVE Urine RBC 0-2 /HPF Urine WBC >100 H /HPF Urine Squamous Epithelial Cells 5-10 /HPF Urine Crystals NONE /LPF Urine Bacteria LARGE H /HPF Urine Casts NONE /LPF Urine Mucus NEGATIVE /LPF Urine Culture Indicated YES Diagnosis/Problems Diagnosis/Problems (1) Hypertensive urgency Status: Acute Assessment & Plan: She is back on the losartan and the primary provider has increased the dose as of today, 12/25. (2) Elevated troponin Status: Acute Assessment & Plan: The troponin levels are essentially flat. She is not having any symptoms concerning for angina. She does have shortness of breath but this is chronic and actually improving. She has no ischemic changes on her electrocardiogram. Her echocardiogram from this admission shows a normal ejection fraction. I suspect she may have had a very small type II non-ST elevation myocardial infarction due to supply/demand mismatch from the hypertensive urgency. At some point we may want to consider an ischemic evaluation but this could certainly be done as an outpatient unless her clinical course deteriorates. I recommend she continue aspirin 81 mg daily which I started at the time of admission. (3) Primary hypertension Assessment & Plan: Continue losartan as above. (4) Mixed hyperlipidemia Assessment & Plan: Her LDL level is minimally elevated. She could probably start with dietary changes and then reassess in 1-2 months. (5) Morbid obesity Status: Chronic Assessment & Plan: She needs to work on weight loss. She has been counseled in this regard. JESSICA VIRK JR, MD Dec 25, 2021 12:01
[2021-12-25] MEDS: FLUTICASONE NASAL SPRAY (FLONASE) 16 GM BTL NS PRN (12:10)
[2021-12-25] MEDS: cefTRIAXone 1 GM PRE-MIX 50 ML IV SCH (12:10)
[2021-12-25] MEDS: LOSARTAN 100 MG (COZAAR) TABLET PO SCH (12:11)
[2021-12-25] MEDS: PROMETHAZINE 25 MG (PHENERGAN) TAB PO PRN (18:37)
[2021-12-25] MEDS: guaiFENesin (MUCINEX) 600 MG TAB PO SCH (20:36)
[2021-12-25] MEDS: ALPRAZolam 0.25 MG (XANAX) TAB PO PRN (23:02)
[2021-12-26] VITALS (9 sets, daily range): BP systolic 141–220; BP diastolic 70–109
[2021-12-26] MEDS: RT-ALBUTEROL/IPRATROPIUM 3 ML (DUONEB) VIAL INH SCH ×4 (03:02→21:17)
[2021-12-26 05:20] LABS: BASOPHILS # (AUTO) 0.1 10^3/uL (0.0-0.1); BASOPHILS % (AUTO) 1 % (0-10); EOSINOPHILS # (AUTO) 0.3 10^3/uL (0.0-0.3); EOSINOPHILS % (AUTO) 4 % (0-10); HEMATOCRIT 37 % (35-52); HEMOGLOBIN 11.8 g/dL (11.5-16.0); LYMPHOCYTES # (AUTO) 2.3 10^3/uL (1.0-4.0); LYMPHOCYTES % (AUTO) 28 % (12-44); MEAN CORPUSCULAR HEMOGLOBIN 31 pg (25-34); MEAN CORPUSCULAR HGB CONC 32 g/dL (32-36); MEAN CORPUSCULAR VOLUME 96 fL (80-99); MEAN PLATELET VOLUME 9.5 fL (9.0-12.2); MONOCYTES # (AUTO) 1.3 10^3/uL (0.0-1.0); MONOCYTES % (AUTO) 15 % (0-12); NEUTROPHILS # (AUTO) 4.4 10^3/uL (1.8-7.8); NEUTROPHILS % (AUTO) 53 % (42-75); PLATELET COUNT 241 10^3/uL (130-400); WHITE BLOOD COUNT 8.4 10^3/uL (4.3-11.0)
[2021-12-26 05:50] LABS: ALBUMIN 3.4 GM/DL (3.2-4.5); BILIRUBIN,TOTAL 0.4 MG/DL (0.1-1.0); POTASSIUM 3.9 MMOL/L (3.6-5.0); TOTAL PROTEIN 6.3 GM/DL (6.4-8.2)
--- NOTE | 2021-12-26 06:14 | Progress Note - Hospitalist ---
Subjective HPI/CC On Admission Date Seen by Provider: Dec 26, 2021 Time Seen by Provider: 11:30 Chief complaint: Abdominal pain with fatigue HPI: This is an 81-year-old female of Andie Pham who presented to the ER with vague complaints including chronic abdominal pain but was found to have elevated troponin. Dr. Gallo is consulted. She has had multiple tests to evaluate the abdominal pain and Dr. WHITNEY for exploratory but she did not want to go that direction. at the bedside. Reviewed meds and labs. Subjective/Events-last exam Patient doing about the same Wheezing a bit today checking ABG and chest x-ray Rocephin maintained for UTI No pain Untreated sleep apnea/obesity hypoventilation syndrome suspected Review of Systems General: Fatigue, Malaise Objective Exam Vital Signs Vital Signs Date Time Temp Pulse Resp B/P (MAP) Pulse Ox O2 Delivery O2 Flow Rate FiO2 12/26/21 12:38 84 12/26/21 12:00 36.7 19 168/91 (116) 92 Room Air 12/26/21 11:24 0.00 12/24/21 01:12 21 Capillary Refill : Less Than 3 Seconds General Appearance: No Apparent Distress, WD/WN, Chronically ill, Obese Respiratory: Decreased Breath Sounds, Wheezing Cardiovascular: Regular Rate, Rhythm Neurologic/Psychiatric: Alert, Oriented x3, No Motor/Sensory Deficits, Normal Mood/Affect Results/Procedures Lab Laboratory Tests 12/26/21 05:00 Patient resulted labs reviewed. Assessment/Plan Assessment and Plan Assess & Plan/Chief Complaint Assessment: Hypertensive urgency NSTEMI type II Exacerbation of COPD Morbid obesity Acute on chronic abdominal pain Wheezing UTI h/o Sepsis 1 month ago placed on Rocephin empirically after reviewed UCX Suspected KETAN/obesity hypoventilation syndrome with ABG revealing hypercapnia and hypoxia Plan: Home meds Blood pressure management Monitor closely Antibiotics IV fluid Hep-Lock BRANDEE Lopez DO Dec 26, 2021 06:14
[2021-12-26] MEDS: PROMETHAZINE 25 MG (PHENERGAN) TAB PO PRN ×2 (06:54→15:49)
[2021-12-26] MEDS: ENOXAPARIN 60 MG/0.6 ML (LOVENOX) SYR SC SCH ×2 (06:57→17:21)
[2021-12-26] MEDS: polyethylene glycoL POWDER 17 GM (MIRALAX) PACK PO SCH ×2 (09:09→20:25)
[2021-12-26] MEDS: PANTOPRAZOLE 40 MG (PROTONIX) VIAL IV SCH (09:10)
[2021-12-26] MEDS: SENNA W/DOCUSATE (SENOKOT S) TABLET PO SCH ×2 (09:10→20:24)
[2021-12-26] MEDS: ASPIRIN 81 MG CHEW (CHILDREN'S ASA) PO SCH (09:10)
[2021-12-26] MEDS: guaiFENesin (MUCINEX) 600 MG TAB PO SCH ×2 (09:10→20:25)
--- NOTE | 2021-12-26 11:54 | Cardiology Progress Note ---
Progress Note-Cardiology Events since last exam Date Seen by Provider: Dec 26, 2021 Time Seen by Provider: 11:53 Events since last exam I am following her due to abnormal troponin level. She remains on the cardiac stepdown unit. She still feels congested but cannot raise any sputum. Her breathing seems to be about the same. She denies chest pain, palpitations, or syncope. Her peripheral edema is improving but not resolved. Certain portions of this document may have been dictated utilizing voice recogn ition technology. Inherent to this technology, typographical and grammatical errors may exist. As much as I am diligent to identify and correct these mistakes, some errors may remain in the document. Vitals Last set of Vitals Signs Vital Signs 12/24/21 12/26/21 12/26/21 12/26/21 01:12 07:42 09:22 11:24 Temp 36.5 Pulse 76 Resp 16 B/P (MAP) 141/70 (93) Pulse Ox 94 O2 Delivery Room Air O2 Flow Rate 0.00 FiO2 21 Labs Labs Laboratory Tests 12/26/21 05:00 Exam Vital Signs Vital Signs Date Time Temp Pulse Resp B/P (MAP) Pulse Ox O2 Delivery O2 Flow Rate FiO2 12/26/21 11:24 94 Room Air 0.00 12/26/21 09:22 141/70 (93) 12/26/21 07:42 36.5 76 16 12/24/21 01:12 21 Physical Exam General: Alert. No acute distress. She is morbidly obese. Eye: No xanthelasma. HENT: Normocephalic. Neck: Jugular venous pressure does not appear elevated. Respiratory: Lungs have diffuse wheezes and decreased breath sounds at the bases bilaterally. Respirations are non-labored. Breath sounds are equal. Symmetrical chest wall expansion. Cardiovascular: Normal rate. Regular rhythm. Distant S1/S2. No murmur. No gallop. 1+ bilateral pretibial edema. Gastrointestinal: Soft. Normal bowel sounds. Skin: Warm. Dry. Neurologic: Alert and oriented to person, place, time. Cranial nerves 3-11 grossly intact. Psychiatric: Cooperative. Appropriate mood & affect. Labs Laboratory Tests Test 12/26/21 05:00 Range/Units White Blood Count 8.4 4.3-11.0 10^3/uL Red Blood Count 3.82 3.80-5.11 10^6/uL Hemoglobin 11.8 11.5-16.0 g/dL Hematocrit 37 35-52 % Mean Corpuscular Volume 96 80-99 fL Mean Corpuscular Hemoglobin 31 25-34 pg Mean Corpuscular Hemoglobin Concent 32 32-36 g/dL Red Cell Distribution Width 13.8 10.0-14.5 % Platelet Count 241 130-400 10^3/uL Mean Platelet Volume 9.5 9.0-12.2 fL Immature Granulocyte % (Auto) 0 % Neutrophils (%) (Auto) 53 42-75 % Lymphocytes (%) (Auto) 28 12-44 % Monocytes (%) (Auto) 15 H 0-12 % Eosinophils (%) (Auto) 4 0-10 % Basophils (%) (Auto) 1 0-10 % Neutrophils # (Auto) 4.4 1.8-7.8 10^3/uL Lymphocytes # (Auto) 2.3 1.0-4.0 10^3/uL Monocytes # (Auto) 1.3 H 0.0-1.0 10^3/uL Eosinophils # (Auto) 0.3 0.0-0.3 10^3/uL Basophils # (Auto) 0.1 0.0-0.1 10^3/uL Immature Granulocyte # (Auto) 0.0 0.0-0.1 10^3/uL Sodium Level 140 135-145 MMOL/L Potassium Level 3.9 3.6-5.0 MMOL/L Chloride Level 106 98-107 MMOL/L Carbon Dioxide Level 24 21-32 MMOL/L Anion Gap 10 5-14 MMOL/L Blood Urea Nitrogen 10 7-18 MG/DL Creatinine 1.00 0.60-1.30 MG/DL Estimat Glomerular Filtration Rate 57 BUN/Creatinine Ratio 10 Glucose Level 127 H 70-105 MG/DL Calcium Level 9.0 8.5-10.1 MG/DL Corrected Calcium 9.5 8.5-10.1 MG/DL Total Bilirubin 0.4 0.1-1.0 MG/DL Aspartate Amino Transf (AST/SGOT) 17 5-34 U/L Alanine Aminotransferase (ALT/SGPT) 20 0-55 U/L Alkaline Phosphatase 50 40-136 U/L Total Protein 6.3 L 6.4-8.2 GM/DL Albumin 3.4 3.2-4.5 GM/DL Diagnosis/Problems Diagnosis/Problems (1) Hypertensive urgency Status: Acute Assessment & Plan: She is back on the losartan and the primary provider increased the dose on 12/25. (2) Pulmonary hypertension Assessment & Plan: I suspect this may be related to undiagnosed sleep apnea and her morbid obesity. This will need to be followed longitudinally. She may benefit from home oxygen if she is not already using this. (3) Elevated troponin Status: Acute Assessment & Plan: The troponin levels are essentially flat. She is not having any symptoms concerning for angina. She does have shortness of breath but this is chronic and actually improving. She has no ischemic changes on her electrocardiogram. Her echocardiogram from this admission shows a normal ejection fraction. I suspect she may have had a very small type II non-ST elevation myocardial infarction due to supply/demand mismatch from the hy pertensive urgency. At some point we may want to consider an ischemic evaluation but this could certainly be done as an outpatient unless her clinical course deteriorates. I recommend she continue aspirin 81 mg daily which I started at the time of admission. (4) Primary hypertension Assessment & Plan: Continue losartan as above. Blood pressures have improved but still elevated at times. If she needs an additional antihypertensive agent, I would recommend a diuretic or low-dose beta-bhupendra. I would avoid amlodipine as this would likely cause worsening peripheral edema.. (5) Mixed hyperlipidemia Assessment & Plan: Her LDL level is minimally elevated. She could probably start with dietary changes and then reassess in 1-2 months. (6) Morbid obesity Status: Chronic Assessment & Plan: She needs to work on weight loss. She has been counseled in this regard. JESSICA VIRK JR, MD Dec 26, 2021 11:54
[2021-12-26] MEDS ORDERED: FUROSEMIDE 40 MG/4 ML INJ (LASIX) IVP ONE (12:15)
[2021-12-26] MEDS: LOSARTAN 100 MG (COZAAR) TABLET PO SCH (12:25)
[2021-12-26] MEDS: cefTRIAXone 1 GM PRE-MIX 50 ML IV SCH (12:25)
[2021-12-26] MEDS ORDERED: RT-ALBUTEROL/IPRATROPIUM 3 ML (DUONEB) VIAL INH PRN (13:00)
[2021-12-26 14:07] LABS: ABG BASE EXCESS 6.1 MMOL/L (-2.5-2.5); ABG OXYGEN SATURATION 96 % (94-100); ABG PCO2 50 MMHG (35-45); ABG PO2 67 MMHG (79-93); ABG TCO2 32.3 MMOL/L (21.0-31.0)
[2021-12-26 14:09] LABS: ALLENS TEST YES-POS; INSPIRED O2 2 LITERS; PATIENT TEMP 36.7; VENTILATOR NO
--- NOTE | 2021-12-26 14:29 | Diagnostic Imaging Report ---
INDICATION: Dyspnea COMPARISON: 12/23/2021. TECHNIQUE: Single radiograph of the chest dated 12/26/2021. FINDINGS: The cardiac silhouette is significantly enlarged. Mild central pulmonary vascular congestion. Improved aeration of the lungs. The lungs appear clear when accounting for patient body habitus. No significant pleural effusion. No pneumothorax. No acute osseous abnormality. IMPRESSION: Prominence of the cardiac silhouette and pulmonary vasculature without significant interstitial edema. These findings are likely accentuated by patient body habitus. Improved aeration of the lungs without focal pulmonary consolidation. Dictated by: Dictated on workstation # [id number]
[2021-12-26] MEDS: FLUTICASONE NASAL SPRAY (FLONASE) 16 GM BTL NS PRN (15:52)
[2021-12-26] MEDS: MICONAZOLE 2% POWDER (DESENEX AF) 90 GM TOP SCH (20:25)
[2021-12-26] MEDS: MELATONIN 3 MG TABLET PO PRN (20:25)
[2021-12-26] MEDS ORDERED: meTOprolol 5 MG/5 ML (LOPRESSOR) VIAL IV ONE ×2 (20:45→22:30)
[2021-12-26] MEDS ORDERED: meTOprolol 5 MG/5 ML (LOPRESSOR) VIAL ONE ×2 (20:52→22:33)
[2021-12-26] MEDS ORDERED: meTOprolol TARTRATE 50 MG (LOPRESSOR) TAB ONE (20:52)
[2021-12-26] MEDS: meTOprolol TARTRATE 50 MG (LOPRESSOR) TAB PO SCH (20:55)
[2021-12-26] MEDS: ALPRAZolam 0.25 MG (XANAX) TAB PO PRN (22:38)
[2021-12-27] VITALS (17 sets, daily range): BP systolic 109–198; BP diastolic 53–127
[2021-12-27] MEDS: RT-ALBUTEROL/IPRATROPIUM 3 ML (DUONEB) VIAL INH SCH ×4 (02:12→21:50)
[2021-12-27] MEDS: meTOprolol 5 MG/5 ML (LOPRESSOR) VIAL IV PRN ×3 (02:42→10:55)
--- NOTE | 2021-12-27 05:46 | Progress Note - Hospitalist ---
Subjective HPI/CC On Admission Date Seen by Provider: Dec 27, 2021 Time Seen by Provider: 09:00 Chief complaint: Abdominal pain with fatigue HPI: This is an 81-year-old female of Andie Pham who presented to the ER with vague complaints including chronic abdominal pain but was found to have elevated troponin. Dr. Gallo is consulted. She has had multiple tests to evaluate the abdominal pain and Dr. WHITNEY for exploratory but she did not want to go that direction. at the bedside. Reviewed meds and labs. Subjective/Events-last exam Pt is doing pretty well Refused to get up with PT and OT Transferring to 4th floor Obesity hypoventilation syndrome noted Will move to 4th floor and see if we can get her moving Very poor prognosis Review of Systems General: Fatigue, Malaise Pulmonary: Dyspnea Objective Exam Vital Signs Vital Signs Date Time Temp Pulse Resp B/P (MAP) Pulse Ox O2 Delivery O2 Flow Rate FiO2 12/28/21 03:46 36.1 56 18 125/70 (88) 95 Nasal Cannula 2.00 12/27/21 14:38 21 Capillary Refill : Less Than 3 Seconds General Appearance: No Apparent Distress, WD/WN, Chronically ill, Obese Respiratory: No Accessory Muscle Use, No Respiratory Distress, Decreased Breath Sounds, Wheezing Cardiovascular: Regular Rate, Rhythm Neurologic/Psychiatric: Alert, Oriented x3, No Motor/Sensory Deficits, Normal Mood/Affect Results/Procedures Lab Laboratory Tests 12/27/21 05:49 Patient resulted labs reviewed. Assessment/Plan Assessment and Plan Assess & Plan/Chief Complaint Assessment: Hypertensive urgency NSTEMI type II Exacerbation of COPD Morbid obesity Acute on chronic abdominal pain Wheezing UTI h/o Sepsis 1 month ago placed on Rocephin empirically after reviewed UCX Suspected KETAN/obesity hypoventilation syndrome with ABG revealing hypercapnia and hypoxia Plan: Home meds Blood pressure management Monitor closely Antibiotics IV fluid Hep-Lock Lasix Nebs Moved to fourth floor BRANDEE MCNALLY DO Dec 27, 2021 05:45
[2021-12-27] MEDS: ONDANSETRON 4 MG/2 ML (SDV) Z0FRAN IV PRN ×2 (05:55→13:49)
[2021-12-27] MEDS: ENOXAPARIN 60 MG/0.6 ML (LOVENOX) SYR SC SCH ×2 (05:55→18:27)
[2021-12-27] MEDS: ALPRAZolam 0.25 MG (XANAX) TAB PO PRN (05:55)
[2021-12-27 06:25] LABS: BASOPHILS # (AUTO) 0.1 10^3/uL (0.0-0.1); BASOPHILS % (AUTO) 1 % (0-10); EOSINOPHILS # (AUTO) 0.4 10^3/uL (0.0-0.3); EOSINOPHILS % (AUTO) 4 % (0-10); HEMATOCRIT 39 % (35-52); HEMOGLOBIN 12.2 g/dL (11.5-16.0); LYMPHOCYTES % (AUTO) 21 % (12-44); MEAN CORPUSCULAR HEMOGLOBIN 31 pg (25-34); MEAN CORPUSCULAR HGB CONC 32 g/dL (32-36); MEAN CORPUSCULAR VOLUME 97 fL (80-99); MEAN PLATELET VOLUME 9.7 fL (9.0-12.2); MONOCYTES # (AUTO) 1.4 10^3/uL (0.0-1.0); MONOCYTES % (AUTO) 15 % (0-12); NEUTROPHILS # (AUTO) 5.6 10^3/uL (1.8-7.8); NEUTROPHILS % (AUTO) 59 % (42-75); PLATELET COUNT 261 10^3/uL (130-400); WHITE BLOOD COUNT 9.5 10^3/uL (4.3-11.0)
[2021-12-27 06:36] LABS: ALBUMIN 3.5 GM/DL (3.2-4.5); POTASSIUM 3.8 MMOL/L (3.6-5.0)
[2021-12-27 06:37] LABS: CALCIUM 9.2 MG/DL (8.5-10.1)
[2021-12-27 06:39] LABS: TOTAL PROTEIN 6.6 GM/DL (6.4-8.2)
[2021-12-27 06:41] LABS: BILIRUBIN,TOTAL 0.5 MG/DL (0.1-1.0)
[2021-12-27 06:42] LABS: CREATININE SERUM 0.89 MG/DL (0.60-1.30)
[2021-12-27] MEDS: ASPIRIN 81 MG CHEW (CHILDREN'S ASA) PO SCH (08:48)
[2021-12-27] MEDS: LOSARTAN 100 MG (COZAAR) TABLET PO SCH (08:48)
[2021-12-27] MEDS: guaiFENesin (MUCINEX) 600 MG TAB PO SCH ×2 (08:48→19:56)
[2021-12-27] MEDS: meTOprolol TARTRATE 50 MG (LOPRESSOR) TAB PO SCH (08:49)
[2021-12-27] MEDS: PANTOPRAZOLE 40 MG (PROTONIX) VIAL IV SCH (08:49)
--- NOTE | 2021-12-27 08:58 | Occ Therapy Progress Note ---
Therapy Progress Note OT evaluation attempted this AM, pt adamantly refused OT services at this time due to not feeling well. OT provided education on purpose/benefit of OT with focus on returning home, pt continued to decline stating she is able to manage at home. Pt has a lift chair that she spends the majority of the day in, only getting up to BSC. Pt does not feel like she will have any deficits upon returning home, although pt's nurse reports it is taking 2 person assist to get pt to BSC. OT will attempt evaluation 1 more time, and if pt does not participate or refuses tx, then OT will plan on discharging pt. 1, refusal [id number] RUFUS SHETH OT Dec 27, 2021 08:58
[2021-12-27] MEDS ORDERED: VITAMIN D2 1.25 MG (50,000 UNITS) CAP PO SCH (09:00)
[2021-12-27] MEDS: polyethylene glycoL POWDER 17 GM (MIRALAX) PACK PO SCH ×2 (09:14→19:55)
[2021-12-27] MEDS: MICONAZOLE 2% POWDER (DESENEX AF) 90 GM TOP SCH ×2 (09:15→19:57)
[2021-12-27] MEDS: SENNA W/DOCUSATE (SENOKOT S) TABLET PO SCH ×2 (09:15→19:55)
--- NOTE | 2021-12-27 09:59 | Physical Therapy Progress Note ---
Therapy Progress Note Patient continues to refuse physical therapy stating, "I don't feel like it." PT attempted to educate patient on importance of participating with PT to increase strength and mobility. Patient continued to refuse. Patient has refused x 3 attempts since last week. Due to lack of participation, PT to remove patient from services at this time. RN notified. 1 ref/DC BEAN ELENA PT Dec 27, 2021 09:59
[2021-12-27] MEDS: cefTRIAXone 1 GM PRE-MIX 50 ML IV SCH (10:55)
--- NOTE | 2021-12-27 11:09 | Occ Therapy Progress Note ---
Therapy Progress Note OT attempted evaluation again this AM at 1100, pt again refused OT services at this time due to not feeling well. OT provided education on purpose/benefit of OT, but pt continued to decline. OT to discharge pt from services at this time due to x3 refusals from pt since last week, and due to lack of participation. D/C from OT. 1, refusal RUFUS SHETH OT Dec 27, 2021 11:09
--- NOTE | 2021-12-27 13:01 | Cardiology Progress Note ---
Progress Note-Cardiology Events since last exam Date Seen by Provider: Dec 27, 2021 Time Seen by Provider: 13:01 Events since last exam I am following her due to abnormal troponin level and hypertension. Her maryam athing continues to improve. She has persistent peripheral edema. She denies chest pain, palpitations, or syncope. Certain portions of this document may have been dictated utilizing voice recognition technology. Inherent to this technology, typographical and grammatical errors may exist. As much as I am diligent to identify and correct these mistakes, some errors may remain in the document. Vitals Last set of Vitals Signs Vital Signs 12/27/21 12/27/21 12/27/21 14:34 14:38 15:10 Temp 36.0 Pulse 63 Resp 18 B/P (MAP) 109/53 (71) Pulse Ox 92 O2 Delivery Room Air O2 Flow Rate 0.00 FiO2 21 Labs Labs Laboratory Tests 12/27/21 05:49 Exam Vital Signs Vital Signs Date Time Temp Pulse Resp B/P (MAP) Pulse Ox O2 Delivery O2 Flow Rate FiO2 12/27/21 15:10 36.0 63 18 109/53 (71) 92 Room Air 12/27/21 14:38 21 12/27/21 14:34 0.00 Physical Exam General: Alert. No acute distress. Well nourished and appears stated age. She is morbidly obese. Eye: Extraocular movements are intact. Conjunctivae are clear. There are no xanthelasma. HENT: Normocephalic. Atraumatic. Carotid pulsations 2/2 without bruits. Neck: Jugular venous pressure does not appear elevated. No thyromegaly appreciated. Respiratory: Minimal bilateral scattered wheezes. Respirations are non-labored. Breath sounds are equal. Symmetrical chest wall expansion. Cardiovascular: Normal rate. Regular rhythm. Distant S1/S2. No murmur. No gallop. Point of maximal impulse is not appear displaced. Good pulses equal in all extremities. 2+ bilateral pretibial edema. Gastrointestinal: Soft. Normal bowel sounds. Skin: Skin turgor is normal. There is no pallor. Musculoskeletal: No kyphosis or scoliosis appreciated. Neurologic: Alert and oriented to person, place, time. Cranial nerves 3-12 appear grossly intact. The patient has good motor tone strength in the upper and lower extremities bilaterally. Psychiatric: Cooperative. Appropriate mood & affect. Labs Laboratory Tests Test 12/27/21 05:49 Range/Units White Blood Count 9.5 4.3-11.0 10^3/uL Red Blood Count 3.97 3.80-5.11 10^6/uL Hemoglobin 12.2 11.5-16.0 g/dL Hematocrit 39 35-52 % Mean Corpuscular Volume 97 80-99 fL Mean Corpuscular Hemoglobin 31 25-34 pg Mean Corpuscular Hemoglobin Concent 32 32-36 g/dL Red Cell Distribution Width 13.7 10.0-14.5 % Platelet Count 261 130-400 10^3/uL Mean Platelet Volume 9.7 9.0-12.2 fL Immature Granulocyte % (Auto) 0 % Neutrophils (%) (Auto) 59 42-75 % Lymphocytes (%) (Auto) 21 12-44 % Monocytes (%) (Auto) 15 H 0-12 % Eosinophils (%) (Auto) 4 0-10 % Basophils (%) (Auto) 1 0-10 % Neutrophils # (Auto) 5.6 1.8-7.8 10^3/uL Lymphocytes # (Auto) 2.0 1.0-4.0 10^3/uL Monocytes # (Auto) 1.4 H 0.0-1.0 10^3/uL Eosinophils # (Auto) 0.4 H 0.0-0.3 10^3/uL Basophils # (Auto) 0.1 0.0-0.1 10^3/uL Immature Granulocyte # (Auto) 0.0 0.0-0.1 10^3/uL Sodium Level 138 135-145 MMOL/L Potassium Level 3.8 3.6-5.0 MMOL/L Chloride Level 106 98-107 MMOL/L Carbon Dioxide Level 27 21-32 MMOL/L Anion Gap 5 5-14 MMOL/L Blood Urea Nitrogen 12 7-18 MG/DL Creatinine 0.89 0.60-1.30 MG/DL Estimat Glomerular Filtration Rate 65 BUN/Creatinine Ratio 13 Glucose Level 119 H 70-105 MG/DL Calcium Level 9.2 8.5-10.1 MG/DL Corrected Calcium 9.6 8.5-10.1 MG/DL Total Bilirubin 0.5 0.1-1.0 MG/DL Aspartate Amino Transf (AST/SGOT) 22 5-34 U/L Alanine Aminotransferase (ALT/SGPT) 20 0-55 U/L Alkaline Phosphatase 48 40-136 U/L Total Protein 6.6 6.4-8.2 GM/DL Albumin 3.5 3.2-4.5 GM/DL Diagnosis/Problems Diagnosis/Problems (1) Hypertensive urgency Status: Acute Assessment & Plan: She is back on the losartan and the primary provider increased the dose on 12/25. I started her on metoprolol to tartrate on 12/26 but she remained hypertensive throughout the night and required some additional intravenous metoprolol. I will change the metoprolol over to carvedilol 25 mg twice daily. She may need some additional antihypertensive medication as well. (2) Elevated troponin Status: Acute Assessment & Plan: The troponin levels are essentially flat. She is not having any symptoms concerning for angina. She does have shortness of breath but this is chronic and actually improving. She has no ischemic changes on her electrocardiogram. Her echocardiogram from this admission shows a normal ejection fraction. I suspect she may have had a very small type II non-ST elevation myocardial infarction due to supply/demand mismatch from the hypertensive urgency. At some point we may want to consider an ischemic evaluation but this could certainly be done as an outpatient unless her clinical course deteriorates. I recommend she continue aspirin 81 mg daily which I started at the time of admission. (3) Pulmonary hypertension Assessment & Plan: I suspect this may be related to undiagnosed sleep apnea and her morbid obesity. This will need to be followed longitudinally. She may benefit from home oxygen if she is not already using this. (4) Primary hypertension Assessment & Plan: As above. I would avoid amlodipine as this would likely cause worsening peripheral edema.. (5) Mixed hyperlipidemia Assessment & Plan: Her LDL level is minimally elevated. She could probably start with dietary changes and then reassess in 1-2 months. (6) Morbid obesity Status: Chronic Assessment & Plan: She needs to work on weight loss. She has been counseled in this regard. JESSICA VIRK JR, MD Dec 27, 2021 13:01
[2021-12-27] MEDS: ONDANSETRON 4 MG (ZOFRAN) ORAL DISSOLVE TAB PO PRN (18:29)
[2021-12-27] MEDS: MELATONIN 3 MG TABLET PO PRN (19:56)
[2021-12-28] VITALS (9 sets, daily range): BP systolic 94–196; BP diastolic 58–78
[2021-12-28] MEDS: RT-ALBUTEROL/IPRATROPIUM 3 ML (DUONEB) VIAL INH SCH ×4 (02:26→21:15)
[2021-12-28] MEDS: ENOXAPARIN 60 MG/0.6 ML (LOVENOX) SYR SC SCH ×2 (05:12→18:50)
[2021-12-28 05:45] LABS: BASOPHILS # (AUTO) 0.1 10^3/uL (0.0-0.1); BASOPHILS % (AUTO) 1 % (0-10); EOSINOPHILS # (AUTO) 0.5 10^3/uL (0.0-0.3); EOSINOPHILS % (AUTO) 6 % (0-10); HEMATOCRIT 36 % (35-52); HEMOGLOBIN 11.6 g/dL (11.5-16.0); LYMPHOCYTES # (AUTO) 2.2 10^3/uL (1.0-4.0); LYMPHOCYTES % (AUTO) 26 % (12-44); MEAN CORPUSCULAR HEMOGLOBIN 31 pg (25-34); MEAN CORPUSCULAR HGB CONC 32 g/dL (32-36); MEAN CORPUSCULAR VOLUME 97 fL (80-99); MEAN PLATELET VOLUME 9.7 fL (9.0-12.2); MONOCYTES # (AUTO) 1.1 10^3/uL (0.0-1.0); MONOCYTES % (AUTO) 12 % (0-12); NEUTROPHILS # (AUTO) 4.6 10^3/uL (1.8-7.8); NEUTROPHILS % (AUTO) 55 % (42-75); PLATELET COUNT 242 10^3/uL (130-400); WHITE BLOOD COUNT 8.4 10^3/uL (4.3-11.0)
[2021-12-28 06:03] LABS: ALBUMIN 3.3 GM/DL (3.2-4.5); BILIRUBIN,TOTAL 0.4 MG/DL (0.1-1.0); CALCIUM 9.4 MG/DL (8.5-10.1); CREATININE SERUM 0.82 MG/DL (0.60-1.30); POTASSIUM 4.1 MMOL/L (3.6-5.0); TOTAL PROTEIN 6.1 GM/DL (6.4-8.2)
[2021-12-28] MEDS: guaiFENesin (MUCINEX) 600 MG TAB PO SCH ×2 (09:00→20:37)
[2021-12-28] MEDS: PANTOPRAZOLE 40 MG (PROTONIX) VIAL IV SCH (09:00)
[2021-12-28] MEDS: LOSARTAN 100 MG (COZAAR) TABLET PO SCH (09:01)
[2021-12-28] MEDS: ASPIRIN 81 MG CHEW (CHILDREN'S ASA) PO SCH (09:02)
[2021-12-28] MEDS: MICONAZOLE 2% POWDER (DESENEX AF) 90 GM TOP SCH ×2 (09:02→20:37)
[2021-12-28] MEDS: polyethylene glycoL POWDER 17 GM (MIRALAX) PACK PO SCH ×2 (09:14→20:37)
[2021-12-28] MEDS: SENNA W/DOCUSATE (SENOKOT S) TABLET PO SCH ×2 (09:14→20:37)
--- NOTE | 2021-12-28 09:52 | Cardiology Progress Note ---
Progress Note-Cardiology Events since last exam Date Seen by Provider: Dec 28, 2021 Time Seen by Provider: 09:50 Events since last exam I am following her due to abnormal troponin level and hypertensive urgency. She is still somewhat short of breath this morning. She denies chest discomfort, palpitations or syncope. Her chronic, bilateral lower extremity edema persists. She had some mild muscle aches this morning and her abdomen. Certain portions of this document may have been dictated utilizing voice r ecognition technology. Inherent to this technology, typographical and grammatical errors may exist. As much as I am diligent to identify and correct these mistakes, some errors may remain in the document. Vitals Last set of Vitals Signs Vital Signs 12/27/21 12/28/21 14:38 16:00 Temp 36.6 Pulse 53 Resp 19 B/P (MAP) 147/65 (92) Pulse Ox 97 O2 Delivery Nasal Cannula O2 Flow Rate 2.00 FiO2 21 Labs Labs Laboratory Tests 12/28/21 05:03 Exam Vital Signs Vital Signs Date Time Temp Pulse Resp B/P (MAP) Pulse Ox O2 Delivery O2 Flow Rate FiO2 12/28/21 16:00 36.6 53 19 147/65 (92) 97 Nasal Cannula 2.00 12/27/21 14:38 21 Physical Exam General: Alert. No acute distress. She is morbidly obese. Eye: No xanthelasma. HENT: Normocephalic. Neck: Jugular venous pressure does not appear elevated. Respiratory: Lungs have some scattered wheezes, worse at the right base. Respirations are non-labored. Breath sounds are equal. Symmetrical chest wall expansion. Cardiovascular: Normal rate. Regular rhythm. Distant S1/S2. No murmur. No gallop. 1-2+ bilateral pretibial edema without venous stasis changes. Gastrointestinal: Soft. Normal bowel sounds. Skin: Warm. Dry. Neurologic: Alert and oriented to person, place, time. Cranial nerves 3-11 grossly intact. Psychiatric: Cooperative. Appropriate mood & affect. Labs Laboratory Tests Test 12/28/21 05:03 Range/Units White Blood Count 8.4 4.3-11.0 10^3/uL Red Blood Count 3.74 L 3.80-5.11 10^6/uL Hemoglobin 11.6 11.5-16.0 g/dL Hematocrit 36 35-52 % Mean Corpuscular Volume 97 80-99 fL Mean Corpuscular Hemoglobin 31 25-34 pg Mean Corpuscular Hemoglobin Concent 32 32-36 g/dL Red Cell Distribution Width 13.7 10.0-14.5 % Platelet Count 242 130-400 10^3/uL Mean Platelet Volume 9.7 9.0-12.2 fL Immature Granulocyte % (Auto) 0 % Neutrophils (%) (Auto) 55 42-75 % Lymphocytes (%) (Auto) 26 12-44 % Monocytes (%) (Auto) 12 0-12 % Eosinophils (%) (Auto) 6 0-10 % Basophils (%) (Auto) 1 0-10 % Neutrophils # (Auto) 4.6 1.8-7.8 10^3/uL Lymphocytes # (Auto) 2.2 1.0-4.0 10^3/uL Monocytes # (Auto) 1.1 H 0.0-1.0 10^3/uL Eosinophils # (Auto) 0.5 H 0.0-0.3 10^3/uL Basophils # (Auto) 0.1 0.0-0.1 10^3/uL Immature Granulocyte # (Auto) 0.0 0.0-0.1 10^3/uL Sodium Level 141 135-145 MMOL/L Potassium Level 4.1 3.6-5.0 MMOL/L Chloride Level 105 98-107 MMOL/L Carbon Dioxide Level 28 21-32 MMOL/L Anion Gap 8 5-14 MMOL/L Blood Urea Nitrogen 14 7-18 MG/DL Creatinine 0.82 0.60-1.30 MG/DL Estimat Glomerular Filtration Rate 72 BUN/Creatinine Ratio 17 Glucose Level 110 H 70-105 MG/DL Calcium Level 9.4 8.5-10.1 MG/DL Corrected Calcium 10.0 8.5-10.1 MG/DL Total Bilirubin 0.4 0.1-1.0 MG/DL Aspartate Amino Transf (AST/SGOT) 21 5-34 U/L Alanine Aminotransferase (ALT/SGPT) 21 0-55 U/L Alkaline Phosphatase 50 40-136 U/L Total Protein 6.1 L 6.4-8.2 GM/DL Albumin 3.3 3.2-4.5 GM/DL Diagnosis/Problems Diagnosis/Problems (1) Hypertensive urgency Status: Acute Assessment & Plan: She is back on the losartan and the primary provider increased the dose on 12/25. I placed her on carvedilol on and her blood presssure has improved. (2) Elevated troponin Status: Acute Assessment & Plan: The troponin levels are essentially flat. She is not having any symptoms concerning for angina. She does have shortness of breath but this is chronic and actually improving. She has no ischemic changes on her electr ocardiogram. Her echocardiogram from this admission shows a normal ejection fraction. I suspect she may have had a very small type II non-ST elevation myocardial infarction due to supply/demand mismatch from the hypertensive urgency. At some point we may want to consider an ischemic evaluation but this could certainly be done as an outpatient unless her clinical course deteriorates. I recommend she continue aspirin 81 mg daily which I started at the time of admission. (3) Pulmonary hypertension Assessment & Plan: I suspect this may be related to undiagnosed sleep apnea and her morbid obesity. This will need to be followed longitudinally. She may benefit from home oxygen if she is not already using this. (4) Primary hypertension Assessment & Plan: As above. If she needs an additional antihypertensive agent, I would avoid amlodipine as this may make her chronic peripheral edema worse. (5) Mixed hyperlipidemia Assessment & Plan: Her LDL level is minimally elevated. She could probably start with dietary changes and then reassess in 1-2 months. (6) Morbid obesity Status: Chronic Assessment & Plan: She needs to work on weight loss. She has been counseled in this regard. JESSICA VIRK JR, MD Dec 28, 2021 09:52
--- NOTE | 2021-12-28 10:05 | Progress Note ---
HANSA RADFORD 12/28/21 1005: Subjective Date Seen by a Provider: Dec 28, 2021 Time Seen by a Provider: 08:00 Subjective/Events-last exam Patient is awake and alert in her bed this morning. She complains of abdominal pain in the RLQ and LLQ, which is worse when she coughs. Patient also states that she has been having pain in her lower back. There was mild diffuse tenderness on palpation of the abdomen. The patient has b/l edema of both the upper and lower extremities and is tender on palpation of the lower extremities. She has been refusing to work with PT/OT and has not been ambulating. Patient also reports having some nausea without vomiting. Review of Systems General: Fatigue, Malaise Pulmonary: Dyspnea, Cough Cardiovascular: Edema (b/l lower and upper extremities); No: Chest Pain Gastrointestinal: Nausea, Abdominal Pain (RLQ and LLQ); No: Vomiting Musculoskeletal: back pain (Lumbar) Neurological: No: Weakness, Numbness, Incoordination Objective Exam Last Set of Vital Signs Vital Signs Date Time Temp Pulse Resp B/P (MAP) Pulse Ox O2 Delivery O2 Flow Rate FiO2 12/28/21 09:11 165/69 (101) 12/28/21 07:16 98 Nasal Cannula 2.00 12/28/21 07:14 36.0 60 19 12/27/21 14:38 21 Capillary Refill : Less Than 3 Seconds I&O Intake and Output 12/28/21 00:00 Intake Total 1620 ml Output Total 900 ml Balance 720 ml Intake Oral 1620 ml Output Urine Total 900 ml # Voids 2 # Bowel Movements 2 General: Alert, Oriented X3 HEENT: Atraumatic Neck: Supple Heart: Regular Rate, No Murmurs Abdomen: Soft Extremities: No Clubbing, Other (Pitting edema b/l LE, mild edema in b/l upper extremities) Neuro: Normal Speech, Sensation Intact Results Lab Laboratory Tests 12/28/21 05:03: White Blood Count 8.4, Red Blood Count 3.74L, Hemoglobin 11.6, Hematocrit 36, Mean Corpuscular Volume 97, Mean Corpuscular Hemoglobin 31, Mean Corpuscular Hemoglobin Concent 32, Red Cell Distribution Width 13.7, Platelet Count 242, Mean Platelet Volume 9.7, Immature Granulocyte % (Auto) 0, Neutrophils (%) (Auto) 55, Lymphocytes (%) (Auto) 26, Monocytes (%) (Auto) 12, Eosinophils (%) (Auto) 6, Basophils (%) (Auto) 1, Neutrophils # (Auto) 4.6, Lymphocytes # (Auto) 2.2, Monocytes # (Auto) 1.1H, Eosinophils # (Auto) 0.5H, Basophils # (Auto) 0.1, Immature Granulocyte # (Auto) 0.0, Sodium Level 141, Potassium Level 4.1, Ch loride Level 105, Carbon Dioxide Level 28, Anion Gap 8, Blood Urea Nitrogen 14, Creatinine 0.82, Estimat Glomerular Filtration Rate 72, BUN/Creatinine Ratio 17, Glucose Level 110H, Calcium Level 9.4, Corrected Calcium 10.0, Total Bilirubin 0.4, Aspartate Amino Transf (AST/SGOT) 21, Alanine Aminotransferase (ALT/SGPT) 21, Alkaline Phosphatase 50, Total Protein 6.1L, Albumin 3.3 Microbiology 12/25/21 Urine Culture - Final, Complete Escherichia coli Proteus vulgaris Assessment/Plan Assessment/Plan Assess & Plan/Chief Complaint Assessment: Hypertensive urgency NSTEMI type II Exacerbation of COPD Morbid obesity Acute on chronic abdominal pain Wheezing UTI h/o Sepsis 1 month ago placed on Rocephin empirically after reviewed UCX Suspected KETAN/obesity hypoventilation syndrome with ABG revealing hypercapnia and hypoxia Plan: Home meds Blood pressure management Monitor closely Antibiotics IV fluid Hep-Lock Lasix Nebs Continue oxygen Cardiology consulted Continue antiemetics Discussed possible discharge tomorrow Encourage patient to ambulate RENETTA ALLISON DO 12/29/21 0504: Subjective Subjective/Events-last exam Pt is doing about the same Very debilitated unsure how she can manage at home Having nonspecific abdominal pain Bowels are moving Urinating well Maintain on Rocephin Discharge planned for tomorrow on home health Review of Systems Pulmonary: Dyspnea, Cough Gastrointestinal: Abdominal Pain (RLQ and LLQ) Objective Exam General: Alert, Oriented X3, Cooperative, No Acute Distress Lungs: Clear to Auscultation Heart: Regular Rate Psych/Mental Status: Mental Status NL Supervisory-Addendum Brief Verification & Attestation Participated in pt care: history, MDM, physical Personally performed: exam, history, MDM, supervision of care Care discussed with: Medical Student Procedures: n/a Results interpretation: Verified all documentation Verification and Attestation of Medical Student E/M Service A medical student performed and documented this service in my presence. I reviewed and verified all information documented by the medical student and made modifications to such information, when appropriate. I personally performed the physical exam and medical decision making. Renetta Allison, Dec 29, 2021,05:03 HANSA RADFORD Dec 28, 2021 10:05 RENETTA ALLISON DO Dec 29, 2021 05:04
[2021-12-28] MEDS: cefTRIAXone 1 GM PRE-MIX 50 ML IV SCH (13:14)
[2021-12-28] MEDS: ONDANSETRON 4 MG/2 ML (SDV) Z0FRAN IV PRN (20:40)
[2021-12-28] MEDS: meTOprolol 5 MG/5 ML (LOPRESSOR) VIAL IV PRN (23:50)
[2021-12-29 00:51] VITALS: BP 179/78
[2021-12-29 03:32] VITALS: BP 179/79
[2021-12-29] MEDS: ENOXAPARIN 60 MG/0.6 ML (LOVENOX) SYR SC SCH ×2 (05:21→18:01)
[2021-12-29 05:31] LABS: BASOPHILS # (AUTO) 0.1 10^3/uL (0.0-0.1); BASOPHILS % (AUTO) 1 % (0-10); EOSINOPHILS # (AUTO) 0.5 10^3/uL (0.0-0.3); EOSINOPHILS % (AUTO) 6 % (0-10); HEMATOCRIT 38 % (35-52); HEMOGLOBIN 12.1 g/dL (11.5-16.0); LYMPHOCYTES # (AUTO) 2.2 10^3/uL (1.0-4.0); LYMPHOCYTES % (AUTO) 25 % (12-44); MEAN CORPUSCULAR HEMOGLOBIN 31 pg (25-34); MEAN CORPUSCULAR HGB CONC 32 g/dL (32-36); MEAN CORPUSCULAR VOLUME 96 fL (80-99); MEAN PLATELET VOLUME 9.4 fL (9.0-12.2); MONOCYTES # (AUTO) 1.1 10^3/uL (0.0-1.0); MONOCYTES % (AUTO) 12 % (0-12); NEUTROPHILS % (AUTO) 56 % (42-75); PLATELET COUNT 235 10^3/uL (130-400); WHITE BLOOD COUNT 8.8 10^3/uL (4.3-11.0)
[2021-12-29 05:49] LABS: ALBUMIN 3.5 GM/DL (3.2-4.5); BILIRUBIN,TOTAL 0.5 MG/DL (0.1-1.0); CALCIUM 9.6 MG/DL (8.5-10.1); CREATININE SERUM 0.8 MG/DL (0.60-1.30); POTASSIUM 4.1 MMOL/L (3.6-5.0); TOTAL PROTEIN 6.6 GM/DL (6.4-8.2)
[2021-12-29 08:15] VITALS: BP 170/74
--- NOTE | 2021-12-29 08:48 | Cardiology Progress Note ---
Progress Note-Cardiology Events since last exam Date Seen by Provider: Dec 29, 2021 Time Seen by Provider: 08:49 Events since last exam I am following her due to hypertensive urgency and abnormal troponin level. For shortness of breath has improved but is not quite back to her baseline. She denies chest discomfort, palpitations, or syncope. Her peripheral edema is now back to about her baseline. Her main complaint today is bilateral lower quadrant abdominal pain. She states this happens when she coughs. Certain portions of this document may have been dictated utilizing voice recognition technology. Inherent to this technology, typographical and grammatical errors may exist. As much as I am diligent to identify and correct these mistakes, some errors may remain in the document. Vitals Last set of Vitals Signs Vital Signs 12/27/21 12/29/21 12/29/21 14:38 12:12 15:20 Temp 36.4 Pulse 58 Resp 20 B/P (MAP) 124/61 (82) Pulse Ox 92 O2 Delivery Room Air O2 Flow Rate 2.00 FiO2 21 Labs Labs Laboratory Tests 12/29/21 05:19 Exam Vital Signs Vital Signs Date Time Temp Pulse Resp B/P (MAP) Pulse Ox O2 Delivery O2 Flow Rate FiO2 12/29/21 15:20 36.4 58 20 124/61 (82) 92 Room Air 12/29/21 12:12 2.00 12/27/21 14:38 21 Physical Exam General: Alert. No acute distress. She is morbidly obese. She is wearing oxygen by nasal cannula. Eye: No xanthelasma. HENT: Normocephalic. Neck: Jugular venous pressure does not appear elevated. Respiratory: Lungs have scattered wheezes bilaterally. Respirations are non- labored. Breath sounds are equal. Symmetrical chest wall expansion. Cardiovascular: Normal rate. Regular rhythm. Distant S1/S2. No murmur. No gallop. 1+ bilateral pretibial edema without venous stasis changes. Gastrointestinal: Soft. Normal bowel sounds. Skin: Warm. Dry. Neurologic: Alert and oriented to person, place, time. Cranial nerves 3-11 grossly intact. Psychiatric: Cooperative. Appropriate mood & affect. Labs Laboratory Tests Test 12/29/21 05:19 Range/Units White Blood Count 8.8 4.3-11.0 10^3/uL Red Blood Count 3.92 3.80-5.11 10^6/uL Hemoglobin 12.1 11.5-16.0 g/dL Hematocrit 38 35-52 % Mean Corpuscular Volume 96 80-99 fL Mean Corpuscular Hemoglobin 31 25-34 pg Mean Corpuscular Hemoglobin Concent 32 32-36 g/dL Red Cell Distribution Width 13.7 10.0-14.5 % Platelet Count 235 130-400 10^3/uL Mean Platelet Volume 9.4 9.0-12.2 fL Immature Granulocyte % (Auto) 1 % Neutrophils (%) (Auto) 56 42-75 % Lymphocytes (%) (Auto) 25 12-44 % Monocytes (%) (Auto) 12 0-12 % Eosinophils (%) (Auto) 6 0-10 % Basophils (%) (Auto) 1 0-10 % Neutrophils # (Auto) 5.0 1.8-7.8 10^3/uL Lymphocytes # (Auto) 2.2 1.0-4.0 10^3/uL Monocytes # (Auto) 1.1 H 0.0-1.0 10^3/uL Eosinophils # (Auto) 0.5 H 0.0-0.3 10^3/uL Basophils # (Auto) 0.1 0.0-0.1 10^3/uL Immature Granulocyte # (Auto) 0.1 0.0-0.1 10^3/uL Sodium Level 138 135-145 MMOL/L Potassium Level 4.1 3.6-5.0 MMOL/L Chloride Level 104 98-107 MMOL/L Carbon Dioxide Level 25 21-32 MMOL/L Anion Gap 9 5-14 MMOL/L Blood Urea Nitrogen 13 7-18 MG/DL Creatinine 0.80 0.60-1.30 MG/DL Estimat Glomerular Filtration Rate 74 BUN/Creatinine Ratio 16 Glucose Level 97 70-105 MG/DL Calcium Level 9.6 8.5-10.1 MG/DL Corrected Calcium 10.0 8.5-10.1 MG/DL Total Bilirubin 0.5 0.1-1.0 MG/DL Aspartate Amino Transf (AST/SGOT) 21 5-34 U/L Alanine Aminotransferase (ALT/SGPT) 25 0-55 U/L Alkaline Phosphatase 48 40-136 U/L Total Protein 6.6 6.4-8.2 GM/DL Albumin 3.5 3.2-4.5 GM/DL Diagnosis/Problems Diagnosis/Problems (1) Hypertensive urgency Status: Acute Assessment & Plan: She is back on the losartan and the primary provider increased the dose on 12/25. I placed her on carvedilol on and her blood presssure has improved but is still elevated at times. I will add hydrochlorothiazide. (2) Elevated troponin Status: Acute Assessment & Plan: The troponin levels are essentially flat. She is not having any symptoms concerning for angina. She does have shortness of breath but this is chronic and actually improving. She has no ischemic changes on her electrocardiogram. Her echocardiogram from this admission shows a normal ejection fraction. I suspect she may have had a very small type II non-ST elevation myocardial infarction due to supply/demand mismatch from the hypertensive urgency. At some point we may want to consider an ischemic evaluation but this could certainly be done as an outpatient unless her clinical course deteriorates. I recommend she continue aspirin 81 mg daily which I started at the time of admission. (3) Pulmonary hypertension Assessment & Plan: Her echocardiogram from this admission showed moderate pulmonary hypertension with a pulmonary systolic pressure of 50 mmHg. We may want to consider screening her for sleep apnea following discharge if this has not already been done in the past. I suspect the pulmonary hypertension may be related to undiagnosed sleep apnea and her morbid obesity. This will need to be followed longitudinally. She may benefit from home oxygen if she is not already using this. (4) Primary hypertension Assessment & Plan: As above, her blood pressure has remained elevated. I will add hydrochlorothiazide. (5) Mixed hyperlipidemia Assessment & Plan: Her LDL level is minimally elevated. She could probably start with dietary changes and then reassess in 1-2 months. (6) Morbid obesity Status: Chronic Assessment & Plan: She needs to work on weight loss. She has been counseled in this regard. JESSICA VIRK JR, MD Dec 29, 2021 08:48
[2021-12-29] MEDS: ASPIRIN 81 MG CHEW (CHILDREN'S ASA) PO SCH (09:32)
[2021-12-29] MEDS: guaiFENesin (MUCINEX) 600 MG TAB PO SCH ×2 (09:32→20:02)
[2021-12-29] MEDS: LOSARTAN 100 MG (COZAAR) TABLET PO SCH (09:32)
[2021-12-29] MEDS: SENNA W/DOCUSATE (SENOKOT S) TABLET PO SCH ×2 (09:34→20:05)
[2021-12-29] MEDS: MICONAZOLE 2% POWDER (DESENEX AF) 90 GM TOP SCH ×2 (09:34→23:18)
[2021-12-29] MEDS: polyethylene glycoL POWDER 17 GM (MIRALAX) PACK PO SCH ×2 (09:35→20:07)
[2021-12-29] MEDS: PANTOPRAZOLE 40 MG (PROTONIX) VIAL IV SCH (09:35)
[2021-12-29] MEDS: ONDANSETRON 4 MG/2 ML (SDV) Z0FRAN IV PRN (10:04)
[2021-12-29] MEDS: RT-ALBUTEROL/IPRATROPIUM 3 ML (DUONEB) VIAL INH SCH ×3 (10:19→22:27)
[2021-12-29] MEDS ORDERED: amLODIPine 5 MG (NORVASC) TAB PO NR (11:00)
[2021-12-29] MEDS ORDERED: ASPI81TA64 PO (11:18)
[2021-12-29] MEDS ORDERED: GUAI600T43 PO (11:18)
[2021-12-29] MEDS ORDERED: AMLO-250 PO (11:18)
[2021-12-29] MEDS ORDERED: PROM25TA14 PO (11:18)
[2021-12-29] MEDS ORDERED: CARV12.53 PO (11:18)
[2021-12-29] MEDS ORDERED: HYDR25TA4 PO (11:18)
--- NOTE | 2021-12-29 11:20 | Discharge Summary ---
Discharge Summary Hospital Course Was the Problem List Reviewed?: Yes Problems/Dx: (1) Hypertensive urgency Status: Acute (2) Elevated troponin Status: Acute (3) Pulmonary hypertension (4) Primary hypertension (5) Mixed hyperlipidemia (6) Morbid obesity Status: Chronic Hospital Course Date of Admission: Dec 23, 2021 at 23:32 Admission Diagnosis : Family Physician/Provider: Marychuy Pham Date of Discharge: 12/29/21 Discharge Diagnosis: [ ] Hospital Course: Patient is an 88-year-old female with a history of COPD, chronic bronchitis, HTN, and morbid obesity who presented the ED on 12/23 with chief complaint of nausea, RUQ abdominal pain, fatigue, and cough. Patient was found to have an elevated troponin shortly after admission and cardiology was consulted with workup showing nothing abnormal, possibly a small type II NSTEMI resulting from the patient's hypertensive urgency. On UA, the patient was found to have a UTI and started on Rocephin. During her stay, the patient was started on a regimen of metoprolol, carvedilol, losartan, HCTZ, and amlodipine for her HTN, which showed improvement, the patient's dyspnea improved with the use of oxygen and duoneb. The patient is being discharged on 12/29 with home health. HANSA RADFORD Dec 29, 2021 11:45 Labs and Pending Lab Test: Laboratory Tests 12/29/21 05:19: White Blood Count 8.8, Red Blood Count 3.92, Hemoglobin 12.1, Hematocrit 38, Mean Corpuscular Volume 96, Mean Corpuscular Hemoglobin 31, Mean Corpuscular H emoglobin Concent 32, Red Cell Distribution Width 13.7, Platelet Count 235, Mean Platelet Volume 9.4, Immature Granulocyte % (Auto) 1, Neutrophils (%) (Auto) 56, Lymphocytes (%) (Auto) 25, Monocytes (%) (Auto) 12, Eosinophils (%) (Auto) 6, Basophils (%) (Auto) 1, Neutrophils # (Auto) 5.0, Lymphocytes # (Auto) 2.2, Monocytes # (Auto) 1.1H, Eosinophils # (Auto) 0.5H, Basophils # (Auto) 0.1, Immature Granulocyte # (Auto) 0.1, Sodium Level 138, Potassium Level 4.1, Chlo ride Level 104, Carbon Dioxide Level 25, Anion Gap 9, Blood Urea Nitrogen 13, Creatinine 0.80, Estimat Glomerular Filtration Rate 74, BUN/Creatinine Ratio 16, Glucose Level 97, Calcium Level 9.6, Corrected Calcium 10.0, Total Bilirubin 0.5, Aspartate Amino Transf (AST/SGOT) 21, Alanine Aminotransferase (ALT/SGPT) 25, Alkaline Phosphatase 48, Total Protein 6.6, Albumin 3.5 Microbiology 12/25/21 Urine Culture - Final, Complete Escherichia coli Proteus vulgaris Home Meds Active Hydrochlorothiazide 25 Mg Tablet 25 Mg PO DAILY Children's Aspirin (Aspirin) 81 Mg Tab.chew 81 Mg PO DAILY@0900 Amlodipine Besylate 5 Mg Tablet 5 Mg PO BID Carvedilol 12.5 Mg Tablet 25 Mg PO BID Promethazine Tablet (Promethazine HCl) 25 Mg Tablet 25 Mg PO Q4H PRN Mucinex (Guaifenesin) 600 Mg Tab.er.12h 600 Mg PO BID Reported Fluticasone Propionate 50 Mcg/Actuation [facility].susp 1-2 [facility] NSEACH DAILY PRN Vitamin D2 (Ergocalciferol (Vitamin D2)) 1,250 Mcg (89500 Unit) Capsule 1,250 Mcg PO MON Ventolin Hfa (Albuterol Sulfate) 90 Mcg Hfa.aer.ad 2 Puff INH Q6H PRN Ondansetron HCl 4 Mg Tablet 4 Mg PO Q6H PRN Losartan Potassium 100 Mg Tablet 100 Mg PO 1200 Hydrocodone-Acetamin 10-325 mg (Hydrocodone/Acetaminophen) 10 Mg-325 Mg Tablet 1 Tab PO TID PRN Assessment/Pt Instructions pcp 1week Discharge Planning: <30 minutes discharge planning Discharge Instructions Discharge Diet: No Restrictions Discharge Physical Examination Vital Signs Vital Signs Date Time Temp Pulse Resp B/P (MAP) Pulse Ox O2 Delivery O2 Flow Rate FiO2 12/29/21 10:19 95 Nasal Cannula 2.00 12/29/21 09:30 61 12/29/21 08:15 36.4 18 170/74 (106) 12/27/21 14:38 21 General Appearance: No Apparent Distress, WD/WN, Chronically ill, Obese Respiratory: Lungs Clear Cardiovascular: Regular Rate, Rhythm Allergies: Coded Allergies: levofloxacin (Verified Allergy, Unknown, NAUSEA, 08/05/15) Discharge Summary Date of Admission Dec 23, 2021 at 23:32 Date of Discharge Discharge Date: Dec 29, 2021 Admission Diagnosis Assessment: Hypertensive urgency NSTEMI type II Exacerbation of COPD Morbid obesity Acute on chronic abdominal pain Wheezing Plan: Home meds Blood pressure management Monitor closely Discharge Diagnosis Assessment: Hypertensive urgency NSTEMI type II Exacerbation of COPD Morbid obesity Acute on chronic abdominal pain Wheezing UTI h/o Sepsis 1 month ago placed on Rocephin empirically after reviewed UCX Suspected KETAN/obesity hypoventilation syndrome with ABG revealing hypercapnia and hypoxia Plan: Home meds Blood pressure management Monitor closely Antibiotics IV fluid Hep-Lock Cullen Stevens Moved to fourth floor (1) Hypertensive urgency Status: Acute Assessment & Plan: She is back on the losartan and the primary provider increased the dose on 12/25. I placed her on carvedilol on and her blood presssure has improved. (2) Elevated troponin Status: Acute Assessment & Plan: The troponin levels are essentially flat. She is not having any symptoms concerning for angina. She does have shortness of breath but this is chronic and actually improving. She has no ischemic changes on her electrocardiogram. Her echocardiogram from this admission shows a normal ejection fraction. I suspect she may have had a very small type II non-ST elevation myocardial infarction due to supply/demand mismatch from the hypertensive urgency. At some point we may want to consider an ischemic evaluation but this could certainly be done as an outpatient unless her clinical course deteriorates. I recommend she continue aspirin 81 mg daily which I started at the time of admission. (3) Pulmonary hypertension Assessment & Plan: I suspect this may be related to undiagnosed sleep apnea and her morbid obesity. This will need to be followed longitudinally. She may benefit from home oxygen if she is not already using this. (4) Primary hypertension Assessment & Plan: As above. If she needs an additional antihypertensive agent, I would avoid amlodipine as this may make her chronic peripheral edema worse. (5) Mixed hyperlipidemia Assessment & Plan: Her LDL level is minimally elevated. She could probably start with dietary changes and then reassess in 1-2 months. (6) Morbid obesity Status: Chronic Assessment & Plan: She needs to work on weight loss. She has been counseled in this regard. BRANDEE MCNALLY DO Dec 29, 2021 11:20
--- NOTE | 2021-12-29 11:46 | Progress Note ---
HANSA RADFORD 12/29/21 1145: Progress Note Patient is an 88-year-old female with a history of COPD, chronic bronchitis, HTN, and morbid obesity who presented the ED on 12/23 with chief complaint of nausea, RUQ abdominal pain, fatigue, and cough. Patient was found to have an elevated troponin shortly after admission and cardiology was consulted with wor kup showing nothing abnormal, possibly a small type II NSTEMI resulting from the patient's hypertensive urgency. On UA, the patient was found to have a UTI and started on Rocephin. During her stay, the patient was started on a regimen of metoprolol, carvedilol, losartan, HCTZ, and amlodipine for her HTN, which showed improvement, the patient's dyspnea improved with the use of oxygen and duoneb. The patient is being discharged on 12/29 with home health. RENETTA ALLISON DO 12/29/212038: Supervisory-Addendum Brief Verification & Attestation Participated in pt care: history, MDM, physical Personally performed: exam, history, MDM, supervision of care Care discussed with: Medical Student Procedures: n/a Results interpretation: Verified all documentation Verification and Attestation of Medical Student E/M Service A medical student performed and documented this service in my presence. I reviewed and verified all information documented by the medical student and made modifications to such information, when appropriate. I personally performed the physical exam and medical decision making. Renetta Allison, Dec 29, 2021,20:41 HANSA RADFORD Dec 29, 2021 11:45 RENETTA ALLISON DO Dec 29, 2021 20:39
[2021-12-29 12:12] VITALS: BP 188/78
[2021-12-29] MEDS: cefTRIAXone 1 GM PRE-MIX 50 ML IV SCH (13:19)
[2021-12-29 15:20] VITALS: BP 124/61
[2021-12-29 20:23] VITALS: BP 155/74
[2021-12-29] MEDS: PROMETHAZINE 25 MG (PHENERGAN) TAB PO PRN (23:17)
[2021-12-30 00:38] VITALS: BP 155/77
[2021-12-30 04:05] VITALS: BP 129/72
[2021-12-30 05:31] LABS: BASOPHILS # (AUTO) 0.1 10^3/uL (0.0-0.1); BASOPHILS % (AUTO) 1 % (0-10); EOSINOPHILS # (AUTO) 0.5 10^3/uL (0.0-0.3); EOSINOPHILS % (AUTO) 6 % (0-10); HEMATOCRIT 38 % (35-52); HEMOGLOBIN 12.3 g/dL (11.5-16.0); LYMPHOCYTES # (AUTO) 2.1 10^3/uL (1.0-4.0); LYMPHOCYTES % (AUTO) 26 % (12-44); MEAN CORPUSCULAR HEMOGLOBIN 32 pg (25-34); MEAN CORPUSCULAR HGB CONC 33 g/dL (32-36); MEAN CORPUSCULAR VOLUME 96 fL (80-99); MEAN PLATELET VOLUME 9.9 fL (9.0-12.2); MONOCYTES # (AUTO) 1.1 10^3/uL (0.0-1.0); MONOCYTES % (AUTO) 13 % (0-12); NEUTROPHILS # (AUTO) 4.3 10^3/uL (1.8-7.8); NEUTROPHILS % (AUTO) 54 % (42-75); PLATELET COUNT 331 10^3/uL (130-400)
[2021-12-30 06:08] LABS: ALBUMIN 3.5 GM/DL (3.2-4.5); BILIRUBIN,TOTAL 0.5 MG/DL (0.1-1.0); CALCIUM 9.6 MG/DL (8.5-10.1); CREATININE SERUM 0.83 MG/DL (0.60-1.30); POTASSIUM 3.5 MMOL/L (3.6-5.0); TOTAL PROTEIN 6.5 GM/DL (6.4-8.2)
[2021-12-30] MEDS: ENOXAPARIN 60 MG/0.6 ML (LOVENOX) SYR SC SCH (06:51)
[2021-12-30] MEDS: RT-ALBUTEROL/IPRATROPIUM 3 ML (DUONEB) VIAL INH SCH (06:53)
[2021-12-30] MEDS: guaiFENesin (MUCINEX) 600 MG TAB PO SCH (08:21)
[2021-12-30] MEDS: PANTOPRAZOLE 40 MG (PROTONIX) VIAL IV SCH (08:21)
[2021-12-30] MEDS: ASPIRIN 81 MG CHEW (CHILDREN'S ASA) PO SCH (08:21)
[2021-12-30] MEDS: LOSARTAN 100 MG (COZAAR) TABLET PO SCH (08:21)
[2021-12-30] MEDS: ONDANSETRON 4 MG/2 ML (SDV) Z0FRAN IV PRN (08:21)
[2021-12-30] MEDS: SENNA W/DOCUSATE (SENOKOT S) TABLET PO SCH (08:27)
[2021-12-30] MEDS: MICONAZOLE 2% POWDER (DESENEX AF) 90 GM TOP SCH (08:31)
[2021-12-30] MEDS: polyethylene glycoL POWDER 17 GM (MIRALAX) PACK PO SCH (08:32)
[2021-12-30 08:34] VITALS: BP 152/70
[2021-12-30] MEDS ORDERED: amLODIPine 5 MG (NORVASC) TAB PO SCH (09:00)
[2021-12-30] MEDS: PROMETHAZINE 25 MG (PHENERGAN) TAB PO PRN (10:41)
--- NOTE | 2021-12-30 11:37 | Discharge Summary ---
Discharge Summary Hospital Course Was the Problem List Reviewed?: Yes Problems/Dx: (1) Hypertensive urgency Status: Acute (2) Elevated troponin Status: Acute (3) Pulmonary hypertension (4) Primary hypertension (5) Mixed hyperlipidemia (6) Morbid obesity Status: Chronic Hospital Course Date of Admission: Dec 23, 2021 at 23:32 Admission Diagnosis : Family Physician/Provider: Marychuy Pham Date of Discharge: 12/30/21 Discharge Diagnosis: Assessment: Hypertensive urgency NSTEMI type II Exacerbation of COPD Morbid obesity Acute on chronic abdominal pain Wheezing UTI h/o Sepsis 1 month ago placed on Rocephin empirically after reviewed UCX Suspected KETAN/obesity hypoventilation syndrome with ABG revealing hypercapnia and hypoxia Plan: Home meds Blood pressure management Monitor closely Antibiotics IV fluid Hep-Lock Lasix Nebs Continue oxygen Cardiology consulted Continue antiemetics Discussed possible discharge tomorrow Encourage patient to ambulate Hospital Course: Patient is an 88-year-old female with a history of COPD, chronic bronchitis, HTN, and morbid obesity who presented the ED on 12/23 with chief complaint of nausea, RUQ abdominal pain, fatigue, and cough. Patient was found to have an elevated troponin shortly after admission and cardiology was consulted with workup showing nothing abnormal, possibly a small type II NSTEMI resulting from the patient's hypertensive urgency. On UA, the patient was found to have a UTI and started on Rocephin. During her stay, the patient was started on a regimen of metoprolol, carvedilol, losartan, HCTZ, and amlodipine for her HTN, which showed improvement, the patient's dyspnea improved with the use of oxygen and duoneb. The patient is being discharged on 12/30 but declined home health. Labs and Pending Lab Test: Laboratory Tests 12/30/21 05:15: White Blood Count 8.0, Red Blood Count 3.91, Hemoglobin 12.3, Hematocrit 38, Mean Corpuscular Volume 96, Mean Corpuscular Hemoglobin 32, Mean Corpuscular Hemoglobin Concent 33, Red Cell Distribution Width 13.4, Platelet Count 331, Mean Platelet Volume 9.9, Immature Granulocyte % (Auto) 0, Neutrophils (%) (Auto) 54, Lymphocytes (%) (Auto) 26, Monocytes (%) (Auto) 13H, Eosinophils (%) (Auto) 6, Basophils (%) (Auto) 1, Neutrophils # (Auto) 4.3, Lymphocytes # (Auto) 2.1, Monocytes # (Auto) 1.1H, Eosinophils # (Auto) 0.5H, Basophils # (Auto) 0.1, Immature Granulocyte # (Auto) 0.0, Sodium Level 139, Potassium Level 3.5L, Chloride Level 101, Carbon Dioxide Level 27, Anion Gap 11, Blood Urea Nitrogen 10, Creatinine 0.83, Estimat Glomerular Filtration Rate 71, BUN/Creatinine Ratio 12, Glucose Level 113H, Calcium Level 9.6, Corrected Calcium 10.0, Total Bilirubin 0.5, Aspartate Amino Transf (AST/SGOT) 23, Alanine Aminotransferase (ALT/SGPT) 28, Alkaline Phosphatase 46, Total Protein 6.5, Albumin 3.5 Microbiology 12/25/21 Urine Culture - Final, Complete Escherichia coli Proteus vulgaris Home Meds Active Mucinex (Guaifenesin) 600 Mg Tab.er.12h 600 Mg PO BID Hydrochlorothiazide 25 Mg Tablet 25 Mg PO DAILY Children's Aspirin (Aspirin) 81 Mg Tab.chew 81 Mg PO DAILY@0900 Amlodipine Besylate 5 Mg Tablet 5 Mg PO BID Carvedilol 12.5 Mg Tablet 25 Mg PO BID Promethazine Tablet (Promethazine HCl) 25 Mg Tablet 25 Mg PO Q4H PRN Reported Fluticasone Propionate 50 Mcg/Actuation [place].susp 1-2 [place] NSEACH DAILY PRN Vitamin D2 (Ergocalciferol (Vitamin D2)) 1,250 Mcg (15313 Unit) Capsule 1,250 Mcg PO MON Ventolin Hfa (Albuterol Sulfate) 90 Mcg Hfa.aer.ad 2 Puff INH Q6H PRN Ondansetron HCl 4 Mg Tablet 4 Mg PO Q6H PRN Losartan Potassium 100 Mg Tablet 100 Mg PO 1200 Hydrocodone-Acetamin 10-325 mg (Hydrocodone/Acetaminophen) 10 Mg-325 Mg Tablet 1 Tab PO TID PRN Assessment/Pt Instructions PCP in 1 week Discharge Planning: <30 minutes discharge planning Discharge Instructions Discharge Diet: No Restrictions Discharge Physical Examination Vital Signs Vital Signs Date Time Temp Pulse Resp B/P (MAP) Pulse Ox O2 Delivery O2 Flow Rate FiO2 12/30/21 08:46 Room Air 12/30/21 08:34 36.6 58 18 152/70 (97) 92 12/29/21 12:12 2.00 12/27/21 14:38 21 General Appearance: No Apparent Distress, WD/WN, Chronically ill Allergies: Coded Allergies: levofloxacin (Verified Allergy, Unknown, NAUSEA, 08/05/15) Discharge Summary Date of Admission Dec 23, 2021 at 23:32 Date of Discharge Discharge Date: Dec 30, 2021 Admission Diagnosis Assessment: Hypertensive urgency NSTEMI type II Exacerbation of COPD Morbid obesity Acute on chronic abdominal pain Wheezing Plan: Home meds Blood pressure management Monitor closely Discharge Diagnosis Assessment: Hypertensive urgency NSTEMI type II Exacerbation of COPD Morbid obesity Acute on chronic abdominal pain Wheezing UTI h/o Sepsis 1 month ago placed on Rocephin empirically after reviewed UCX Suspected KETAN/obesity hypoventilation syndrome with ABG revealing hypercapnia and hypoxia Plan: Home meds Blood pressure management Monitor closely Antibiotics IV fluid Hep-Lock Lasix Nebs Moved to fourth floor (1) Hypertensive urgency Status: Acute Assessment & Plan: She is back on the losartan and the primary provider increased the dose on 12/25. I placed her on carvedilol on and her blood presssure has improved but is still elevated at times. I will add hydrochlorothiazide. (2) Elevated troponin Status: Acute Assessment & Plan: The troponin levels are essentially flat. She is not having any symptoms concerning for angina. She does have shortness of breath but this is chronic and actually improving. She has no ischemic changes on her electrocardiogram. Her echocardiogram from this admission shows a normal ejection fraction. I suspect she may have had a very small type II non-ST elevation myocardial infarction due to supply/demand mismatch from the hypertensive urgency. At some point we may want to consider an ischemic evaluation but this could certainly be done as an outpatient unless her clinical course deteriorates. I recommend she continue aspirin 81 mg daily which I started at the time of admission. (3) Pulmonary hypertension Assessment & Plan: Her echocardiogram from this admission showed moderate pulmonary hypertension with a pulmonary systolic pressure of 50 mmHg. We may want to consider screening her for sleep apnea following discharge if this has not already been done in the past. I suspect the pulmonary hypertension may be related to undiagnosed sleep apnea and her morbid obesity. This will need to be followed longitudinally. She may benefit from home oxygen if she is not already using this. (4) Primary hypertension Assessment & Plan: As above, her blood pressure has remained elevated. I will add hydrochlorothiazide. (5) Mixed hyperlipidemia Assessment & Plan: Her LDL level is minimally elevated. She could probably start with dietary changes and then reassess in 1-2 months. (6) Morbid obesity Status: Chronic Assessment & Plan: She needs to work on weight loss. She has been counseled in this regard. BRANDEE MCNALLY DO Dec 30, 2021 11:37
[2021-12-30 11:46] VITALS: BP 143/63
[2021-12-30] MEDS: cefTRIAXone 1 GM PRE-MIX 50 ML IV SCH (12:27)
[2021-12-30 12:49] VITALS: BP 143/63
[2021-12-31] MEDS ORDERED: PANTOPRAZOLE 40 MG (PROTONIX) TAB PO SCH (09:00)
== END 2021-12-30 12:50 | disposition home or self-care (01) | DRG 281 ==
LOC: EDUNIT# 19:24 → ER 19:26 → CSD 23:32 → 4TH 12-27 13:44
PROVIDERS: ADMIT Internal Medicine; ATTEND Internal Medicine
DX: I16.0 Hypertensive urgency (principal); I21.A1 Myocardial infarction type 2; E66.2 Morbid (severe) obesity with alveolar hypoventilation; J44.1 Chronic obstructive pulmonary disease with (acute) exacerbation; N39.0 Urinary tract infection, site not specified; Z68.43 Body mass index [BMI] 50.0-59.9, adult; I27.20 Pulmonary hypertension, unspecified; I10 Essential (primary) hypertension; E78.2 Mixed hyperlipidemia; R10.30 Lower abdominal pain, unspecified; I25.10 Atherosclerotic heart disease of native coronary artery without angina pectoris; B96.20 Unspecified Escherichia coli [E. coli] as the cause of diseases classified elsewhere; B96.4 Proteus (mirabilis) (morganii) as the cause of diseases classified elsewhere; Z86.16 Personal history of COVID-19; Z79.899 Other long term (current) drug therapy; Z87.891 Personal history of nicotine dependence; Z20.822 Contact with and (suspected) exposure to COVID-19; Z28.21 Immunization not carried out because of patient refusal
CPT/HCPCS: 36415; 36600; 71045; 80048; 80053; 80061; 81000; 82805; 83735; 83874; 83880; 84443; 84484; 85025; 86141; 87077; 87088; 87186; 87636; 93005; 93041; 93306; 94640; 94664; 94760; 96374; 96375